=== PATIENT | female | born 1980 | race Caucasian/White ===

== ENCOUNTER → 2017-11-26 13:59 | Outpatient (CLI) | payer OTHER, SELFPAY ==
[2017-11-26 16:19] LABS: Thyroid Stim Hormone (TSH) 1.31 uIU/mL (0.358-3.74)
== END ==
PROVIDERS: Family Provider Family Medicine; PCP Family Medicine; Visit Provider Family Medicine
DX: E03.9 Hypothyroidism, unspecified (principal)
CPT/HCPCS: 36415; 84443

== ENCOUNTER → 2018-07-08 12:15 | Outpatient (CLI) | payer OTHER, SELFPAY ==
--- NOTE | 2018-07-08 12:38 | MRI_ITS ---
STUDY: MRI BRAIN WITH AND WITHOUT CONTRAST REASON FOR EXAM: Female, 38 years old. Dizziness with left ear pain and pressure TECHNIQUE: Standardized multiplanar fat and water weighted pulse sequences were obtained. 4 ml of Gadavist contrast material was administered intravenously for the contrast portion of the examination. COMPARISON: None. FINDINGS: Normal size of the ventricles and extra-axial spaces for the patient's age. There are a couple of tiny punctate white matter lesions without mass effect or restricted diffusion of uncertain etiology or clinical significance. Normal bilateral basal ganglia. Normal thalami. There is no extra-axial fluid accumulation. Normal flow voids within the major intracranial circulation suggesting patency by spin echo criteria. Normal venous enhancement. There is no enhancing intra-axial or extra-axial abnormality. Normal sella turcica, pituitary gland, infundibular stalk, optic chiasm and hypothalamus. Normal tectal plate and pineal gland. Normal midbrain, peri and medulla. Normal cerebellum. Normal basal cisterns. Normal bilateral temporal bones. Normal bilateral internal auditory canals. No demonstrated orbital abnormality, within the constraints of a routine brain study. Mild mucosal thickening of the maxillary ethmoid and right frontal sinuses Normal calvarium and skull base. Normal visualized soft tissue structures. Normal visualized upper cervical spine. MRI/Brain W/WO Contrast IMPRESSION: Minimal periventricular white matter changes of uncertain etiology or clinical significance. No evidence for acute infarct No enhancing lesions. Specifically no evidence for acoustic or vestibular schwannoma. Mild sinusitis Electronically Signed: Tu Thibodeaux MD at 17:40 EST , Service support ,
== END ==
PROVIDERS: Family Provider Family Medicine; PCP Family Medicine; Referring Provider Otolaryngology; Visit Provider Otolaryngology
DX: R42 Dizziness and giddiness (principal)
CPT/HCPCS: 70553; A9585

== ENCOUNTER 2018-07-11 11:11 | Emergency (ER) | payer OTHER, SELFPAY ==
[2018-07-11 11:12] VITALS: BP 139/77; PULSE 103; RESP 18; TEMP 36.8; O2SAT 98; BMI 18.3
--- NOTE | 2018-07-11 11:54 | EKG12_ITS ---
Test Reason : N AND V Blood Pressure : / mmHG Vent. Rate : 082 BPM Atrial Rate : 082 BPM P-R Int : 116 ms QRS Dur : 078 ms QT Int : 378 ms P-R-T Axes : 078 086 081 degrees QTc Int : 441 ms Normal sinus rhythm Normal ECG Confirmed by COURTNEY MARKS, BROCK ([id number]), make up editor EMELY GUEVARA ([id number]) on 07/13/2018 2:17:15 PM Referred By: Elbert Schwartz Confirmed By:BROCK VALDEZ MD
--- NOTE | 2018-07-11 11:59 | NURSING ---
NO OLD EKGS
[2018-07-11 12:09] LABS: Bacteria 0 SEEN /hpf (None Seen); Mucous, Urine 0 SEEN /hpf (<or=2+); Red Blood Cells-Urine 0 SEEN /hpf (0-5); Squamous Epithelial Cells - UA 0 SEEN /hpf (5-10); White Blood Cells 0 SEEN /hpf (0-5)
[2018-07-11] MEDS: 0.9% Normal Saline 1,000 ML 1000 ML IV (12:09)
[2018-07-11] MEDS: Ondansetron 4 MG/2 ML Vial IV (12:09)
[2018-07-11 12:16] LABS: Absolute Lymphocyte Count 1.84 X10^3/ul (0.83-4.51); Absolute Neutrophil Count 5.3 X10^3/uL (2.0-7.7); Basophil# 0.03 X10^3/uL; Basophil% 0.4 % (0-1); Eosinophil# 0.03 X10^3/uL; Eosinophils% 0.4 % (0-5); Hematocrit 40.6 % (37-47); Hemoglobin 13.5 g/dl (12.0-15.0); Lymphocyte # 1.84 X10^3/ul (4.0); Lymphocyte % 23.6 % (19-41); Mean Corp Hgb Conc 33.3 g/gl (32-36); Mean Corpuscular Hgb 30.9 pg (27.0-32.0); Mean Corpuscular Volume 92.9 fL (81-99); Mean Platelet Vol. 10.8 fl (6.2-12.0); Monocyte# 0.59 X10^3/uL; Monocyte% 7.6 % (0-10); Neutrophil # 5.29 X10^3/uL (2.7-7.7); Neutrophil % 67.9 % (47-70); Platelet Count 221 K/mm3 (150-450); RBC Distribution Width CV 13.7 % (11.6-14.6); RBC Distribution Width SD 45.4 fl (35.1-43.9); Red Blood Count 4.37 M/mm3 (4.2-5.4); White Blood Count 7.8 K/mm3 (4.4-11.0)
[2018-07-11 12:19] LABS: POSITIVE COUNT NO; POSITIVE DIFFERENTIAL NO; POSITIVE MORPHOLOGY NO
[2018-07-11 12:19] LABS: Color, Urine Straw (Yellow); Glucose, Dipstick Normal (Normal); Ketone-Dipstick Negative (Negative); Leukocyte Esterase-Dipstick Negative /ul (Negative); Nitrite-Dipstick Negative (Negative); Occult Blood-Urine Negative /ul (Negative); Protein-Dipstick Negative (Negative); Specific Gravity, Urine 1.005 (1.002-1.030); Urine Bilirubin Dipstick Negative (Negative); Urine Clarity Clear (Clear); Urine Urobilinogen Normal (Normal); Urine pH 6.5 (5.0 - 8.0)
[2018-07-11 12:28] VITALS: BP 110/79; BP 118/83; BP 119/83; PULSE 85; PULSE 94; PULSE 95
[2018-07-11 12:29] LABS: ALB/GLOB Ratio 1.1 RATIO (0.9-2.4); AST(SGOT) 18 U/L (15-37); Alanine Aminotransfer ALT/SGPT 33 U/L (13-56); Albumin, Serum 4.1 g/dL (3.2-5.0); Alkaline Phosphatase 43 U/L (45-117); Anion Gap 11 (5-15); BUN 10 mg/dL (7-18); BUN/Creat Ratio 9.9 RATIO (10-20); Calcium,Total 8.7 mg/dL (8.5-10.1); Chloride 108 mmol/L (98-107); Creatinine, Serum 1.01 mg/dL (0.55-1.02); EST Glomerular Filtration Rate 64 mL/min (>60); Est Glom Filt Rate - Afr Amer 78 mL/min (>60); Estimated Creatinine Clearance 53.02 ml/min; Globulin 3.6 g/dL (2.2-4.2); Glucose 95 mg/dL (74-106); Potassium 3.4 mmol/L (3.5-5.1); Protein, Total 7.7 g/dL (6.4-8.2); Sodium Level 143 mmol/L (136-145)
[2018-07-11 12:30] LABS: Pregnancy, Serum, hCG Quali. NEGATIVE Negative (0-9 Nonpreg)
--- NOTE | 2018-07-11 12:49 | ED.DCSUM_ITS ---
- ER Visit Summary Date of Service: 07/11/18 Chief Complaint: Nausea History of Present Illness: The patient is a [address] Medel. She reports that she has had nausea intermittently since June 06. She states that this began while she was doing neck exercises. She reports that she has had intermittent neck soreness since that time. She denies any vertigo. No change in her vision. No slurred speech. She did see Dr. Schwartz for this. She had an MRI that did not show any acute disease. She is also had balance testing. States that she felt improved between June 28 of July 04 while on Medrol Dosepak. She began Omnicef 2 days ago for sinusitis. Patient reports that she has waves of nausea that seem to begin in her head and then spread throughout. She reports that she has palpitations during this. The episodes last hours at a time. She denies any headache, numbness, or weakness. She does report that she is lightheaded. No change with standing. She has not passed out. Review of systems: General: No fever, chills, cold sweats. Cardiovascular: No chest pain, palpitations. Respiratory: No cough, shortness of breath, dyspnea on exertion. Gastrointestinal: No abdominal pain, vomiting, diarrhea, melena, or hematochezia. Genitourinary: No dysuria, frequency, hematuria. Skin: No rash. Neuro: No headache, numbness, weakness. Physical Examination: Vitals: Stable. Afebrile. General: Well-nourished and well-developed. Head: Normocephalic atraumatic. Neck: Supple, no lymphadenopathy. No JVD. No vertebral tenderness palpation. Mild tenderness palpation to the left trapezius muscle and paraspinous musculature. Cardiovascular: Regular rate and rhythm. No murmurs. Respiratory: No respiratory distress. Clear to auscultation bilaterally. Abdominal: Soft, nontender, nondistended, normal bowel sounds. No guarding, rebound, or peritoneal signs. Back: Nontender. Extremities: Nontender, no edema. Skin: Normal color, no rash. Neurologic: Alert and oriented ?3. Cranial nerves II through XII are intact. Normal strength and sensation. Psych: Normal affect. Test Results: EKG is sinus at 82 with no acute changes. CBC is normal. Chem-7 is more for potassium 3.4 chloride 108. LFTs marked for an alk phos of 43. UA is normal. Parents test is negative. Emergency Department Course and Treatment: Patient negative acetic vital signs. She was given a liter normal saline. She was given Zofran IV. She is resting comfortably. Treatment Plan: Discussed with patient at this time I do not have an explanation for her nausea. She will be discharged with Zofran. Instructed to follow-up with Dr. Medel for further evaluation and treatment. Return to the emergency department for any worsening symptoms. Disposition: To home in improved and stable condition. Impression: 1. Nausea, intermittent. This note was generated with [employer] dictation software. It may contain incorrect words, spelling, and punctuation that were not noted in review of the chart prior to signing ED Disposition - Plan for ED Patient: Disposition: Home or Assisted Living Chief Complaint: Nausea/Vomiting Instructions: ED Nausea Vomiting Prescriptions: Ondansetron [Zofran Odt] 4 mg PO Q8H PRN PRN #10 tablet PRN Reason: Nausea Referrals: Enedina Medel MD [Primary Care Provider] - 1-2 Days if not improving
[2018-07-11 13:06] VITALS: BP 109/78; PULSE 68; RESP 18; O2SAT 98
== END 2018-07-11 13:07 | disposition home or self-care (01) ==
LOC: ED 12:21
PROVIDERS: Emergency Provider Emergency Medicine; Family Provider Family Medicine; PCP Family Medicine
DX: R11.0 Nausea (principal); E03.9 Hypothyroidism, unspecified; Z79.899 Other long term (current) drug therapy
CPT/HCPCS: 80053; 81001; 84703; 85025; 93005; 96361; 96374; 99285; J7030; A4216; J2405

== ENCOUNTER → 2018-07-19 15:40 | Outpatient (CLI) | payer OTHER, SELFPAY ==
[2018-07-11 11:12] VITALS: BMI 18.3
--- NOTE | 2018-07-19 15:44 | RAD_ITS ---
STUDY: X-RAY - CERVICAL SPINE REASON FOR EXAM: Female, 38 years old. Migraine headaches TECHNIQUE: 7 view(s) of the cervical spine were obtained. COMPARISON: None FINDINGS: Normal anterior atlantoaxial articulation. Normal odontoid process. There is straightening of the normal cervical lordosis. Normal vertebral bodies and endplates. Normal disc space heights. Normal visualized intervertebral neuroforamina. The soft tissue structures are unremarkable. RAD/Cerv Spine Obl/Flex/Ext Comp IMPRESSION: Normal x-ray examination of the visualized cervical spine. Electronically Signed: Jacques Castillo MD at 11:22 EST , Service support ,
== END ==
PROVIDERS: Family Provider Family Medicine; PCP Family Medicine; Referring Provider Psychiatry & Neurology Neurology; Visit Provider Psychiatry & Neurology Neurology
DX: M54.2 Cervicalgia (principal)
CPT/HCPCS: 72052

== ENCOUNTER 2018-08-22 20:43 | Emergency (ER) | payer OTHER, SELFPAY ==
[2018-08-22 20:44] VITALS: BP 132/98; PULSE 119; RESP 18; TEMP 36.4; O2SAT 100; BMI 19.5
--- NOTE | 2018-08-22 21:05 | ED.DCSUM_ITS ---
- ER Visit Summary Date of Service: 08/22/18 Chief Complaint: neck pressure, afraid to move History of Present Illness: The patient is a 38 F who presents for 1 hour of a pressure sensation in her neck, making her afraid to move. Patient has been having episodes similar to this since May. She states she has episodes every day. She is currently on amitriptyline and thyroid medications for these episodes. Patient states she feels this intense pressure in her neck, and if she moves she feels tingling in her legs. She was feeling well until she had a sharp pain in her right shoulder that radiated to the left shoulder and back and forth. Once it stopped she felt tingly in her face and extremities and thought she was going to pass out. Patient is currently denying any headache, vision changes or dizziness. She has had no loss of bowel or bladder control. No numbness in the groin region. No abdominal pain, vomiting or diarrhea. She denies any history of injury. Physical Examination: Vital signs: afebrile, hemodynamically stable, no hypoxia on room air General: well nourished, well developed, being in bed with the neck slightly hyper extended, very still and sobbing Skin: warm, dry, no rash, no pallor HEENT: normocephalic and atraumatic; PERRL, EOMI, no nystagmus, moist mucous membranes Neck: No midline tenderness, deformities or step-offs. Patient has discomfort but not pain when paraspinal musculature is palpated bilaterally. No masses or lymphadenopathy noted. Patient has passive full range of motion of the neck and complains that her knees tingle when neck is moved. Patient will not actively move her neck. Cardiovascular: Tachycardic rate and rhythm without murmurs, no peripheral edema, 2+ pulses all distal extremities Respiratory: No increased work of breathing, lungs are clear to auscultation bilaterally, no rales, rhonchi or wheezing Abdominal: Abdomen is soft, nontender with normoactive bowel sounds, no guarding or rebound, no masses MSK: Moves all extremities, no deformities, normal strength, hyperreflexive patellar reflexes Neuro: Awake and alert, oriented ?4. No facial droop, sensation and motor function intact and symmetric. Patient feels tingling sensation in all dermatomes when touched on the legs. No sensory deficits on the arms. Tingling sensation of touched on the neck. Test Results: Medications Given Discontinued Medications Lorazepam (Ativan) 1 mg PO X1 ONE Stop: 08/22/18 21:06 Last Admin: 08/22/18 21:08 Dose: 1 mg Emergency Department Course and Treatment: Patient is currently under the care of physicians for this ongoing issue with her neck discomfort and episodes of dizziness. Patient currently has no red flag symptoms that would be concerning for spinal cord compression and requiring an emergent MRI. Patient has to be in physical therapy for 6 weeks before she gets her neck MRI with her primary care doctor. Patient is in physical therapy at this time and states the exercises do help. Because of patient's high level of agitation and holding her neck in a very stiff position, patient was given Ativan for muscle relaxation. Reevaluation, patient states that the Ativan did not help at all. Patient is still complaining of tingling in her legs, and states that when I touched her legs it felt like I was hitting her funny bone. Patient had this sensation in all areas of her legs and it was not specific to one dermatome. Patient was offered a prescription for Ativan and declined saying that it did not help with the tingling. Patient was offered a neck brace to help stabilize her neck and declined. Patient was offered lab work including blood sugar and electrolytes, and she declined saying this it are been done, including a blood sugar check on the way in by ambulance. I discussed with patient that she needs to follow-up with her doctor regarding the outpatient MRI of her neck. Patient had no discomfort while I was bumping the bed while I was reevaluating her and having to discussion about her condition. She did at one time turn her head to the left to answer a question of mine and did it without any obvious discomfort or difficulty. At this time there is no emergent indication for an MRI in the emergency department. Patient's tachycardia would improve while she rested and would increase again when I would speak to her, and see more related to her leve l of anxiousness, she would become tearful as she talked about her condition. Patient was strongly encouraged to follow-up with her doctors and continue the physical therapy. She was discharged home. Treatment Plan: [] Disposition: [] Impression: Paresthesias of the extremities, pressure sensation in the neck This note was generated with Dragon dictation software. It may contain incorrect words, spelling, and punctuation that were not noted in review of the chart prior to signing ED Disposition - Plan for ED Patient: Disposition: Home or Assisted Living Instructions: ED Paraesthesias Referrals: Enedina Medel MD [Primary Care Provider] - As soon as possible Additional Instructions: Continue your medications and your physical therapy as prescribed by your doctor. If you have any worsening of your condition or any new concerning symptoms, please return immediately to the emergency department for another evaluation.
[2018-08-22] MEDS: LORazepam 1 MG Tablet PO (21:08)
[2018-08-22 22:39] VITALS: BP 134/82; PULSE 105; RESP 18; O2SAT 100
== END 2018-08-22 23:03 | disposition home or self-care (01) ==
PROVIDERS: Emergency Provider Emergency Medicine; Family Provider Family Medicine; PCP Family Medicine
DX: R20.2 Paresthesia of skin (principal); M79.89 Other specified soft tissue disorders; E03.9 Hypothyroidism, unspecified; Z79.899 Other long term (current) drug therapy
CPT/HCPCS: 99284

== ENCOUNTER → 2018-11-03 | Outpatient (CLI) | payer OTHER, SELFPAY ==
--- NOTE | 2018-11-03 11:19 | RAD_ITS ---
HISTORY: HEADACHES, NECK PAIN, THORACIC BACK PAIN EXAM/TECHNIQUE: XR Spine Thoracic Min 4 Views: COMPARISON: None. FINDINGS: # of images incl. paperwork: 5 No fracture or dislocation or osseous destruction. Alignment anatomic. No significant degenerative changes. No acute findings in the soft tissues. RAD/Thoracic Spine Min 4 Views IMPRESSION: No acute findings. at [id number] Reported and signed by: Anuj Wooten MD Electronically Signed: Anuj Wooten, at 4:20 EDT Tel , Service support ,
== END | disposition home or self-care (01) ==
LOC: RAD 11:09
PROVIDERS: Family Provider Family Medicine; PCP Family Medicine; Referring Provider Psychiatry & Neurology Neurology; Visit Provider Psychiatry & Neurology Neurology
DX: M54.6 Pain in thoracic spine (principal)
CPT/HCPCS: 72074

== ENCOUNTER → 2019-01-27 | Outpatient (CLI) | payer OTHER, SELFPAY ==
[2019-01-27 12:18] LABS: Thyroid Stim Hormone (TSH) 1.11 uIU/mL (0.358-3.74)
== END | disposition home or self-care (01) ==
LOC: BFHLAB 09:11
PROVIDERS: Family Provider Family Medicine; PCP Family Medicine; Visit Provider Family Medicine
DX: E89.0 Postprocedural hypothyroidism (principal)
CPT/HCPCS: 36415; 84443

== ENCOUNTER → 2019-02-10 | Outpatient (CLI) | payer OTHER, SELFPAY ==
--- NOTE | 2019-02-10 12:33 | MRI_ITS ---
STUDY: MRI CERVICAL SPINE WITHOUT CONTRAST REASON FOR EXAM: Female, 39 years old. Head and neck pain TECHNIQUE: Standardized fat and water weighted pulse sequences were obtained in the sagittal and axial planes. COMPARISON: Cervical spine x-ray 07/19/2018 FINDINGS: Normal foramen magnum and brainstem-cervical cord junction. Normal craniovertebral junction. Normal anterior atlantoaxial articulation. Normal odontoid process. Normal cervical lordosis. Normal vertebral bodies and posterior osseous elements. C2-3: Normal endplates. Normal disc height, signal and morphology. Normal central canal and intervertebral neural foramina. C3-4: Normal endplates. Normal disc height, signal and morphology. Normal central canal and intervertebral neural foramina. C4-5: Normal endplates. Normal disc height, signal and morphology. Normal central canal and intervertebral neural foramina. C5-6: Normal endplates. There is mild posterior disc bulge with minimal ventral thecal sac and narrowing. Normal intervertebral neural foramina. C6-7: Normal endplates. Normal disc height, signal and morphology. Normal central canal and intervertebral neural foramina. C7-T1: Normal endplates. Normal disc height, signal and morphology. Normal central canal and intervertebral neural foramina. Normal cervical cord. Normal visualized soft tissue structures. MRI/Spine Cervical (Routine) IMPRESSION: Mild degenerative change at C5-C6. Electronically Signed: Sumit Sweet, at 16:19 EDT Tel , Service support ,
== END | disposition home or self-care (01) ==
LOC: MRI 12:24
PROVIDERS: Family Provider Family Medicine; PCP Family Medicine; Referring Provider Psychiatry & Neurology Neurology; Visit Provider Psychiatry & Neurology Neurology
DX: M54.2 Cervicalgia (principal)
CPT/HCPCS: 72141

== ENCOUNTER → 2019-04-15 | Outpatient (CLI) | payer OTHER, SELFPAY ==
--- NOTE | 2019-04-15 16:00 | MRI_ITS ---
STUDY: MRI LUMBAR SPINE WITHOUT CONTRAST REASON FOR EXAM: Female, 39 years old. Numbness in legs and back pain TECHNIQUE: Standardized fat and water weighted pulse sequences were obtained in the sagittal and axial planes. COMPARISON: None FINDINGS: T12-L1: Normal endplates. Normal disc height, hydration and morphology. Normal bilateral facet joints. Normal central canal and bilateral lateral recesses. Normal bilateral intervertebral neural foramina. Normal lumbar lordosis. There is no substantial scoliosis. Normal conus medullaris that terminates at T12-L1 L1-2: Normal endplates. Normal disc height, hydration and morphology. Normal bilateral facet joints. Normal central canal and bilateral lateral recesses. Normal bilateral intervertebral neural foramina. L2-3: Normal endplates. Normal disc height, hydration and morphology. Normal bilateral facet joints. Normal central canal and bilateral lateral recesses. Normal bilateral intervertebral neural foramina. L3-4: Normal endplates. Normal disc height, hydration and minimal annular bulge. Normal bilateral facet joints. Normal central canal and bilateral lateral recesses. Normal bilateral intervertebral neural foramina. L4-5: Normal endplates. Normal disc height, hydration and minimal annular bulge.. Normal bilateral facet joints. Normal central canal and bilateral lateral recesses. Normal bilateral intervertebral neural foramina. L5-S1: Normal endplates. Normal disc height, hydration and morphology. Normal bilateral facet joints. Normal central canal and bilateral lateral recesses. Normal bilateral intervertebral neural foramina. Normal visualized sacral ala. Normal visualized paraspinous soft tissue structures. MRI/Spine Lumbar (Routine) IMPRESSION: No evidence for acute fracture or other significant bony pathology. Minimal bulging of the annuli at L3-4 and L4-5. No focal disc protrusion or spinal stenosis Electronically Signed: Tu Thibodeaux MD at 20:01 EDT , Service support ,
--- NOTE | 2019-04-15 16:45 | MRI_ITS ---
STUDY: MRI THORACIC SPINE WITH AND WITHOUT CONTRAST REASON FOR EXAM: Female, 39 years old. Paraplegia with back pain and leg weakness TECHNIQUE: IV Dotarem 9 was administered for the contrast portion of the examination. COMPARISON: None. FINDINGS: Normal kyphosis of the thoracic spine. There is no substantial scoliosis. No evidence for acute fracture or subluxation. Small interosseous hemangioma within the T12 vertebral body. T1-2, T2-3, T3-4, T4-5, T5-6, T6-7, T7-8, T8-9, T9-10, T10-11, T11-12: Normal endplates. Normal disc hydration, heights and morphology of the corresponding intervertebral discs. Normal central canal and intervertebral neural foramina at the corresponding levels. Normal visualized thoracic cord. Normal conus medullaris that terminates at T12-L1 The soft tissue structures are unremarkable. There is no enhancing abnormality. MRI/Spine Thoracic W/WO Contrast IMPRESSION: Small interosseous hemangioma of T12 otherwise normal unenhanced and enhanced MRI examination of the thoracic spine. Electronically Signed: Tu Thibodeaux MD at 16:52 EDT , Service support ,
== END | disposition home or self-care (01) ==
LOC: MRI 15:22
PROVIDERS: Family Provider Family Medicine; PCP Family Medicine; Referring Provider Psychiatry & Neurology Neurology; Visit Provider Psychiatry & Neurology Neurology
DX: G82.22 Paraplegia, incomplete (principal)
CPT/HCPCS: 72148; 72157; A9575

== ENCOUNTER → 2020-01-31 14:02 | Outpatient (CLI) | payer OTHER, SELFPAY ==
[2020-01-31 15:28] LABS: Absolute Lymphocyte Count 1.92 X10^3/uL (0.83-4.51); Absolute Neutrophil Count 4.1 X10^3/uL (2.0-7.7); Basophil# 0.07 X10^3/uL; Eosinophil# 0.19 X10^3/uL; Eosinophils% 2.8 % (0-5); Hematocrit 38.2 % (37-47); Hemoglobin 12.3 g/dL (12.0-15.0); Lymphocyte # 1.92 X10^3/ul (4.0); Lymphocyte % 28.3 % (19-41); Mean Corp Hgb Conc 32.2 g/dL (32-36); Mean Corpuscular Hgb 30.4 pg (27.0-32.0); Mean Corpuscular Volume 94.6 fL (81-99); Mean Platelet Vol. 11.5 fl (6.2-12.0); Monocyte# 0.45 X10^3/uL; Monocyte% 6.6 % (0-10); NRBC Flagged by Analyzer 0 % (0-5); Neutrophil # 4.13 X10^3/uL (2.7-7.7); Neutrophil % 60.9 % (47-70); Platelet Count 257 K/mm3 (150-450); Red Blood Count 4.04 M/mm3 (4.2-5.4); White Blood Count 6.8 K/mm3 (4.4-11.0)
[2020-01-31 16:47] LABS: AST(SGOT) 42 U/L (15-37); Alanine Aminotransfer ALT/SGPT 79 U/L (13-56); Albumin, Serum 3.6 g/dL (3.2-5.0); Alkaline Phosphatase 55 U/L (45-117); Bilirubin, Direct 0.15 mg/dL (0.00-0.30); Globulin 4.1 g/dL (2.2-4.2); Lipase 188 U/L (73-393); Protein, Total 7.7 g/dL (6.4-8.2); Thyroid Stim Hormone (TSH) 0.05 uIU/mL (0.358-3.74)
[2020-02-02 16:08] LABS: Endomysial Antibody IgA Negative (Negative)
[2020-02-02 20:37] LABS: Immunoglobulin A 300 mg/dL (87-352); t-Transglutaminase IgA <2 U/mL (0-3)
== END ==
PROVIDERS: PCP Family Medicine; Visit Provider Family Medicine
DX: R10.13 Epigastric pain (principal); E89.0 Postprocedural hypothyroidism
CPT/HCPCS: 36415; 80076; 82784; 83516; 83690; 84443; 85025; 86255

== ENCOUNTER → 2020-02-22 14:48 | Outpatient (CLI) | payer OTHER, SELFPAY ==
--- NOTE | 2020-02-22 14:54 | CT_ITS ---
STUDY: CT ABDOMEN AND PELVIS WITH CONTRAST REASON FOR EXAM: Female, 40 years old. Umbilical pain. Intermittent diarrhea. RADIATION DOSAGE (If Supplied By Facility): CTDIvol = ( 5.72 ) mGy, DLP = ( 219.78 ) mGycm TECHNIQUE: Transaxial images were obtained from the dome of the diaphragm to the symphysis pubis with oral contrast. 75 ml of ISOVUE-300 contrast was administered. Sagittal and coronal images were reconstructed. Individualized dose optimization techniques were used for this CT. COMPARISON: None. FINDINGS: The visualized lung bases are clear. The visualized portions of the heart and pericardium are within normal limits. There are no calcified gallstones present. The liver is within normal limits. There are no suspicious hepatic lesions. The spleen is normal in size. The pancreas is within normal limits. The adrenal glands are within normal limits. There are no renal or ureteral stones. There is no hydronephrosis. There are no focal renal lesions. Normal visualized stomach. There is no bowel obstruction or inflammation. The appendix is visualized and appears normal. The aorta is normal in caliber. There is no abdominal or pelvic free air, free fluid, fluid collection or lymphadenopathy. There are no destructive osseous lesions. CT/Abdomen/Pelvis WITH Contrast IMPRESSION: No acute abdominal or pelvic pathology. Electronically Signed: Bebo Holley, at 18:22 EDT Tel , Service support ,
== END ==
PROVIDERS: PCP Family Medicine; Referring Provider Family Medicine; Visit Provider Family Medicine
DX: R10.13 Epigastric pain (principal)
CPT/HCPCS: 74177; Q9967

== ENCOUNTER → 2020-04-17 15:48 | Outpatient (CLI) | payer OTHER, SELFPAY ==
[2020-04-17 17:34] LABS: Thyroid Stim Hormone (TSH) 0.15 uIU/mL (0.358-3.74)
== END ==
PROVIDERS: PCP Family Medicine; Visit Provider Family Medicine
DX: E89.0 Postprocedural hypothyroidism (principal)
CPT/HCPCS: 36415; 84443

== ENCOUNTER → 2020-07-28 08:36 | Outpatient (CLI) | payer OTHER, SELFPAY | PROVIDERS: PCP Family Medicine; Referring Provider Family Medicine; Visit Provider Family Medicine | DX: E89.0 Postprocedural hypothyroidism (principal) | CPT/HCPCS: 36415; 84443 ==

== ENCOUNTER → 2020-09-17 15:19 | Outpatient (CLI) | payer BC, SELFPAY ==
[2020-09-17 18:04] LABS: Thyroid Stim Hormone (TSH) 1.17 uIU/mL (0.358-3.74)
== END ==
PROVIDERS: PCP Family Medicine; Visit Provider Family Medicine
DX: E89.0 Postprocedural hypothyroidism (principal)
CPT/HCPCS: 36415; 84443

== ENCOUNTER → 2020-12-03 10:30 | Outpatient (CLI) | payer BC, SELFPAY ==
[2020-12-03 13:08] LABS: T4 Free Direct 1.29 ng/dL (0.76-1.46); Thyroid Stim Hormone (TSH) 9.86 uIU/mL (0.358-3.74)
== END ==
PROVIDERS: PCP Family Medicine; Referring Provider Family Medicine; Visit Provider Family Medicine
DX: E89.0 Postprocedural hypothyroidism (principal)
CPT/HCPCS: 36415; 84439; 84443

== ENCOUNTER → 2021-01-23 09:09 | Outpatient (CLI) | payer BC, SELFPAY ==
[2021-01-23 10:53] LABS: T4 Free Direct 1.34 ng/dL (0.76-1.46); Thyroid Stim Hormone (TSH) 7.82 uIU/mL (0.358-3.74)
== END ==
PROVIDERS: PCP Family Medicine; Referring Provider Family Medicine; Visit Provider Family Medicine
DX: E89.0 Postprocedural hypothyroidism (principal)
CPT/HCPCS: 36415; 84439; 84443

== ENCOUNTER → 2021-04-02 14:45 | Outpatient (CLI) | payer BC, SELFPAY ==
[2021-04-02 18:27] LABS: T4 Free Direct 1.07 ng/dL (0.76-1.46)
== END ==
PROVIDERS: PCP Family Medicine; Referring Provider Family Medicine; Visit Provider Family Medicine
DX: E89.0 Postprocedural hypothyroidism (principal)
CPT/HCPCS: 36415; 84439; 84443

== ENCOUNTER → 2021-05-17 13:53 | Outpatient (CLI) | payer BC, SELFPAY ==
[2021-05-17 15:24] LABS: T4 Free Direct 1.19 ng/dL (0.76-1.46); Thyroid Stim Hormone (TSH) 3.17 uIU/mL (0.358-3.74)
== END ==
PROVIDERS: PCP Family Medicine; Referring Provider Family Medicine; Visit Provider Family Medicine
DX: E89.0 Postprocedural hypothyroidism (principal)
CPT/HCPCS: 36415; 84439; 84443

== ENCOUNTER 2021-07-11 16:32 | Outpatient (CLI) | payer BC, SELFPAY ==
[2021-07-11 18:25] LABS: T4 Free Direct 1.48 ng/dL (0.76-1.46); Thyroid Stim Hormone (TSH) 1.51 uIU/mL (0.358-3.74)
== END 2021-07-11 23:59 | disposition short-term general hospital (02) ==
LOC: MTLAB 16:34
PROVIDERS: PCP Family Medicine; Referring Provider Family Medicine; Visit Provider Family Medicine
DX: E03.9 Hypothyroidism, unspecified (principal)
CPT/HCPCS: 36415; 84439; 84443

== ENCOUNTER → 2021-11-07 | Outpatient (CLI) | payer BC, SELFPAY ==
[2021-11-07 15:32] LABS: T4 Free Direct 1.19 ng/dL (0.76-1.46); Thyroid Stim Hormone (TSH) 7.71 uIU/mL (0.358-3.74)
== END | disposition home or self-care (01) ==
LOC: MTLAB 12:38
PROVIDERS: PCP Family Medicine; Referring Provider Family Medicine; Visit Provider Family Medicine
DX: E03.9 Hypothyroidism, unspecified (principal)
CPT/HCPCS: 36415; 84439; 84443

== ENCOUNTER → 2021-12-19 | Outpatient (CLI) | payer BC, SELFPAY ==
[2021-12-19 18:18] LABS: T4 Free Direct 1.38 ng/dL (0.76-1.46)
== END | disposition home or self-care (01) ==
LOC: MTLAB 16:17
PROVIDERS: PCP Family Medicine; Referring Provider Family Medicine; Visit Provider Family Medicine
DX: E03.9 Hypothyroidism, unspecified (principal)
CPT/HCPCS: 36415; 84439; 84443

== ENCOUNTER → 2022-02-22 | Outpatient (CLI) | payer BC, SELFPAY ==
[2022-02-22 10:06] LABS: T4 Free Direct 1.32 ng/dL (0.76-1.46); Thyroid Stim Hormone (TSH) 3.19 uIU/mL (0.358-3.74)
== END | disposition home or self-care (01) ==
LOC: LAB 08:27
PROVIDERS: PCP Family Medicine; Referring Provider Family Medicine; Visit Provider Family Medicine
DX: E89.0 Postprocedural hypothyroidism (principal)
CPT/HCPCS: 36415; 84439; 84443

== ENCOUNTER 2022-07-31 22:17 | Emergency (ER) | payer BC, SELFPAY ==
[2022-07-31 22:18] VITALS: BP 126/89; PULSE 92; RESP 16; TEMP 36.4; O2SAT 99; BMI 17.9
[2022-07-31 22:21] VITALS: BP 126/89; PULSE 92; RESP 16; TEMP 36.4; O2SAT 99
[2022-07-31 23:31] LABS: Absolute Lymphocyte Count 1.86 X10^3/uL (0.83-4.51); Absolute Neutrophil Count 5.8 X10^3/uL (2.0-7.7); Basophil# 0.05 X10^3/uL; Basophil% 0.6 % (0-1); Eosinophil# 0.03 X10^3/uL; Eosinophils% 0.4 % (0-5); Hematocrit 39.2 % (37-47); Lymphocyte # 1.86 X10^3/ul (0.83-4.51); Mean Corp Hgb Conc 33.2 g/dL (32-36); Mean Corpuscular Volume 93.3 fL (81-99); Mean Platelet Vol. 11.3 fl (6.2-12.0); Monocyte# 0.66 X10^3/uL; Monocyte% 7.8 % (0-10); NRBC Flagged by Analyzer 0 % (0-5); Neutrophil # 5.81 X10^3/uL (2.7-7.7); Neutrophil % 68.8 % (47-70); Platelet Count 197 K/mm3 (150-450); RBC Distribution Width CV 13.6 % (11.6-14.6); RBC Distribution Width SD 46.2 fl (35.1-43.9); White Blood Count 8.4 K/mm3 (4.4-11.0)
[2022-07-31 23:45] LABS: Anion Gap 9 (5-15); BUN 17 mg/dL (7-18); BUN/Creat Ratio 21.1 RATIO (10-20); Calcium,Total 9.2 mg/dL (8.5-10.1); Chloride 109 mmol/L (98-107); Creatinine, Serum 0.81 mg/dL (0.55-1.02); EST Glomerular Filtration Rate 82 mL/min (>60); Est Glom Filt Rate - Afr Amer 99 mL/min (>60); Estimated Creatinine Clearance 62.26 ml/min; Glucose 130 mg/dL (74-106); Potassium 3.3 mmol/L (3.5-5.1); Sodium Level 142 mmol/L (136-145); Thyroid Stim Hormone (TSH) 6.75 uIU/mL (0.358-3.74)
[2022-07-31 23:56] LABS: Alcohol, Blood (Medical)-Serum < 3.0 mg/dL
--- NOTE | 2022-08-01 05:15 | ED.RN ---
Spoke with [facility] about possible acceptance for this pt. [facility] informed this RN about possible acceptance to their facility.
--- NOTE | 2022-08-01 05:47 | EX.ED.DYSGE1 ---
HPI History of Present Illness Chief Complaint: Alt LOC Narrative Narrative: Patient is a 42-year-old female with past medical history of hypothyroidism. She was brought in by EMS today for altered mental status. states he called EMS because the patient was not acting right. The patient denies any fevers or chills chest pain abdominal pain dysuria concern for . She states there is no alcohol or drug abuse going on. She denies any previous admission to a psychiatric hospital. 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 Home Medications levothyroxine 100 mcg tablet 50 mcg PO QMONTH 12/04/14 [History Last Taken 02/14/16] levothyroxine 75 mcg tablet 75 mcg PO DAILY 07/31/22 [History Last Taken Unknown] Allergy/AdvReac Type Severity Reaction Status Date / Time No Known Allergies Allergy Verified 07/31/22 22:24 Surgical History (Updated 07/31/22 @ 22:22 by Mily Jolly) Hx of section Social History Smoking Status: Never smoker ROS ROS ED Constitutional Constitutional ED: Denies chills or fever(s) Eyes Eyes: Denies change in vision ENT ENT ED: Denies sore throat Cardiovascular Cardiovascular: Denies chest pain Respiratory/Chest Respiratory/Chest: Denies cough or dyspnea Gastrointestinal Gastrointestinal: Denies abdominal pain, diarrhea, nausea or vomiting Genitourinary Genitourinary ED: Denies dysuria Musculoskeletal Musculoskeletal: Denies myalgias Integumentary Denies rash Neurologic Neurologic: Denies headache(s) Psychiatric Psychiatric: Denies suicidal ideation or suicidal thoughts Hematologic/Lymphatic Hematologic/Lymphatic: Denies easy bleeding or easy bruising EXAM Physical Exam Const Vital Signs: 07/31/22 22:18 07/31/22 22:21 Temperature 97.6 F L 97.6 F L Temperature Source Temporal Temporal Pulse Rate 92 92 Respiratory Rate 16 16 Blood Pressure 126/89 H 126/89 H Blood Pressure Mean 101 101 Pulse Ox 99 99 Oxygen Delivery Method Room Air Room Air Positive well nourished and well developed General Appearance ED: well developed HEENT Reports moist mucous membranes Eyes PERRL and EOMs intact bilaterally Neck supple Resp normal respiratory effort and clear to auscultation bilaterally Cardio regular rate and regular rhythm GI normal to inspection, nondistended, normoactive bowel sounds, non-tender, non-distended and no masses Auscultation: normoactive bowel sounds Palpation: soft Extremity normal to inspection Neuro oriented x3 and CN's II-XII intact bilaterally Sensorium / Orientation: alert Psych Psych Narrative: Patient has tangential thinking with flight of ideas and pressured speech. Skin no rashes or lesions noted MDM MDM MDM Narrative Medical decision making narrative: Patient presented to the ER with stable vitals. She is awake and alert but with talking with patient she has pressured speech flight of ideas and tangential thinking. There is also occasional hallucinations noted. This is concerning for undiagnosed bipolar disorder. The patient is not homicidal or suicidal but according to has not been taking care of herself. Based on her severe symptoms I do not think outpatient therapy will be appropriate and recommend inpatient treatment. Secondary to this crisis center was contacted and they evaluated the patient. They agree that based on her symptoms she will require aggressive inpatient therapy. The medical work-up reveals no clinically significant findings. The patient is medically cleared for transfer/placement to a psychiatric hospital Lab Data Attestation: I reviewed the patient's lab results. Labs: Laboratory Results - last 24 hr 07/31/22 07/31/22 07/31/22 23:08 23:08 23:08 WBC 8.4 RBC 4.20 Hgb 13.0 Hct 39.2 MCV 93.3 MCH 31.0 MCHC 33.2 RDW Std Deviation 46.2 H RDW Coeff of Marilyn 13.6 Plt Count 197 MPV 11.3 Immature Gran % (Auto) 0.400 Neut % (Auto) 68.8 Lymph % (Auto) 22.0 Labette % (Auto) 7.8 Eos % (Auto) 0.4 Baso % (Auto) 0.6 Absolute Neuts (auto) 5.8 Absolute Lymphs (auto) 1.86 Nucleated RBC % 0 Sodium 142 Potassium 3.3 L Chloride 109 H Carbon Dioxide 24.0 Anion Gap 9 BUN 17 Creatinine 0.81 Estim Creat Clear Calc 62.26 Est GFR (MDRD) Af Amer 99 Est GFR (MDRD) Non-Af 82 BUN/Creatinine Ratio 21.1 H Glucose 130 H Calcium 9.2 TSH 6.75 H Ethyl Alcohol < 3.0 Discharge Plan Triage Chief Complaint: Alt LOC ED Provider: Ran Gilliam Dx/Rx/DC Orders Clinical Impression: Bipolar I disorder with reagan, Hypothyroidism Prescriptions: No Action levothyroxine 100 MCG tablet 50 mcg PO QMONTH levothyroxine 75 mcg tablet 75 mcg PO DAILY Label Comments: TAKE 1 TABLET BY MOUTH EVERY DAY OF THE MONTH EXCEPT 1 DAY Primary Care Provider: Enedina Medel Referrals: Enedina Medel MD [Primary Care Provider] - Disposition Disposition: Psychiatric Hospital or Unit Discharge Location: [facility]
[2022-08-01 05:51] VITALS: BP 123/95; PULSE 101; RESP 16; O2SAT 99
[2022-08-01] MEDS: Levothyroxine 75 MCG Tablet PO (06:08)
[2022-08-01 09:00] VITALS: BP 145/86; PULSE 117; O2SAT 98
== END 2022-08-01 10:03 ==
PROVIDERS: Emergency Provider Emergency Medicine; PCP Family Medicine; Visit Provider Emergency Medicine
DX: F31.9 Bipolar disorder, unspecified (principal); E03.9 Hypothyroidism, unspecified; Z79.899 Other long term (current) drug therapy
CPT/HCPCS: 80048; 82077; 84443; 85025; 87426; 99283

== ENCOUNTER → 2022-12-06 | Outpatient (CLI) | payer BC, SELFPAY ==
[2022-12-06 09:01] LABS: Absolute Lymphocyte Count 0.95 X10^3/uL (0.83-4.51); Absolute Neutrophil Count 5.7 X10^3/uL (2.0-7.7); Basophil# 0.06 X10^3/uL; Basophil% 0.8 % (0-1); Eosinophil# 0.12 X10^3/uL; Eosinophils% 1.6 % (0-5); Hematocrit 39.9 % (37-47); Hemoglobin 13.1 g/dL (12.0-15.0); Lymphocyte # 0.95 X10^3/ul (0.83-4.51); Lymphocyte % 12.8 % (19-41); Mean Corp Hgb Conc 32.8 g/dL (32-36); Mean Corpuscular Hgb 32.5 pg (27.0-32.0); Mean Platelet Vol. 10.5 fl (6.2-12.0); Monocyte# 0.53 X10^3/uL; Monocyte% 7.2 % (0-10); NRBC Flagged by Analyzer 0 % (0-5); Neutrophil # 5.73 X10^3/uL (2.7-7.7); Neutrophil % 77.3 % (47-70); Platelet Count 169 K/mm3 (150-450); RBC Distribution Width CV 12.9 % (11.6-14.6); RBC Distribution Width SD 46.9 fl (35.1-43.9); Red Blood Count 4.03 M/mm3 (4.2-5.4); White Blood Count 7.4 K/mm3 (4.4-11.0)
[2022-12-06 09:28] LABS: ALB/GLOB Ratio 1.1 RATIO (0.9-2.4); AST(SGOT) 19 U/L (15-37); Alanine Aminotransfer ALT/SGPT 33 U/L (13-56); Albumin, Serum 3.9 g/dL (3.2-5.0); Alkaline Phosphatase 51 U/L (45-117); Anion Gap 3 (5-15); BUN 17 mg/dL (7-18); BUN/Creat Ratio 16.5 RATIO (10-20); Calcium,Total 8.9 mg/dL (8.5-10.1); Chloride 108 mmol/L (98-107); Cholesterol 158 mg/dL (200); Creatinine, Serum 1.03 mg/dL (0.55-1.02); EST Glomerular Filtration Rate 62 mL/min (>60); Est Glom Filt Rate - Afr Amer 75 mL/min (>60); Globulin 3.7 g/dL (2.2-4.2); Glucose 101 mg/dL (74-106); High Density Lipoprotein 67 mg/dL; Potassium 4.1 mmol/L (3.5-5.1); Protein, Total 7.6 g/dL (6.4-8.2); Sodium Level 138 mmol/L (136-145); T4 Free Direct 1.29 ng/dL (0.76-1.46); Thyroid Stim Hormone (TSH) 6.69 uIU/mL (0.358-3.74); Triglycerides 40 mg/dL; Very Low Density Lipoprotein 8 mg/dL (5-40)
[2022-12-08 07:42] LABS: Vitamin D,25 Hydroxy 51.5 ng/mL
== END | disposition home or self-care (01) ==
LOC: LAB 08:40
PROVIDERS: PCP Family Medicine; Referring Provider Family Medicine; Visit Provider Family Medicine
DX: Z00.00 Encounter for general adult medical examination without abnormal findings (principal); F31.81 Bipolar II disorder; E03.9 Hypothyroidism, unspecified; E55.9 Vitamin D deficiency, unspecified
CPT/HCPCS: 36415; 80053; 80061; 82306; 84439; 84443; 85025

== ENCOUNTER → 2023-02-03 | Outpatient (CLI) | payer BC, SELFPAY ==
[2023-02-03 15:46] LABS: T4 Free Direct 0.73 ng/dL (0.76-1.46)
== END | disposition home or self-care (01) ==
LOC: BFHLAB 13:54
PROVIDERS: PCP Family Medicine; Referring Provider Family Medicine; Visit Provider Family Medicine
DX: E03.9 Hypothyroidism, unspecified (principal)
CPT/HCPCS: 36415; 84439; 84443

== ENCOUNTER → 2023-04-16 | Outpatient (CLI) | payer BC, SELFPAY ==
[2023-04-16 17:50] LABS: T4 Free Direct 0.78 ng/dL (0.76-1.46)
== END | disposition home or self-care (01) ==
LOC: LAB 16:19
PROVIDERS: PCP Family Medicine; Referring Provider Family Medicine; Visit Provider Family Medicine
DX: E89.0 Postprocedural hypothyroidism (principal)
CPT/HCPCS: 36415; 84439; 84443

== ENCOUNTER → 2023-07-04 | Outpatient (CLI) | payer OTHER, SELFPAY ==
--- OUTSIDE RECORDS SUMMARY | 2023-07-04 10:15 | XMS RPT_ITS | CCD ---
Author Name Unknown Address [address] [place] [address] Organization [facility] Results Test Name Value Interpretation Reference Range Facil ity Summary Purpose Family History No Family History Records Found Advance Directives No Advanced Directives Records Found Additional Source Comments INFORMATION SOURCE (unrecogn ized section and content) FOR RECORDS PERTAINING TO PATIENTS WHO ARE OR HAVE BEEN ENROLLED IN A CHEMICAL DEPENDENCY/SUBSTANCEABUSE PROGRAM, SOME INFORMATION MAY BE OMITTED. This clinical summary was aggregated from multiple sources. Caution should be exercised in using it in the provision of clinical care. This summary normalizes information from multiple sources, and as a consequence, information in this document may materially change the coding, format and clinical context of patient data. In addition, data may be omitted in some cases. CLINICAL DECISIONS SHOULD BE BASED ON THE PRIMARY CLINICAL RECORDS. [employer] provides no warranty or guarantee of the accuracy or completeness of information in this document.
[2023-07-04 11:15] LABS: T4 Free Direct 1.04 ng/dL (0.76-1.46); Thyroid Stim Hormone (TSH) 2.88 uIU/mL (0.358-3.74)
== END | disposition home or self-care (01) ==
LOC: LAB 10:12
PROVIDERS: PCP Family Medicine; Referring Provider Family Medicine; Visit Provider Family Medicine
DX: E89.0 Postprocedural hypothyroidism (principal)
CPT/HCPCS: 36415; 84439; 84443

== ENCOUNTER → 2023-10-10 | Outpatient (CLI) | payer OTHER, SELFPAY ==
[2023-10-10 11:27] LABS: Thyroid Stim Hormone (TSH) 3.77 uIU/mL (0.358-3.74)
== END | disposition home or self-care (01) ==
LOC: LAB 10:15
PROVIDERS: PCP Family Medicine; Referring Provider Family Medicine; Visit Provider Family Medicine
DX: E89.0 Postprocedural hypothyroidism (principal)
CPT/HCPCS: 36415; 84443

== ENCOUNTER → 2024-01-21 | Outpatient (CLI) | payer OTHER, SELFPAY ==
[2024-01-21 18:16] LABS: Thyroid Stim Hormone (TSH) 0.34 uIU/mL (0.358-3.74)
== END | disposition home or self-care (01) ==
LOC: MTLAB 16:29
PROVIDERS: PCP Family Medicine; Referring Provider Family Medicine; Visit Provider Family Medicine
DX: E89.0 Postprocedural hypothyroidism (principal)
CPT/HCPCS: 36415; 84443

== ENCOUNTER → 2024-04-16 | Outpatient (CLI) | payer OTHER, SELFPAY ==
[2024-04-16 09:44] LABS: Absolute Neutrophil Count 2.9 X10^3/uL (2.0-7.7); Basophil# 0.04 X10^3/uL; Basophil% 0.8 % (0-1); Eosinophil# 0.35 X10^3/uL; Eosinophils% 6.6 % (0-5); Hematocrit 39.9 % (37-47); Hemoglobin 12.8 g/dL (12.0-15.0); Lymphocyte % 30.1 % (19-41); Mean Corp Hgb Conc 32.1 g/dL (32-36); Mean Corpuscular Hgb 30.5 pg (27.0-32.0); Mean Corpuscular Volume 95.2 fL (81-99); Monocyte# 0.38 X10^3/uL; Monocyte% 7.1 % (0-10); NRBC Flagged by Analyzer 0 % (0-5); Neutrophil # 2.93 X10^3/uL (2.7-7.7); Platelet Count 195 K/mm3 (150-450); RBC Distribution Width CV 12.8 % (11.6-14.6); RBC Distribution Width SD 44.4 fl (35.1-43.9); Red Blood Count 4.19 M/mm3 (4.2-5.4); White Blood Count 5.3 K/mm3 (4.4-11.0)
[2024-04-16 10:27] LABS: ALB/GLOB Ratio 1.1 RATIO (0.9-2.4); AST(SGOT) 21 U/L (15-37); Alanine Aminotransfer ALT/SGPT 27 U/L (13-56); Albumin, Serum 4.1 g/dL (3.2-5.0); Alkaline Phosphatase 61 U/L (45-117); Anion Gap 7 (5-15); BUN 19 mg/dL (7-18); Calcium,Total 8.9 mg/dL (8.5-10.1); Chloride 109 mmol/L (98-107); Cholesterol 185 mg/dL (200); Creatinine, Serum 1.12 mg/dL (0.55-1.02); EST Glomerular Filtration Rate 56 mL/min (>60); Est Glom Filt Rate - Afr Amer 67 mL/min (>60); Globulin 3.7 g/dL (2.2-4.2); Glucose 95 mg/dL (74-106); High Density Lipoprotein 79 mg/dL; Potassium 3.6 mmol/L (3.5-5.1); Protein, Total 7.8 g/dL (6.4-8.2); Sodium Level 141 mmol/L (136-145); T4 Free Direct 1.17 ng/dL (0.76-1.46); Thyroid Stim Hormone (TSH) 0.737 uIU/mL (0.358-3.740); Triglycerides 62 mg/dL; Very Low Density Lipoprotein 12 mg/dL (5-40)
[2024-04-18 07:58] LABS: Vitamin D,25 Hydroxy 47.9 ng/mL
== END | disposition home or self-care (01) ==
LOC: LAB 08:29
PROVIDERS: PCP Family Medicine; Referring Provider Family Medicine; Visit Provider Family Medicine
DX: Z00.00 Encounter for general adult medical examination without abnormal findings (principal); F31.81 Bipolar II disorder; E03.9 Hypothyroidism, unspecified; E55.9 Vitamin D deficiency, unspecified
CPT/HCPCS: 36415; 80053; 80061; 82306; 84439; 84443; 85025

== ENCOUNTER 2024-09-04 08:38 | Emergency (ER) | payer OTHER, SELFPAY ==
[2024-09-04 08:39] VITALS: BP 127/87; PULSE 114; RESP 20; TEMP 36.6; O2SAT 99; BMI 19.3
--- NOTE | 2024-09-04 09:15 | EKG12_ITS ---
Test Reason : TACHYCARDIA Blood Pressure : */* mmHG Vent. Rate : 106 BPM Atrial Rate : 106 BPM P-R Int : 128 ms QRS Dur : 68 ms QT Int : 332 ms P-R-T Axes : 80 85 77 degrees QTcB Int : 441 ms Sinus tachycardia Otherwise normal ECG Confirmed by COURTNEY MARKS, BROCK ([id number]), acquisition editor JUAN HOWELL ([id number]) on 09/05/2024 8:19:53 AM Referred By: ADRYAN Confirmed By: BROCK VALDEZ MD
[2024-09-04 09:21] LABS: Absolute Lymphocyte Count 0.96 X10^3/uL (0.83-4.51); Absolute Neutrophil Count 2.6 X10^3/uL (2.0-7.7); Basophil# 0.04 X10^3/uL; Eosinophil# 0.09 X10^3/uL; Eosinophils% 2.3 % (0-5); Hematocrit 39.9 % (37-47); Hemoglobin 13.4 g/dL (12.0-15.0); Lymphocyte # 0.96 X10^3/ul (0.83-4.51); Lymphocyte % 24.2 % (19-41); Mean Corp Hgb Conc 33.6 g/dL (32-36); Mean Corpuscular Hgb 31.4 pg (27.0-32.0); Mean Corpuscular Volume 93.4 fL (81-99); Mean Platelet Vol. 10.8 fl (6.2-12.0); Monocyte# 0.29 X10^3/uL; Monocyte% 7.3 % (0-10); NRBC Flagged by Analyzer 0 % (0-5); Neutrophil # 2.58 X10^3/uL (2.7-7.7); Neutrophil % 64.9 % (47-70); Platelet Count 191 K/mm3 (150-450); RBC Distribution Width CV 13.2 % (11.6-14.6); RBC Distribution Width SD 45.6 fl (35.1-43.9); Red Blood Count 4.27 M/mm3 (4.2-5.4)
--- NOTE | 2024-09-04 09:30 | RAD_ITS ---
EXAM: CHEST PA AND LATERAL CLINICAL HISTORY: PALPITAIONS COMPARISON: None. TECHNIQUE: PA and lateral views of the chest obtained. FINDINGS: The cardiac silhouette is not enlarged. No evidence of pulmonary edema. No pulmonary parenchymal consolidative opacities. No pneumothorax or significant pleural effusion. No acute osseous abnormality is identified. RAD/Chest PA and Lateral IMPRESSION: No radiographic evidence of acute cardiopulmonary disease. Reading Location: [id number]
[2024-09-04] MEDS: 0.9% Normal Saline (1000mL) 1,000 ML 999 ML IV (09:49)
[2024-09-04 09:54] LABS: Anion Gap 13 (5-15); BUN 19 mg/dL (4-19); BUN/Creat Ratio 18.6 RATIO (10-20); Calcium,Total 9.4 mg/dL (7.6-11.0); Carbon Dioxide 23.9 mmol/L (21.0-32.0); Chloride 105 mmol/L (98-108); Creatinine, Serum 1.04 mg/dL (0.70-1.20); EST Glomerular Filtration Rate 67 (>60); Estimated Creatinine Clearance 51.11 ml/min (50-250); Glucose 128 mg/dL (70-99); Potassium 3.9 mmol/L (3.3-5.1); Sodium Level 142 mmol/L (133-145); Troponin T High Sensitivity < 6 ng/L (<=14)
--- NOTE | 2024-09-04 10:04 | ED.VIS.CHEST ---
HPI History of Present Illness Chief Complaint: Palpitations Narrative Narrative: Patient is a 44-year-old female with past medical history of hypothyroidism on levothyroxine who presents to the emergency department with a chief complaint of elevated heart rate for the last 2 days. States that yesterday she did notice that while her heart was racing periodically she would feel lightheaded. She states that she had her thyroid checked yesterday as there had been some medication adjustments for her thyroid. Patient denies any recent travel history denies any history of blood clots. Patient denies any recent sick contacts. 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 Home Medications ?Medication ?Instructions ?Recorded ?Last Taken ?Type levothyroxine 100 mcg tablet 50 mcg PO QMONTH 12/04/14 02/14/16 History levothyroxine 75 mcg tablet 75 mcg PO DAILY 07/31/22 Unknown History Allergy/AdvReac Type Severity Reaction Status Date / Time No Known Allergies Allergy Verified 09/04/24 08:42 Surgical History Hx of section Social History Smoking Status: Never smoker ROS ROS ED ROS Narrative Constitutional: Denies fevers, chills, headaches, dizziness Eyes: Denies changes double vision blurry vision Cardiovascular: Denies chest pain or palpitations Respiratory: Complains of mild shortness of breath denies cough Abdomen: Denies abdominal pain nausea vomit diarrhea : Denies any urinary symptoms Neurological: Denies numbness, weakness, tingling Musculoskeletal: Denies back pain Skin: Denies rashes or lesions EXAM Physical Exam Narrative Exam Narrative: General: Patient lying in bed rest comfortably did not appear to be in acute distress Head: Atraumatic, normocephalic Eyes: PERRL bilaterally, EOMI bilateral, no conjunctival injection noted Neck: Soft, supple, trachea midline Cardiovascular: Patient tachycardic with a regular rhythm no murmurs gallops rubs noted respiratory: clear to auscultation bilaterally Abdomen: Soft, nondistended, nontender to palpation Extremities: +5/5 strength noted in the bilateral upper and lower extremity, radial pulse +2/4 in the bilateral extremities, no pedal edema exam Neurological: Patient follow commands knew that she was at [facility] year is 2024 Skin: Warm, dry, intact Const Vital Signs: 09/04/24 08:39 09/04/24 10:39 09/04/24 12:00 Temperature 97.9 F Temperature Source Oral Pulse Rate 114 H 101 H 92 Respiratory Rate 20 H 15 19 H Blood Pressure 127/87 H 107/76 110/75 Blood Pressure Mean 100 86 86 Pulse Ox 99 100 98 Oxygen Delivery Method Room Air Room Air Room Air 09/04/24 12:33 Temperature 98.2 F Temperature Source Pulse Rate 85 Respiratory Rate 18 Blood Pressure 113/96 H Blood Pressure Mean 101 Pulse Ox 98 Oxygen Delivery Method MDM MDM MDM Narrative Medical decision making narrative: Patient is a 44-year-old female who presented to the emergency department with a chief complaint of palpitations. On the differential diagnose includes Melamin to hyperthyroidism, ACS, pneumonia, pneumothorax, PE. Once workup is obtained reviewed she will be reevaluated. Patient CBC reviewed and showed no evidence leukocytosis with blood count normal at 4, he was 13.4, platelet count was noted be 191. Patient sodium normal 142, potassium normal 3.9, creatinine was 1.04. Patient's troponin was less than 6 with a delta troponin of less than 6. Patient's EKG showed sinus tachycardia the rate of 106 bpm with a ME interval 128 QTc of normal at 441. Patient's TSH blood work obtained from the other day was reviewed and was normal at 0.66 with a normal free T4 of 1.40. Patient chest x-ray reviewed by myself by radiology showed no acute cardiopulmonary processes. Given the patient's symptoms and normal workup thus far will add on D-dimer. D-dimer was normal at less than 0.27. Reevaluation patient her heart rate has normalized she is feeling better she would like to go home at this point time. She is advised to stay hydrated follow-up with your doctor in outpatient setting to discuss the potential need for a Holter monitor. We do not have any here in the emergency department today to prescribe her 1. She is vies return with worsening symptoms or concerns she is agreeable this plan all question concerns answered at bedside. Lab Data Labs: Laboratory Results - last 24 hr 09/04/24 09/04/24 09/04/24 09:11 10:01 11:18 WBC 4.0 L RBC 4.27 Hgb 13.4 Hct 39.9 MCV 93.4 MCH 31.4 MCHC 33.6 RDW Std Deviation 45.6 H RDW Coeff of Marilyn 13.2 Plt Count 191 MPV 10.8 Immature Gran % (Auto) 0.300 Neut % (Auto) 64.9 Lymph % (Auto) 24.2 Kings % (Auto) 7.3 Eos % (Auto) 2.3 Baso % (Auto) 1.0 Absolute Neuts (auto) 2.6 Absolute Lymphs (auto) 0.96 Nucleated RBC % 0 D-Dimer Quant (PE/DVT) < 0.27 L Sodium 142 Potassium 3.9 Chloride 105 Carbon Dioxide 23.9 Anion Gap 13 BUN 19 Creatinine 1.04 Estim Creat Clear Calc 51.11 Est GFR (MDRD) Non-Af 67 BUN/Creatinine Ratio 18.6 Glucose 128 H Calcium 9.4 Troponin T High Sens < 6 Troponin T Hi Sens 2 Hr < 6 Radiography Diagnostic Testing: Clinical Impression(s) from Imaging Studies Chest X-Ray 09/04/24 09:30 IMPRESSION: No radiographic evidence of acute cardiopulmonary disease. Reading Location: [address] Discharge Plan Triage Chief Complaint: Palpitations ED Provider: Seb Goodwin Dx/Rx/DC Orders Clinical Impression: Palpitations Prescriptions: No Action levothyroxine 100 MCG tablet 50 mcg PO QMONTH levothyroxine 75 mcg tablet 75 mcg PO DAILY Patient Comments: TAKE 1 TABLET BY MOUTH EVERY DAY OF THE MONTH EXCEPT 1 DAY Primary Care Provider: Enedina Medel Referrals: Enedina Medel MD [Primary Care Provider] - Activity Restrictions/Additional Instructions: Follow-up with your doctor in outpatient setting. Discussed with them about wearing a Holter monitor. Return with worsening symptoms or any concerns. Your thyroid test were normal. Your chest x-ray looked normal and your rest your blood work was normal today. Print Language: Persian Disposition Disposition: Home, Self Care
[2024-09-04 10:39] VITALS: BP 107/76; PULSE 101; RESP 15; O2SAT 100
[2024-09-04 10:41] LABS: D-Dimer Quantitative (DVT/PE) < 0.27 FEU/ug/m (0.27-0.49)
[2024-09-04 11:55] LABS: Troponin T High Sens 2 HR < 6 ng/L (<=14)
[2024-09-04 12:00] VITALS: BP 110/75; PULSE 92; RESP 19; O2SAT 98
[2024-09-04 12:33] VITALS: BP 113/96; PULSE 85; RESP 18; TEMP 36.8; O2SAT 98
== END 2024-09-04 12:52 | disposition home or self-care (01) ==
PROVIDERS: Emergency Provider Emergency Medicine; PCP Family Medicine; Visit Provider Emergency Medicine
DX: R00.2 Palpitations (principal); E03.9 Hypothyroidism, unspecified; Z79.890 Hormone replacement therapy
CPT/HCPCS: 71046; 80048; 84484; 85025; 85379; 93005; 96360; 96361; 99283; A4216

== ENCOUNTER → 2024-12-07 | Outpatient (CLI) | payer OTHER, SELFPAY ==
[2024-12-07 16:48] LABS: Thyroid Stim Hormone (TSH) 0.603 uIU/mL (0.300-4.200)
--- OUTSIDE RECORDS SUMMARY | 2024-12-07 21:52 | XMS RPT_ITS | CCD ---
Author Organization [facility] Care Team Providers Care Ash Conveyor Operator Name Role Phone Enedina Medel MD Primary Care Provider ENEDINA MEDEL Primary Care Unavailable ANA MARÍA GOODE Attending Unavailable ENEDINA MEDEL Primary Care Unavailable ANA MARÍA GOODE Attending Unavailable Dr. Enedina Medel MD Primary Care Provider Dr. Enedina Medel MD Attending Provider [phone] Enedina Medel MD Referring Provider [phone] Seb Goodwin DO Emergency Provider [phone] Dr. Seb Goodwin DO Attending Provider [phone] Enedina Medel Primary Care Unavailable Enedina Medel Attending Unavailable Enedina Medel Referring Unavailable Enedina Medel Primary Care Unavailable Enedina Medel Attending Unavailable Enedina Medel Referring Unavailable Enedina Medel Primary Care Unavailable Enedina Medel Attending Unavailable Enedina Medel Referring Unavailable Lizy, Enedina Primary Care Unavailable Seb Goodwin Attending Unavailable Enedina Medel Attending Unavailable Enedina Medel Referring Unavailable Enedina Medel Primary Care Unavailable Enedina Medel Attending Unavailable Lizy Enedina Referring Unavailable Lizy, Enedina Primary Care Unavailable Medications Current Medications Medication Drug Class(es) Dates Sig (Normalized) Sig (Original) amitriptyline hydrochloride 25 mg oral tablet (3 sources) Tricyclic Antidepressant Start: 08-22-2018 take 50 mg by mouth once daily Amitriptyline Active 50 MG PO DAILY August 22, 2018 1:00am levothyroxine sodium 0.075 mg oral tablet (20 sources) l-Thyroxine Start: 07-31-2022 take 1 tablet by mouth once daily Levothyroxine 75 mcg tablet Active 75 ug PO DAILY July 31, 2022 1:00am Start: 12-04-2014 Levothyroxine 100 MCG tablet Active 50 ug PO EVERY MONTH December 04, 2014 12:00am Start: 12-04-2014 take 50 ug by mouth every month Levothyroxine Active 50 MCG PO EVERY MONTH December 04, 2014 12:00am Start: 12-04-2014 End: 08-18-2023 take 1 tablet by mouth once daily levothyroxine (LEVOXYL) 88 mcg tablet Indications: Hypothyroidism, postsurgical Take 1 tablet by mouth once daily. on Sat and Sun. Take 100 mcg daily Thu-Thu. Take on empty stomach. For Thyroid 24 tablet 0 10/06/2017 08/18/2023 Discontinued Start: 12-04-2014 take 1 tablet by beverly th once daily levothyroxine (LEVOXYL) 100 mcg tablet Indications: Hypothyroidism, postsurgical Take 1 tablet by mouth once daily. Mon- Thu. Take 88 mcg daily on Sat and Sun. Take on empty stomach. For Thyroid. 90 tablet 0 10/06/2017 Active Comment on above: Take 1 tablet by bveerly th once daily. Thu- Thu. Take 88 mcg daily on Sat and Sun. Take on empty stomach. For Thyroid. Take 1 tablet by beverly th once daily. on Sat and Sun. Take 100 mcg daily Thu-Thu. Take on empty stomach. For Thyroid Completed/Discontinued Medications Medication Drug Class(es) Dates Sig (Normalized) Sig (Original) lamoTRIgine 200 mg oral tablet (3 sources) Mood Stabilizer, Anti-epileptic Agent Start: 08-17-2023 lamoTRIgine (LAMICTAL) 200 mg tablet Jnbqikdz-Eb-Hek-Fe -FA ( VITAMIN) ORAL Tab (1 source) Start: 06-10-2010 End: 08-18-2023 take 1 tablet by mouth once daily Qfhvehsf-Bg-Ytt-Fe -FA ( VITAMIN) ORAL Tab Take one(1) tablet daily. 0 06/10/2010 08/18/2023 Discontinued Comment on above: Take one(1) tablet d aily. QUEtiapine 400 mg oral tablet (7 sources) Atypical Antipsychotic Start: 08-18-2023 QUEtiapine (SEROQUEL) 400 mg tablet Start: 08-14-2023 take 1 tablet by beverly th every hour QUEtiapine XR (SEROQUEL XR) 400 mg 24 hr tablet Take 1 tablet by mouth every afternoon. 0 08/14/2023 Active Comment on above: Take 1 tablet by beverly th every afternoon. Take 400 mg by mouth daily at bedtime. Problems Problem Classification Problem Date Documented Date Episodic/Chronic Cardiac dysrhythmias (3 sources) Palpitations; Translations: [Palpitations] Onset: 09-09-2024 09-04-2024 Episodic Complications of surgical procedures or medical care (5 sources) Postoperative hypothyroidism; Translations: [Postprocedural hypothyroidism] Onset: 02-11-2011 06-26-2016 Chronic Immunizations and screening for infectious disease (3 sources) Patient encounter status; Translations: [Encounter for screening for human papillomavirus (HPV)] 08-18-2023 Episodic Menstrual disorders (1 source) Amenorrhea; Translations: [Amenorrhea, unspecified] 08-18-2023 Chronic Mood disorders (6 sources) Manic bipolar I disorder; Translations: [Bipolar disorder, current episode manic without psychotic features, unspecified] 08-09-2022 Chronic Other female genital disorders (4 sources) Polyp of cervix; Translations: [Polyp of cervix uteri] Onset: 08-19-2023 08-18-2023 Episodic Thyroid disorders (6 sources) Hypothyroidism; Translations: [Hypothyroidism, unspecified] 08-09-2022 Chronic Unclassified (3 sources) Uses contraception; Translations: [ control] Onset: 11-07-2015 06-10-2021 Results Test Name Value Interpretation Reference Range Facility 12 Lead EKGon 09-04-2024 12 Lead EKG [facility] Cardiovascular Services [address] [place] [address] 12 Lead EKG 09/04/24 0912 MR#: [id number] Acct: [id number] Name: PERFECTO HOLMAN Rep #: [id number] : 1980 44 From: Jaya Lewis MD Attending Dr: Status: DEP ER Ordering Dr: Seb Goodwin DO Date: 09/04/24 Location: ED Sex: F C Admitted: Test Reason : TACHYCARDIA Blood Pressure : */* mmHG Vent. Rate : 106 BPM Atrial Rate : 106 BPM P-R Int : 128 ms QRS Dur : 68 ms QT Int : 332 ms P-R-T Axes : 80 85 77 degrees QTcB Int : 441 ms Sinus tachycardia Otherwise normal ECG Confirmed by COURTNEY MARKS, JAYA ([id number]), magazine editor JUAN HOWELL ([id number]) on 09/05/2024 8:19:53 AM Referred By: ADRYAN Confirmed By: JAYA LEWIS MD 09/05/24818 Date Jaya Lewis MD CC: Dr. Enedina Medel MD; Dr. Seb Goodwin, DO Signed [facility] Absolute neutrophil countOrd ered By: Seb Goodwin on 09-04-2024 Neutrophils (Bld) [#/Vol] 2.6 10*3/uL 2.0-7.7 [facility] Anion gap in Serum or Plasma Ordered By: Seb Goodwin on 09-04-2024 Anion gap [Moles/Vol] 13 mmol/L 10-27 [facility] BUN/creatinine ratioOrdered By: Seb Goodwin on 09-04-2024 Urea nitrogen/Creatinine [Mass ratio] 18.6 mg/mg 04-03 [facility] Basic Metabolic Profile (BMP )on 09-04-2024 BUN/CRE 18.6 RATIO Normal 04-03 [facility] Comment on above: Performed By: #### L 500.2500, L100.0100, L501.4021 #### [facility] [address] [place], [address] Calcium [Mass/Vol] 9.4 mg/dL Normal 7.6-11.0 [facility] Comment on above: Performed By: #### L 500.2500, L100.0100, L501.4021 #### [facility] [address] [place], [address] Chloride [Moles/Vol] 105 mmol/L Normal 98-108 [facility] Comment on above: Performed By: #### L 500.2500, L100.0100, L501.4021 #### [facility] [address] [place], [address] CO2 [Moles/Vol] 23.9 mmol/L Normal 21.0-32.0 [facility] Comment on above: Performed By: #### L 500.2500, L100.0100, L501.4021 #### [facility] [address] [place], [address] Creatinine [Mass/Vol] 1.04 mg/dL Normal 0.70-1.20 [facility] Comment on above: Performed By: #### L 500.2500, L100.0100, L501.4021 #### [facility] [address] [place], [address] ECRCL 51.11 ml/min Normal 50-250 [facility] Comment on above: Performed By: #### L 500.2500, L100.0100, L501.4021 #### [facility] [address] [place], [address] GAP 13 Normal 5-15 [facility] Comment on above: Performed By: #### L 500.2500, L100.0100, L501.4021 #### [facility] [address] [place], [address] GFR/1.73 sq M.predicted among non-blacks MDRD (S/P/Bld) [Vol rate/Area] 67 mL/min/{1.73_m2} Normal >60 [facility] Comment on above: Result Comment: mL/m in/1.73m2 CKD-EPI Creatinine Equation (2020) Performed By: #### L 500.2500, L100.0100, L501.4021 #### [facility] [address] [place], [address] Glucose [Mass/Vol] 128 mg/dL High 70-99 [facility] Comment on above: Performed By: #### L 500.2500, L100.0100, L501.4021 #### [facility] [address] [place], [address] Potassium [Moles/Vol] 3.9 mmol/L Normal 3.3-5.1 [facility] Comment on above: Performed By: #### L 500.2500, L100.0100, L501.4021 #### [facility] [address] [place], [address] Sodium [Moles/Vol] 142 mmol/L Normal 133-145 [facility] Comment on above: Performed By: #### L 500.2500, L100.0100, L501.4021 #### [facility] [address] [place], [address] Urea nitrogen [Mass/Vol] 19 mg/dL Normal 4-19 [facility] Comment on above: Performed By: #### L 500.2500, L100.0100, L501.4021 #### [facility] [address] [place], [address] Basophil percentageOrdered B y: Seb Goodwin on 09-04-2024 Basophils/100 WBC (Bld) 1.0 % 0-1 [facility] CBC W/Diff, Automatedon 08-14 Absolute Lymph 0.96 X10 3/uL Normal 0.83-4.51 [facility] Comment on above: Performed By: #### L 500.2500, L100.0100, L501.4021 #### [facility] [address] [place], [address] Absolute Neut 2.6 X10 3/uL Normal 2.0-7.7 [facility] Comment on above: Performed By: #### L 500.2500, L100.0100, L501.4021 #### [facility] [address] [place], [address] Basophils/100 WBC (Bld) 1.0 % Normal 0-1 [facility] Comment on above: Performed By: #### L 500.2500, L100.0100, L501.4021 #### [facility] [address] [place], [address] Eosinophils/100 WBC (Bld) 2.3 % Normal 0-5 [facility] Comment on above: Performed By: #### L 500.2500, L100.0100, L501.4021 #### [facility] [address] [place], [address] Erythrocyte distribution width (RBC) [Ratio] 13.2 % Normal 11.6-14.6 [facility] Comment on above: Performed By: #### L 500.2500, L100.0100, L501.4021 #### [facility] [address] [place], [address] Hematocrit (Bld) [Volume fraction] 39.9 % Normal 37-47 [facility] Comment on above: Performed By: #### L 500.2500, L100.0100, L501.4021 #### [facility] [address] [place], [address] Hemoglobin (Bld) [Mass/Vol] 13.4 g/dL Normal 12.0-15.0 [facility] Comment on above: Performed By: #### L 500.2500, L100.0100, L501.4021 #### [facility] [address] [place], [address] IG% 0.300 Normal 0.0-0.9 [facility] Comment on above: Result Comment: IG% - Immature Granulocytes (promyelocytes, myelocytes and metamyelocytes) > 1% indicates that a LEFT SHIFT is Present. Performed By: #### L 500.2500, L100.0100, L501.4021 #### [facility] [address] [place], [address] Lymphocytes/100 WBC (Bld) 24.2 % Normal 19-41 [facility] Comment on above: Performed By: #### L 500.2500, L100.0100, L501.4021 #### [facility] [address] [place], [address] MCH (RBC) [Entitic mass] 31.4 pg Normal 27.0-32.0 [facility] Comment on above: Performed By: #### L 500.2500, L100.0100, L501.4021 #### [facility] [address] [place], [address] MCHC (RBC) [Mass/Vol] 33.6 g/dL Normal 32-36 [facility] Comment on above: Performed By: #### L 500.2500, L100.0100, L501.4021 #### [facility] [address] [place], [address] MCV (RBC) [Entitic vol] 93.4 fL Normal 81-99 [facility] Comment on above: Performed By: #### L 500.2500, L100.0100, L501.4021 #### [facility] [address] [place], [address] Monocytes/100 WBC (Bld) 7.3 % Normal 0-10 [facility] Comment on above: Performed By: #### L 500.2500, L100.0100, L501.4021 #### [facility] [address] [place], [address] Neutrophils/100 WBC (Bld) 64.9 % Normal 47-70 [facility] Comment on above: Performed By: #### L 500.2500, L100.0100, L501.4021 #### [facility] [address] [place], [address] Nucleated RBC (Bld) [#/Vol] 0 10*3/uL Normal 0-5 [facility] Comment on above: Performed By: #### L 500.2500, L100.0100, L501.4021 #### [facility] [address] [place], [address] Platelet mean volume (Bld) [Entitic vol] 10.8 fL Normal 6.2-12.0 [facility] Comment on above: Performed By: #### L 500.2500, L100.0100, L501.4021 #### [facility] [address] [place], [address] Platelets (Bld) [#/Vol] 191 10*3/uL Normal 150-450 [facility] Comment on above: Performed By: #### L 500.2500, L100.0100, L501.4021 #### [facility] [address] [place], [address] RBC (Bld) [#/Vol] 4.27 10*6/uL Normal 4.2-5.4 [facility] Comment on above: Performed By: #### L 500.2500, L100.0100, L501.4021 #### [facility] [address] [place], [address] RDW SD 45.6 fl High 35.1-43.9 [facility] Comment on above: Performed By: #### L 500.2500, L100.0100, L501.4021 #### [facility] [address] [place], [address] WBC (Bld) [#/Vol] 4.0 10*3/uL Low 4.4-11.0 [facility] Comment on above: Performed By: #### L 500.2500, L100.0100, L501.4021 #### [facility] [address] [place], [address] Carbon dioxide, total [Moles /volume] in Central venous bloodOrdered By: Seb Goodwin on 09-04-2024 CO2 [Moles/Vol] 23.9 mmol/L 21.0-32.0 [facility] Chest PA and Lateralon 09-04 Chest PA and Lateral [facility] Imaging Services [address] [place] [address] Chest PA and Lateral MR#: [id number] Acct: [id number] Name: PERFECTO HOLMAN Rep #: [id number] : 1980 F 44 From: Travis Bustillos PCP: Dr. Enedina Medel MD Status: [facility] ER Study: Chest PA and Lateral Date of Exam: 09/04/24 Exam# [id number] Ordering Dr: Seb Goodwin DO EXAM: CHEST PA AND LATERAL CLINICAL HISTORY: PALPITAIONS COMPARISON: None. TECHNIQUE: PA and lateral views of the chest obtained. FINDINGS: The cardiac silhouette is not enlarged. No evidence of pulmonary edema. No pulmonary parenchymal consolidative opacities. No pneumothorax or significant pleural effusion. No acute osseous abnormality is identified. RAD/Chest PA and Lateral IMPRESSION: No radiographic evidence of acute cardiopulmonary disease. Reading Location: [id number] CC: Dr. Enedina Medel MD; Dr. Seb Goodwin DO Airframe Technical Officer: Signed [facility] Chloride assayOrdered By: Josr Goodwin on 09-04-2024 Chloride [Moles/Vol] 105 mmol/L 98-108 [facility] D-Dimer Quantitative (DVT/PE )on 09-04-2024 D-DIMER QUANT < 0.27 Low 0.27-0.49 [facility] Comment on above: Result Comment: NORM AL D-Dimer level (<0.50) indicates no DVT or PE. Performed By: #### L 300.8000 ####[facility] [place] [facility] [address] [place], [address] D-dimer measurement for deep venous thrombosisOrdered By: Seb Goodwin on 09-04-2024 D-Dimer Quantitative (PE/DVT) < 0.27 FEU/ug/m Low 0.27-0.49 [facility] Comment on above: NORMAL D-Dimer level (<0.50) indicates no DVT or PE. Emergency Department Summary on 09-04-2024 Emergency Department Summary [facility] Medical Records Department [address] [place] [address] Emergency Department Summary 09/04/24 MR#: [id number] Acct: [id number] Name: PERFECTO HOLMAN Rep #: [id number] : 1980 44 From: Seb Goodwin DO PCP: Dr. Enedina Medel MD Status:REG ER Location: ED HPI History of Present Illness Chief Complaint: Palpitations Narrative Narrative: Patient is a 44-year-old female with past medical history of hypothyroidism on levothyroxine who presents to the emergency department with a chief complaint of elevated heart rate for the last 2 days. States that yesterday she did notice that while her heart was racing periodically she would feel lightheaded. She states that she had her thyroid checked yesterday as there had been some medication adjustments for her thyroid. Patient denies any recent travel history denies any history of blood clots. Patient denies any recent sick contacts. 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 Home Medications ???Medication ???Instructions ???Recorded ???Last Taken ???Type levothyroxine 100 mcg tablet 50 mcg PO QMONTH 12/04/14 02/14/16 History levothyroxine 75 mcg tablet 75 mcg PO DAILY 07/31/22 Unknown H istory Allergy/AdvReac Type Severity Reaction Status Date / Time No Known Allergies Allergy Verified 09/04/24 08:42 Surgical History Hx of section Social History Smoking Status: Never smoker ROS ROS ED ROS Narrative Constitutional: Denies fevers, chills, headaches, dizziness Eyes: Denies changes double vision blurry vision Cardiovascular: Denies chest pain or palpitations Respiratory: Complains of mild shortness of breath denies cough Abdomen: Denies abdominal pain nausea vomit diarrhea : Denies any urinary symptoms Neurological: Denies numbness, weakness, tingling Musculoskeletal: Denies back pain Skin: Denies rashes or lesions EXAM Physical Exam Narrative Exam Narrative: General: Patient lying in bed rest comfortably did not appear to be in acute distress Head: Atraumatic, normocephalic Eyes: PERRL bilaterally, EOMI bilateral, no conjunctival injection noted Neck: Soft, supple, trachea midline Cardiovascular: Patient tachycardic with a regular rhythm no murmurs gallops rubs noted respiratory: clear to auscultation bilaterally Abdomen: Soft, nondistended, nontender to palpation Extremities: +5/5 strength noted in the bilateral upper and lower extremity, radial pulse +2/4 in the bilateral extremities, no pedal edema exam Neurological: Patient follow commands knew that she was at [facility] year is 2024 Skin: Warm, dry, intact Const Vital Signs: 09/04/24 08:39 09/04/24 10:39 09/04/24 12:00 Temperature 97.9 F Temperature Source Oral Pulse Rate 114 H 101 H 92 Respiratory Rate 20 H 15 19 H Blood Pressure 127/87 H 107/76 110/75 Blood Pressure Mean 100 86 86 Pulse Ox 99 100 98 Oxygen Delivery Method Room Air Room Air Room Air 09/04/24 12:33 Temperature 98.2 F Temperature Source Pulse Rate 85 Respiratory Rate 18 Blood Pressure 113/96 H Blood Pressure Mean 101 Pulse Ox 98 Oxygen Delivery Method MDM MDM MDM Narrative Medical decision making narrative: Patient is a 44-year-old female who presented to the emergency department with a chief complaint of palpitations. On the differential diagnose includes Melamin to hyperthyroidism, ACS, pneumonia, pneumothorax, PE. Once workup is obtained reviewed she will be reevaluated. Patient CBC reviewed and showed no evidence leukocytosis with blood count normal at 4, he was 13.4, platelet count was noted be 191. Patient sodium normal 142, potassium normal 3.9, creatinine was 1.04. Patient's troponin was less than 6 with a delta troponin of less than 6. Patient's EKG showed sinus tachycardia the rate of 106 bpm with a HI interval 128 QTc of normal at 441. Patient's TSH blood work obtained from the other day was reviewed and was normal at 0.66 with a normal free T4 of 1.40. Patient chest x-ray reviewed by myself by radiology showed no acute cardiopulmonary processes. Given the patient's symptoms and normal workup thus far will add on D-dimer. D-dimer was normal at less than 0.27. Reevaluation patient her heart rate has normalized she is feeling better she would like to go home at this point time. She is advised to stay hydrated follow-up with your doctor in outpatient setting to discuss the potential need for a Holter monitor. We do not have any here in the emergency department today to prescribe her 1. She is vies return with worsening symptoms or conc (more content not included)... [facility] Eosinophil percentageOrdered By: Seb Goodwin on 09-04-2024 Eosinophils/100 WBC (Bld) 2.3 % 0-5 [facility] Erythrocyte distribution wid th ratioOrdered By: Seb Goodwin on 09-04-2024 Erythrocyte distribution width (RBC) [Ratio] 13.2 % 11.6-14.6 [facility] Erythrocyte distribution wid th standard deviationOrdered By: Seb Goodwin on 09-04-2024 Erythrocyte distribution width (RBC) [Entitic vol] 45.6 fL High 35.1-43.9 [facility] Estimation of creatinine janet aranceOrdered By: Seb Goodwin on 09-04-2024 Estimated Creatinine Clearance Calc 51.11 ml/min 50-250 [facility] GFR/1.73 sq M.predicted mamie g non-blacks MDRD (S/P/Bld) [Vol rate/Area]Ordered By: Seb Goodwin on 09-04-2024 Estimated GFR (MDRD) Non-Af Amer 67 >60 [facility] Comment on above: mL/min/1.73m2 CKD-EP I Creatinine Equation (2020) Hematocrit Auto (Bld) [Volum e fraction]Ordered By: Seb Goodwin on 09-04-2024 Hematocrit (Bld) [Volume fraction] 39.9 % 37-47 [facility] Hemoglobin measurementOrdere d By: Seb Goodwin on 09-04-2024 Hemoglobin (Bld) [Mass/Vol] 13.4 g/dL 12.0-15.0 [facility] Immature granulocytes/100 WB C Auto (Bld)Ordered By: Seb Goodwin on 09-04-2024 Immature granulocytes/100 WBC (Bld) 0.300 % 0.0-0.9 [facility] Comment on above: IG% - Immature Granu locytes (promyelocytes, myelocytes and metamyelocytes) > 1% indicates that a LEFT SHIFT is Present. L499.0042on 09-04-2024 Trop T High Sen < 6 Normal <=14 [facility] Comment on above: Performed By: #### L 499.0042 ####[facility] [address] [place], [address] L499.0043on 09-04-2024 Trop T High Sen Normal <=14 [facility] Comment on above: Result Comment: Canc elled via OM: Order cancelled - Patient discharged Performed By: #### L 499.0043 #### [facility] [address] [place], [address] L501.4021on 09-04-2024 Trop T High Sen < 6 Normal <=14 [facility] Comment on above: Performed By: #### L 500.2500, L100.0100, L501.4021 #### [facility] [address] [place], [address] Lymphocytes Auto (Unsp spec) [#/Vol]Ordered By: Seb Goodwin on 09-04-2024 Lymphocytes (Bld) [#/Vol] 0.96 10*3/uL 0.83-4.51 [facility] Lymphocytes/100 WBC Auto (Un sp spec)Ordered By: Seb Goodwin on 09-04-2024 Lymphocytes/100 WBC (Bld) 24.2 % 19-41 [facility] MCV (mean corpuscular volume ) determinationOrdered By: Seb Goodwin on 09-04-2024 MCV (RBC) [Entitic vol] 93.4 fL 81-99 [facility] Mean corpuscular hemoglobin (MCH) determinationOrdered By: Seb Goodwin on 09-04-2024 MCH (RBC) [Entitic mass] 31.4 pg 27.0-32.0 [facility] Mean corpuscular hemoglobin concentration (MCHC) determinationOrdered By: Seb Goodwin on 09-04-2024 MCHC (RBC) [Mass/Vol] 33.6 g/dL 32-36 [facility] Mean platelet volume determi nationOrdered By: Seb Goodwin on 09-04-2024 Platelet mean volume (Bld) [Entitic vol] 10.8 fL 6.2-12.0 [facility] Monocyte percentageOrdered B y: Seb Goodwin on 09-04-2024 Monocytes/100 WBC (Bld) 7.3 % 0-10 [facility] Neutrophil percentageOrdered By: Seb Goodwin on 09-04-2024 Neutrophils/100 WBC (Bld) 64.9 % 47-70 [facility] No Panel InformationOrdered By: Seb Goodwin on 09-04-2024 Troponin T High Sensitivity < 6 ng/L <14 [facility] Nucleated red blood cell per centageOrdered By: Seb Goodwin on 09-04-2024 Nucleated RBC/100 WBC (Bld) [Ratio] 0 % 0-5 [facility] Platelet countOrdered By: Josr Goodwin on 09-04-2024 Platelets (Bld) [#/Vol] 191 10*3/uL 150-450 [facility] Potassium (Unsp spec) [Mass/ Vol]Ordered By: Seb Goodwin on 09-04-2024 Potassium [Moles/Vol] 3.9 mmol/L 3.3-5.1 [facility] RBC Auto (Bld) [#/Vol]Ordere d By: Seb Goodwin on 09-04-2024 RBC (Bld) [#/Vol] 4.27 10*6/uL 4.2-5.4 [facility] Serum creatinine measurement (mass/volume)Ordered By: Seb Goodwin on 09-04-2024 Creatinine [Mass/Vol] 1.04 mg/dL 0.70-1.20 [facility] Serum glucose measurement (m ass/volume)Ordered By: Seb Goodwin on 09-04-2024 Glucose [Mass/Vol] 128 mg/dL High 70-99 [facility] Serum or plasma calcium cat urement (mass/volume)Ordered By: Seb Goodwin on 09-04-2024 Calcium [Mass/Vol] 9.4 mg/dL 7.6-11.0 [facility] Serum or plasma urea nitroge n measurement (mass/volume)Ordered By: Seb Goodwin on 09-04-2024 Urea nitrogen [Mass/Vol] 19 mg/dL 4-19 [facility] Sodium levelOrdered By: Bernardo Goodwin on 09-04-2024 Sodium [Moles/Vol] 142 mmol/L 133-145 [facility] Troponin T.cardiac High sens itivity method [Mass/Vol]Ordered By: Seb Goodwin on 09-04-2024 Troponin T High Sensitivity 2 Hour < 6 ng/L <14 [facility] White blood cell (WBC) count Ordered By: Seb Goodwin on 09-04-2024 WBC (Bld) [#/Vol] 4.0 10*3/uL Low 4.4-11.0 [facility] T4 Free Directon 09-03-2024 T4 FREE DIRECT 1.40 ng/dL Normal 0.76-1.46 [facility] Comment on above: Performed By: #### L 506.0400, L501.9520 #### [facility] [address] [place], [place] [address]froilan. [place], [place], [id number] T4 freeOrdered By: Enedina rolle on 09-03-2024 Free T4 [Mass/Vol] 1.40 ng/dL 0.76-1.46 [facility] TSH DL <= 0.005 mIU/L QnOrde red By: Enedina Medel on 09-03-2024 Thyroid Stimulating Hormone (TSH) 0.661 uIU/mL 0.300-4.200 [facility] Thyroid Stim Hormone (TSH)on 09-03-2024 TSH 0.661 uIU/mL Normal 0.300-4.200 [facility] Comment on above: Performed By: #### L 506.0400, L501.9520 #### [facility] [address] [place], [address] Vitamin D,25 Hydroxyon 04-18 Vitamin D 25-OH 47.9 ng/mL Normal [facility] Comment on above: Result Comment: Melba min D 25(OH) Status Range Deficiency <20 ng/mL (50nmol/L) Insufficiency 20 - 30 ng/mL (50 - 75 nmol/L) Sufficiency 30 - 100 ng/mL (75 - 250 nmol/L) Toxicity >100 ng/mL (>250 nmol/L) Performed By: #### L 500.4050, L506.1000, L506.0400, L100.0100, L500.4100, L501.9520 ####[facility] [address] [place], [address] CBC W/Diff, Automatedon 11 Absolute Lymph 1.60 X10 3/uL Normal 0.83-4.51 [facility] Comment on above: Performed By: #### L 500.4050, L506.1000, L506.0400, L100.0100, L500.4100, L501.9520 ####[facility] [address] [place], [address] Absolute Neut 2.9 X10 3/uL Normal 2.0-7.7 [facility] Comment on above: Performed By: #### L 500.4050, L506.1000, L506.0400, L100.0100, L500.4100, L501.9520 ####[facility] [address] [place], [address] Basophils/100 WBC (Bld) 0.8 % Normal 0-1 [facility] Comment on above: Performed By: #### L 500.4050, L506.1000, L506.0400, L100.0100, L500.4100, L501.9520 ####[facility] [address] [place], [address] Eosinophils/100 WBC (Bld) 6.6 % High 0-5 [facility] Comment on above: Performed By: #### L 500.4050, L506.1000, L506.0400, L100.0100, L500.4100, L501.9520 ####[facility] [address] [place], [address] Erythrocyte distribution width (RBC) [Ratio] 12.8 % Normal 11.6-14.6 [facility] Comment on above: Performed By: #### L 500.4050, L506.1000, L506.0400, L100.0100, L500.4100, L501.9520 ####[facility] [address] [place], [address] Hematocrit (Bld) [Volume fraction] 39.9 % Normal 37-47 [facility] Comment on above: Performed By: #### L 500.4050, L506.1000, L506.0400, L100.0100, L500.4100, L501.9520 ####[facility] [address] [place], [address] Hemoglobin (Bld) [Mass/Vol] 12.8 g/dL Normal 12.0-15.0 [facility] Comment on above: Performed By: #### L 500.4050, L506.1000, L506.0400, L100.0100, L500.4100, L501.9520 ####[facility] [address] [place], [address] IG% 0.400 Normal 0.0-0.9 [facility] Comment on above: Result Comment: IG% - Immature Granulocytes (promyelocytes, myelocytes and metamyelocytes) > 1% indicates that a LEFT SHIFT is Present. Performed By: #### L 500.4050, L506.1000, L506.0400, L100.0100, L500.4100, L501.9520 ####[facility] [address] [place], [address] Lymphocytes/100 WBC (Bld) 30.1 % Normal 19-41 [facility] Comment on above: Performed By: #### L 500.4050, L506.1000, L506.0400, L100.0100, L500.4100, L501.9520 ####[facility] [address] [place], [address] MCH (RBC) [Entitic mass] 30.5 pg Normal 27.0-32.0 [facility] Comment on above: Performed By: #### L 500.4050, L506.1000, L506.0400, L100.0100, L500.4100, L501.9520 ####[facility] [address] [place], [address] MCHC (RBC) [Mass/Vol] 32.1 g/dL Normal 32-36 [facility] Comment on above: Performed By: #### L 500.4050, L506.1000, L506.0400, L100.0100, L500.4100, L501.9520 ####[facility] [address] [place], [address] MCV (RBC) [Entitic vol] 95.2 fL Normal 81-99 [facility] Comment on above: Performed By: #### L 500.4050, L506.1000, L506.0400, L100.0100, L500.4100, L501.9520 ####[facility] [address] [place], [address] Monocytes/100 WBC (Bld) 7.1 % Normal 0-10 [facility] Comment on above: Performed By: #### L 500.4050, L506.1000, L506.0400, L100.0100, L500.4100, L501.9520 ####[facility] [address] [place], [address] Neutrophils/100 WBC (Bld) 55.0 % Normal 47-70 [facility] Comment on above: Performed By: #### L 500.4050, L506.1000, L506.0400, L100.0100, L500.4100, L501.9520 ####[facility] [address] [place], [address] Nucleated RBC (Bld) [#/Vol] 0 10*3/uL Normal 0-5 [facility] Comment on above: Performed By: #### L 500.4050, L506.1000, L506.0400, L100.0100, L500.4100, L501.9520 ####[facility] [address] [place], [address] Platelet mean volume (Bld) [Entitic vol] 11.0 fL Normal 6.2-12.0 [facility] Comment on above: Performed By: #### L 500.4050, L506.1000, L506.0400, L100.0100, L500.4100, L501.9520 ####[facility] [address] [place], [address] Platelets (Bld) [#/Vol] 195 10*3/uL Normal 150-450 [facility] Comment on above: Performed By: #### L 500.4050, L506.1000, L506.0400, L100.0100, L500.4100, L501.9520 ####[facility] [address] [place], [address] RBC (Bld) [#/Vol] 4.19 10*6/uL Low 4.2-5.4 [facility] Comment on above: Performed By: #### L 500.4050, L506.1000, L506.0400, L100.0100, L500.4100, L501.9520 ####[facility] [address] [place], [address] RDW SD 44.4 fl High 35.1-43.9 [facility] Comment on above: Performed By: #### L 500.4050, L506.1000, L506.0400, L100.0100, L500.4100, L501.9520 ####[facility] [address] [place], [address] WBC (Bld) [#/Vol] 5.3 10*3/uL Normal 4.4-11.0 [facility] Comment on above: Performed By: #### L 500.4050, L506.1000, L506.0400, L100.0100, L500.4100, L501.9520 ####[facility] [address] [place], [address] Comprehensive Metabolic Prof ilon 04-16-2024 Albumin [Mass/Vol] 4.1 g/dL Normal 3.2-5.0 [facility] Comment on above: Performed By: #### L 500.4050, L506.1000, L506.0400, L100.0100, L500.4100, L501.9520 ####[facility] [address] [place], [address] Albumin/Globulin [Mass ratio] 1.1 {ratio} Normal 0.9-2.4 [facility] Comment on above: Performed By: #### L 500.4050, L506.1000, L506.0400, L100.0100, L500.4100, L501.9520 ####[facility] [address] [place], [address] ALK P 61 U/L Normal 45-117 [facility] Comment on above: Performed By: #### L 500.4050, L506.1000, L506.0400, L100.0100, L500.4100, L501.9520 ####[facility] [address] [place], [address] ALT [Catalytic activity/Vol] 27 U/L Normal 13-56 [facility] Comment on above: Performed By: #### L 500.4050, L506.1000, L506.0400, L100.0100, L500.4100, L501.9520 ####[facility] [address] [place], [address] AST [Catalytic activity/Vol] 21 U/L Normal 15-37 [facility] Comment on above: Performed By: #### L 500.4050, L506.1000, L506.0400, L100.0100, L500.4100, L501.9520 ####[facility] [address] [place], [address] Bilirubin [Mass/Vol] 0.40 mg/dL Normal 0.20-1.00 [facility] Comment on above: Result Comment: For patients on eltrombopag therapy, use of Dimension [place] TBIL is not recommended. Performed By: #### L 500.4050, L506.1000, L506.0400, L100.0100, L500.4100, L501.9520 ####[facility] [address] [place], [address] BUN/CRE 17.0 RATIO Normal 10-20 [facility] Comment on above: Performed By: #### L 500.4050, L506.1000, L506.0400, L100.0100, L500.4100, L501.9520 ####[facility] [address] [place], [address] CA,Total 8.9 mg/dL Normal 8.5-10.1 [facility] Comment on above: Performed By: #### L 500.4050, L506.1000, L506.0400, L100.0100, L500.4100, L501.9520 ####[facility] [address] [place], [address] Chloride [Moles/Vol] 109 mmol/L High 98-107 [facility] Comment on above: Performed By: #### L 500.4050, L506.1000, L506.0400, L100.0100, L500.4100, L501.9520 ####[facility] [address] [place], [address] CO2 [Moles/Vol] 25.0 mmol/L Normal 21.0-32.0 [facility] Comment on above: Performed By: #### L 500.4050, L506.1000, L506.0400, L100.0100, L500.4100, L501.9520 ####[facility] [address] [place], [address] Creatinine [Mass/Vol] 1.12 mg/dL High 0.55-1.02 [facility] Comment on above: Result Comment: The validity of the calculated GFR GFRAA in patients over 70 years has not been determined. Clinical correlation is essential. Performed By: #### L 500.4050, L506.1000, L506.0400, L100.0100, L500.4100, L501.9520 ####[facility] [address] [place], [address] EST GFR - AA 67 mL/min Normal >60 [facility] Comment on above: Result Comment: Afri can [place]cu[place] GFR Calc Performed By: #### L 500.4050, L506.1000, L506.0400, L100.0100, L500.4100, L501.9520 ####[facility] [address] [place], [address] GAP 7 Normal 5-15 [facility] Comment on above: Performed By: #### L 500.4050, L506.1000, L506.0400, L100.0100, L500.4100, L501.9520 ####[facility] [address] [place], [address] GFR/1.73 sq M.predicted among non-blacks MDRD (S/P/Bld) [Vol rate/Area] 56 mL/min/{1.73_m2} Low >60 [facility] Comment on above: Result Comment: Non- GFR Calc Performed By: #### L 500.4050, L506.1000, L506.0400, L100.0100, L500.4100, L501.9520 ####[facility] [address] [place], [address] Globulin (S) [Mass/Vol] 3.7 g/dL Normal 2.2-4.2 [facility] Comment on above: Performed By: #### L 500.4050, L506.1000, L506.0400, L100.0100, L500.4100, L501.9520 ####[facility] [address] [place], [address] Glucose [Mass/Vol] 95 mg/dL Normal 74-106 [facility] Comment on above: Performed By: #### L 500.4050, L506.1000, L506.0400, L100.0100, L500.4100, L501.9520 ####[facility] [address] [place], [address] Potassium [Moles/Vol] 3.6 mmol/L Normal 3.5-5.1 [facility] Comment on above: Performed By: #### L 500.4050, L506.1000, L506.0400, L100.0100, L500.4100, L501.9520 ####[facility] [address] [place], [address] Sodium [Moles/Vol] 141 mmol/L Normal 136-145 [facility] Comment on above: Performed By: #### L 500.4050, L506.1000, L506.0400, L100.0100, L500.4100, L501.9520 ####[facility] [address] [place], [address] T PROT 7.8 g/dL Normal 6.4-8.2 [facility] Comment on above: Performed By: #### L 500.4050, L506.1000, L506.0400, L100.0100, L500.4100, L501.9520 ####[facility] [address] [place], [address] Urea nitrogen [Mass/Vol] 19 mg/dL High 7-18 [facility] Comment on above: Performed By: #### L 500.4050, L506.1000, L506.0400, L100.0100, L500.4100, L501.9520 ####[facility] [address] [place], [address] Lipid Profileon 04-16-2024 Cholesterol [Mass/Vol] 185 mg/dL Normal 200 [facility] Comment on above: Result Comment: <200 mg/dL Desirable 200-240 mg/dL Borderline >240 mg/dL High Risk Performed By: #### L 500.4050, L506.1000, L506.0400, L100.0100, L500.4100, L501.9520 ####[facility] [address] [place], [address] Cholesterol in HDL [Mass/Vol] 79 mg/dL Normal [facility] Comment on above: Result Comment: The drugs N-Acetylcysteine and Metamizole may falsely depress this assay. Reference Range HDL <40 mg/dL Low HDL Cholesterol HDL >or= 60 mg/dL High HDL Cholesterol Performed By: #### L 500.4050, L506.1000, L506.0400, L100.0100, L500.4100, L501.9520 ####[facility] [address] [place], [address] Cholesterol in LDL [Mass/Vol] 94 mg/dL Normal 0-130 [facility] Comment on above: Performed By: #### L 500.4050, L506.1000, L506.0400, L100.0100, L500.4100, L501.9520 ####[facility] [address] [place], [address] Cholesterol in VLDL [Mass/Vol] 12 mg/dL Normal 5-40 [facility] Comment on above: Performed By: #### L 500.4050, L506.1000, L506.0400, L100.0100, L500.4100, L501.9520 ####[facility] [address] [place], [address] Triglyceride [Mass/Vol] 62 mg/dL Normal [facility] Comment on above: Result Comment: The drugs N-Acetylcysteine and Metamizole may falsely depress this assay. Serum Triglycerides Reference Interval Normal <150 mg/dL Borderline high 150 - 199 mg/dL High 200 - 499 mg/dL Very High > or = 500 mg/dL Performed By: #### L 500.4050, L506.1000, L506.0400, L100.0100, L500.4100, L501.9520 ####[facility] [address] [place], [address] T4 Free Directon 04-16-2024 T4 FREE DIRECT 1.17 ng/dL Normal 0.76-1.46 [facility] Comment on above: Performed By: #### L 500.4050, L506.1000, L506.0400, L100.0100, L500.4100, L501.9520 ####[facility] [address] [place], [address] Thyroid Stim Hormone (TSH)on 04-16-2024 TSH 0.737 uIU/mL Normal 0.358-3.740 [facility] Comment on above: Performed By: #### L 500.4050, L506.1000, L506.0400, L100.0100, L500.4100, L501.9520 ####[facility] [address] [place], [address] Thyroid Stim Hormone (TSH)on 01-21-2024 TSH 0.34 uIU/mL Low 0.358-3.74 [facility] Comment on above: Performed By: #### L 501.9520 #### [facility] [address] [place], [place], [address] Serum or plasma thyroid stim ulating hormone (TSH) measurement (units/volume)Ordered By: Enedina Medel on 10-10-2023 TSH Qn 3.77 uIU/mL 0.358-3.74 [facility] CNPNon 08-21-2023 CNPN Telephone (OBGYWM) PERFECTO HOLMAN ([id number]) 1980 F Date Time Provider Department 08/21/23 ANA MARÍA GOODE During your visit today, we recorded the following information about you: Ana María Goode APRN.ROSS 08/21/2023 12:59 PM Signed Please notify pt - cervical polyp pathology is benign. Ana María Goode APRN.Kasia Henry, AMISH 08/21/2023 2:09 PM Signed Patient notified. KASIA AARON RN Allergies As of Date: 08/21/2023 Noted Allergy Reaction NO KNOWN DRUG ALLERGIES 08/07/2005 Date Reviewed: 08/19/2023 Reviewed by: Ana María Goode APRN.OPERATIONS INTERN - Fully Assessed Reason for Visit: Results [95] Prescriptions as of 08/21/2023 - QUEtiapine (SEROQUEL) 400 mg tablet - QUEtiapine (SEROQUEL) 400 mg tablet Take 400 mg by mouth daily at bedtime. - QUEtiapine XR (SEROQUEL XR) 400 mg 24 hr tablet Take 1 tablet by mouth every afternoon. - lamoTRIgine (LAMICTAL) 200 mg tablet - levothyroxine (LEVOXYL) 100 mcg tablet Take 1 tablet by mouth once daily. Mon- Fri. Take 88 mcg daily on Sat and Sun. Take on empty stomach. For Thyroid. Problem List As Of Date 08/21/2023 Noted Resolved Thyroid nodule [E04.1] 12/04/2010 06/26/2016 Hypothyroidism, postsurgical [E89.0] 02/11/2011 Advanced maternal age (AMA) in [IMO00*04/14/2013 12/08/2013 Family history of defects [Z82.79] 04/14/2013 12/08/2013 Hypothyroidism complicating [O99.280,*06/10/2013 12/08/2013 H/O section [Z98.891] 07/13/2015 Supervision of high risk in third tri*07/13/2015 06/26/2016 Hypothyroidism affecting [O99.280, E0*07/17/2015 06/26/2016 control [CLH9268] 11/07/2015 Cervical polyp [N84.1] 08/19/2023 Encounter Status:Closed by KASIA AARON on 08/21/23 [facility] CNOVon 08-19-2023 CNOV Office Visit (OBGYWM) PERFECTO HOLMAN ([id number]) 1980 F Date Time Provider Department 08/19/23 10:30 AM ANA MARÍA GOODE During your visit today, we recorded the following information about you: Blood pressure Weight 110/78 48.3 kg Ana María Goode APRN.CNP 08/19/2023 10:52 AM Signed [employer] offered: Patient declines. Perfetco Holman presents for removal of a cervical polyp noted on exam. She reports no symptoms. UNIVERSAL PROTOCOL / SAFETY CHECKLIST Procedure to be Performed: Cervical Polypectomy Sign In: A Moment of CARE was completed. Personnel directly involved with the procedure wore the appropriate PPE (Personal Protective Equipment). Patient/Surrogate Stated/Verified: PATIENT VERIFIED(optional for EMERGENT procedures): Patient name, Date of , Relevant allergies, and The intended procedure Time Out Communication: Intended patient and procedure match the source documents. Consent documented and matches the intended procedure. No medications required for procedure. Sign Out: SIGN OUT (optional for EMERGENT procedures): All specimen containers correctly labeled. All instruments, equipment, possible retained foreign bodies accounted for. Post-procedure follow-up management communicated and Plan of Care Visit completed when applicable. PROCEDURE: EXTERNAL GENITALIA: Normal in appearance without lesions VAGINA: Normal in appearance without lesions cervical polyp was grasped with ring forceps and removed with gentle twisting motion. Hemostasis at the base of the polyp was secured with pressure. Specimen was labeled and sent to pathology. Patient tolerated procedure well. Plan: Specimens labeled and sent to Pathology. Will notify patient of results in 1-2 weeks. Post-procedure instructions reviewed and written material given to the patient. Ana María Goode APRN.Juan Mckeon MA 08/19/2023 10:25 AM Signed YOUR RECOVERY After your polypectomy you may have: Vaginal bleeding Mild cramping Do NOT put anything in the vagina for 1 week This includes: tampons douches and refraining from having sexual intercourse If you have any discomfort, you may take an over the counter pain medication (motrin, advil, ibuprofen, tylenol, etc). If this does not relieve your discomfort, contact the office. It is okay to wear a sanitary pad until the discharge and spotting stops. RISKS Although problems seldom occur with removal of cervical polyps, there can be some complications. You may feel faint during and shortly after the procedure as well as have some bleeding after the procedure. There is also a risk of infection after the procedure. These complications are rare and can be easily treated. You should contact you doctor is you have any of the following: Heavy bleeding (more than your normal period) Bleeding with clots Severe abdominal pain Fever (more than 100.4F) Foul smelling vaginal discharge RESULTS We will have the results of your biopsy in 1-2 weeks. If you do not hear the results of your biopsy after 2 weeks, please contact the office for the results. If you have any additional questions or concerns please do not hesitate to contact the office. Allergies As of Date: 08/19/2023 Noted Allergy Reaction NO KNOWN DRUG ALLERGIES 08/07/2005 Date Reviewed: 08/19/2023 Reviewed by: Ana María Goode APRN.OPERATIONS INTERN - Fully Assessed Reason for Visit: cervical polypectomy [Other] Primary Visit Diagnosis:Cervical polyp [N84.1] Order(s):CERVICAL BIOPSY OR EXCISION [[id number]] Order #: [id number] SURGICAL PATHOLOGY [[id number]] Order #: [id number] Prescriptions as of 08/19/2023 - QUEtiapine (SEROQUEL) 400 mg tablet - QUEtiapine (SEROQUEL) 400 mg tablet Take 400 mg by mouth daily at bedtime. - QUEtiapine XR (SEROQUEL XR) 400 mg 24 hr tablet Take 1 tablet by mouth every afternoon. - lamoTRIgine (LAMICTAL) 200 mg tablet - levothyroxine (LEVOXYL) 100 mcg tablet Take 1 tablet by mouth once daily. Mon- Fri. Take 88 mcg daily on Sat and Sun. Take on empty stomach. For Thyroid. Problem List As Of Date 08/19/2023 Noted Resolved Thyroid nodule [E04.1] 12/04/2010 06/26/2016 Hypothyroidism, postsurgical [E89.0] 02/11/2011 Advanced maternal age (AMA) in [IMO00*04/14/2013 12/08/2013 Family history of defects [Z82.79] 04/14/2013 12/08/2013 Hypothyroidism complicating [O99.280,*06/10/2013 12/08/2013 H/O section [Z98.891] 07/13/2015 Supervision of high risk in third tri*07/13/2015 06/26/2016 Hypothyroidism affecting [O99.280, E0*07/17/2015 06/26/2016 control [[id number]] 11/07/2015 Cervical polyp [N84.1] 08/19/2023 Other instructions from your clinician: YOUR RECOVERY After your polypectomy you may have: Vaginal bleeding Mild cramping Do NOT put anything in the vagina for 1 week This includes: (more content not included)... Normal [facility] SURGICAL PATHOLOGYon 024 CASE REPORT Normal [facility] Comment on above: Order Comment: Speci men Type: TISSUE SPECIMEN Ordering Facility: [facility] Address: [address] [place] [address] Result Comment: Surg ical Pathology Report Case: [id number] Authorizing Provider: Ana María Goode APRN.OPERATIONS INTERN Collected: 08/19/2023 11:00 AM Ordering Location: OB/Gynecology Received: 08/19/2023 12:22 PM Pathologist: Mega Samuels MD Specimen: ENDOCERVIX POLYP Performed By: #### S #### [facility] CLIA [id number] [address] [place] [address] [place] CLINICAL HISTORY polyp Normal [facility] Comment on above: Order Comment: Speci men Type: TISSUE SPECIMEN Ordering Facility: [facility] Address: [address] [place] [address] Performed By: #### S #### [facility] CLIA [id number] [address] [place] [address] [place] FINAL DIAGNOSIS Normal [facility] Comment on above: Order Comment: Speci men Type: TISSUE SPECIMEN Ordering Facility: [facility] Address: [address] [place] [address] Result Comment: A. E ndocervix, polypectomy: - Benign endocervical polyp. ACV/mm/08/21/2023 Performed By: #### S #### [facility] CLIA [id number] [address] [place] [address] [place] FINAL PERFORMING LAB Normal [facility] Comment on above: Order Comment: Speci men Type: TISSUE SPECIMEN Ordering Facility: [facility] Address: [address] [place] [address] Result Comment: Diag nostic interpretation performed at [facility], [address] [place] [address] CLIA# [id number] [employer]: Paco Alvarez M.D. Performed By: #### S #### [facility] CLIA [id number] [address] [place] [address] [place] GROSS DESCRIPTION Normal [facility] Comment on above: Order Comment: Speci men Type: TISSUE SPECIMEN Ordering Facility: [facility] Address: [address] [place] [address] Result Comment: A. E NDOCERVIX POLYP Received in formalin is a segment of brown mucosal covered polypoid tissue measuring 0.7 x 0.5 x 0.2 cm. The specimen is bisected. Totally submitted in formalin in one cassette. SS August 19, 2023 11:48 PM [place] [address] Performed By: #### S #### [facility] CLIA [id number] [address] [place] [address] [place] CNOVon 08-18-2023 CNOV Office Visit (OBGYWM) PERFECTO HOLMAN ([id number]) 1980 F Date Time Provider Department 08/18/23 7:00 AM ANA MARÍA GOODE During your visit today, we recorded the following information about you: Blood pressure Weight Last Period 90/60 48.6 kg 01/15/23 Ana María Goode, RUBBER TUBING SPLICER.OPERATIONS INTERN 08/18/2023 9:34 AM Signed [employer] offered: Patient declines. Perfecto is a 43 year old who presents for an annual gynecologic exam with complaints, no menses x 6 months . She has noticed hot flashes and night sweats starting. Having both about twice a month. History of thyroidectomy - taking levothyroxine and last labs were 2 months ago. Menses: LMP 01/18/2023 Previously menses were regular and monthly. Over last summer, menses were very light. Contraception: tubal sterilization HPV vaccine: No Last Pap: 01/23/2012 normal HPV: 01/23/2012 negative History of abnormal pap: No Last mammogram: never Sexually active: Yes History of STDS: None Patient concerns for STD exposure: No. 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 Hypothyroidism, postsurgical 01/28/2011 Infertility, female TRYING TO CONCEIEV 4 YEARS Thyroid nodule 12/04/2010 PAST SURGICAL HISTORY Procedure Laterality Date DELIVERY ONLY 11/24/13 , low transverse DELIVERY ONLY 02/19/16 , low transverse HSG 2011 PAST SURGICAL HISTORY OF wisdom teeth extraction PAST SURGICAL HISTORY OF 12/19/14 Stapedectomy left ear THYROIDECTOMY TOTAL/COMPLETE 01/28/2011 follicular adenoma TUBAL LIGATION, 02/19/16 FAMILY HISTORY Problem Relation Age of Onset Osteoporosis Mother other (brain tumor benign) Mother Cancer Father thyroid Hypertension Father Heart Maternal Grandfather Heart Paternal Grandmother CHF Developmental problem Paternal Grandfather Heart Paternal Grandfather SOCIAL HISTORY Social History Tobacco Use Smoking status: Never Passive exposure: Never Smokeless tobacco: Never Vaping Use Vaping Use: Never used Substance Use Topics Alcohol use: No Drug use: No REVIEW OF SYSTEMS Abdomen: No abdominal pain, nausea, vomiting, diarrhea, or constipation. No bloating, early satiety, indigestion, or increased flatulence. Bladder: No dysuria, gross hematuria, urinary frequency, urinary urgency, or incontinence. Breast: No breast lumps, nipple d/c, overlying skin changes, redness or skin retraction. Allergies and current medication updated:Yes EXAM: BP 90/60 Wt 107 lb 3.2 oz (48.6kg) LMP 01/15/2023 GENERAL: pleasant, female in no apparent distress HEENT: Normocephalic, atraumatic, mucus membranes moist, and no lesions NECK: Supple, full range of motion, no adenopathy DERMATOLOGY: Normal, without lesions, non-icteric, and non-hirsute BREAST: soft, non-tender, symmetric, no dominant mass, normal nipple-areolar complex, no lymphadenopathy, and no nipple discharge CHEST: Normal inspiratory effort ABDOMEN: soft, non-tender, and no masses PELVIC: external genitalia normal, normal Bartholin's glands, urethra, Pinson's glands, no vulvar lesions, good vaginal support, physiologic discharge present, normal appearing perineal body and perianal region +Cervical polyp BIMANUAL: uterus normal size, shape and consistency, no adnexal masses, and non-tender RECTOVAGINAL: deferred. NEURO: alert and oriented x3,exam grossly non-focal EXTREMITIES: normal ASSESSMENT/PLAN: 1) Health maintenance: Pap done with HPV. Mammogram ordered - has never had one and is unsure if she will schedule Nutrition, exercise and routine health maintenance exams reviewed. Calcium/Vitamin D supplementation information provided. 2. Amenorrhea - ICD9: 626.0, ICD10: N91.2 - LMP 01/15/2023 following a few months with spotting only - beginning vasomotor symptoms - Given written information on menopause 3. Cervical polyp - ICD9: 622.7, ICD10: N84.1 - asymptomatic - assisted in scheduling polypectomy - CERVICAL BIOPSY OR EXCISION 4) Contraception: tubal sterilization. Contraceptive options reviewed and information provided. 5) STD screening: Declined STD check. 6) Follow up one year and at cervical polypectomy Ana María Goode APRN.Ana María Sosa APRN.CNP 08/18/2023 7:33 AM Signed Menopause Symptoms Not all women experiences menopause in the same way. F (more content not included)... Normal [facility] HPV W/GENOTYPE THIN PREPon 0 08-18-2023 HPV 16 Ag Ql (Unsp spec) Negative Normal Neg ative for HPV DNA high risk type 16 by PCR [facility] Comment on above: Order Comment: Speci men Type: FLUID SPECIMEN Ordering Facility: [facility] Address: [address] [place] [address] Performed By: #### L [id number], HPVHRT #### [facility] CLIA [id number] [address] [place] [address] [place] HPV 18 Ag Ql (Unsp spec) Negative Normal Neg ative for HPV DNA high risk type 18 by PCR [facility] Comment on above: Order Comment: Speci men Type: FLUID SPECIMEN Ordering Facility: [facility] Address: [address] [place] [address] Performed By: #### L [id number], HPVHRT #### [facility] CLIA [id number] [address] [place] [address] [place] HPV 31+33+35+39+45+51+52+56+ 58+59+66+68 DNA ANA+probe Ql (Cvx) Negative for HPV DNA high risk types: 31,33,35,39,45,51,52 ,56,58,59,66,68 by PCR. Normal Negative for HPV DNA high risk types: 31,33,35,39,4 5,51,52,56,58 ,59,66,68 by PCR. [facility] Comment on above: Order Comment: Speci men Type: FLUID SPECIMEN Ordering Facility: [facility] Address: [address] [place] [address] Performed By: #### L [id number], HPVHRT #### [facility] CLIA [id number] [address] [place] [address] [place] PAP TESTon 08-18-2023 ADEQUACY Satisfactory for interpretation Normal [facility] Comment on above: Order Comment: Speci men Type: FLUID SPECIMEN Ordering Facility: [facility] Address: [address] [place] [address] Performed By: #### L [id number], HPVHRT #### [facility] CLIA [id number] [address] [place] [address] [place] CASE REPORT Normal [facility] Comment on above: Order Comment: Speci men Type: FLUID SPECIMEN Ordering Facility: [facility] Address: [address] [place] [address] Result Comment: Gyne cologic Cytology Report Case: [id number] Authorizing Provider: Ana María Goode APRN.OPERATIONS INTERN Collected: 08/18/2023 08:07 AM Ordering Location: OB/Gynecology Received: 08/18/2023 11:56 AM First Screen: [place], Kasey, CT, ASCP Specimen: Pap Test, ThinPrep, Cervix Performed By: #### L [id number], HPVHRT #### [facility] CLIA [id number] [address] [place] [address] [place] CLINICAL HISTORY, CYTOLOGY, FOUNTAIN CLERK Routine Exam Normal [facility] Comment on above: Order Comment: Speci men Type: FLUID SPECIMEN Ordering Facility: [facility] Address: [address] [place] [address] Performed By: #### L [id number], HPVHRT #### [facility] CLIA [id number] [address] [place] [address] [place] FINAL PERFORMING LAB Normal [facility] Comment on above: Order Comment: Speci men Type: FLUID SPECIMEN Ordering Facility: [facility] Address: [address] [place] [address] Result Comment: Tech nical component, roll forger screening performed at [facility], [address] [place] [id number] CLIA# [id number] Diagnostic interpretation performed at [facility], [address] [place] [address] CLIA# [id number] [employer]: Paco Alvarez M.D. Performed By: #### L [id number], HPVHRT #### [facility] CLIA [id number] [address] [place] [address] [place] HPV REFLEX Yes HPV Normal [facility] Comment on above: Order Comment: Speci men Type: FLUID SPECIMEN Ordering Facility: [facility] Address: [address] [place] [address] Performed By: #### L [id number], HPVHRT #### [facility] CLIA [id number] [address] [place] [address] [place] INTERPRETATION, CYTOLOGY, FOUNTAIN CLERK Normal [facility] Comment on above: Order Comment: Speci men Type: FLUID SPECIMEN Ordering Facility: [facility] Address: [address] [place] [address] Result Comment: Nega tive for intraepithelial lesion or malignancy. Performed By: #### L [id number], HPVHRT #### [facility] CLIA [id number] [address] [place] [address] [place] LMP 01/15/2023 Normal [facility] Comment on above: Order Comment: Speci men Type: FLUID SPECIMEN Ordering Facility: [facility] Address: [address] [place] [address] Performed By: #### L [id number], HPVHRT #### [facility] CLIA [id number] [address] [place], [place] [id number] [place] PAP DISCLAIMER COMMENT The Pap Smear is a screening test for cervical cancer. False negative results occur with all screening tests, emphasizing the need for rescreening at recommended intervals, and clinical correlation. Normal [facility] Comment on above: Order Comment: Speci men Type: FLUID SPECIMEN Ordering Facility: [facility] Address: [address] [place] [address] Performed By: #### L [id number], HPVHRT #### [facility] CLIA [id number] [address] [place] [address] [place] PAP NURSE CHARGE RN COMMENT This specimen has been analyzed by the ThinPrep Imaging System, an automated imaging and review system, which assists the laboratory in evaluating cells on ThinPrep Pap tests. Following automated imaging, selected morrow from every slide are reviewed by a roll forger. Normal [facility] Comment on above: Order Comment: Speci men Type: FLUID SPECIMEN Ordering Facility: [facility] Address: [address] [place] [address] Performed By: #### L [id number], HPVHRT #### [facility] CLIA [id number] [address] [place] [address] [place] Serum or plasma thyroid stim ulating hormone (TSH) measurement (units/volume)Ordered By: Enedina Medel on 07-04-2023 TSH Qn 2.88 uIU/mL 0.358-3.74 [facility] Thin prep Papanicolaou smear with manual screeningOrdered By: Enedina Medel on 07-04-2023 Thin prep Papanicolaou smear with manual screening 1.04 ng/dL 0.76-1.46 [facility] - Chemistry and C hemistry - challengeOrdered By: Enedina Medel on 04-16-2023 Free T4 [Mass/Vol] 0.78 ng/dL 0.76-1.46 [facility] No Panel InformationOrdered By: Enedina Medel on 04-16-2023 Thyroid Stimulating Hormone (TSH) 13.30 uIU/mL 0.358-3.74 [facility] - Chemistry and C hemistry - challengeOrdered By: Enedina Medel on 02-03-2023 Free T4 [Mass/Vol] 0.73 ng/dL 0.76-1.46 [facility] No Panel InformationOrdered By: Enedina Medel on 02-03-2023 Thyroid Stimulating Hormone (TSH) 19.20 uIU/mL 0.358-3.74 [facility] Absolute lymphocyte countOrd ered By: Enedina Medel on 12-06-2022 Lymphocytes Auto (Unsp spec) [#/Vol] 0.95 10*3/uL 0.83-4.51 [facility] Basophil percentageOrdered B y: Enedina Medel on 12-06-2022 Basophils/100 WBC (Bld) 0.8 % 0-1 [facility] Bilirubin [Mass/Vol] 0.30 mg/dL 0.20-1.00 [facility] Comment on above: For patients on eltr ombopag therapy, use of Dimension [place] TBIL is not recommended. Chloride [Moles/Vol] 108 mmol/L 98-107 [facility] Cholesterol [Mass/Vol] 158 mg/dL <200 [facility] Comment on above: <200 mg/dL Desirable 200-240 mg/dL Borderline >240 mg/dL High Risk Eosinophils/100 WBC (Bld) 1.6 % 0-5 [facility] Glucose [Mass/Vol] 101 mg/dL 74-106 [facility] Comment on above: Fasting Glucose resu lt from 100 to 125 mg/dL suggests IMPAIRED HOMEOSTASIS per A.D.A. criteria. Neutrophils (Bld) [#/Vol] 5.7 10*3/uL 2.0-7.7 [facility] Neutrophils/100 WBC (Bld) 77.3 % 47-70 [facility] Potassium [Moles/Vol] 4.1 mmol/L 3.5-5.1 [facility] Protein [Mass/Vol] 7.6 g/dL 6.4-8.2 [facility] Sodium [Moles/Vol] 138 mmol/L 136-145 [facility] Triglyceride [Mass/Vol] 40 mg/dL <199 [facility] Comment on above: The drugs N-Acetylcy steine and Metamizole may falsely depress this assay.Serum Triglycerides Reference Interval Normal <150 mg/dL Borderline high 150 - 199 mg/dL High 200 - 499 mg/dL Very High > or = 500 mg/dL WBC (Bld) [#/Vol] 7.4 10*3/uL 4.4-11.0 [facility] Blood erythrocytes count (nu mber/volume)Ordered By: Enedina Medel on 12-06-2022 RBC (Bld) [#/Vol] 4.03 10*6/uL 4.2-5.4 [facility] Blood hemoglobin measurement (mass/volume)Ordered By: Enedina Medel on 12-06-2022 Hemoglobin (Bld) [Mass/Vol] 13.1 g/dL 12.0-15.0 [facility] Blood lymphocytes/100 leukoc ytesOrdered By: Enedina Medel on 12-06-2022 Lymphocytes/100 WBC (Bld) 12.8 % 19-41 [facility] Blood monocytes/100 leukocyt esOrdered By: Enedina Medel on 12-06-2022 Monocytes/100 WBC (Bld) 7.2 % 0-10 [facility] Blood platelet mean volumeOr dered By: Enedina Medel on 12-06-2022 Platelet mean volume (Bld) [Entitic vol] 10.5 fL 6.2-12.0 [facility] Determination of erythrocyte mean corpuscular volume (MCV)Ordered By: Enedina Medel on 12-06-2022 MCV (RBC) [Entitic vol] 99.0 fL 81-99 [facility] Hematocrit Auto (Bld) [Volum e fraction]Ordered By: Enedina Medel on 12-06-2022 Hematocrit (Bld) [Volume fraction] 39.9 % 37-47 [facility] - Chemistry and C hemistry - challengeOrdered By: Enedina Medel on 12-06-2022 ALP [Catalytic activity/Vol] 51 U/L 45-117 [facility] ALT [Catalytic activity/Vol] 33 U/L 13-56 [facility] CO2 [Moles/Vol] 27.0 mmol/L 21.0-32.0 [facility] Free T4 [Mass/Vol] 1.29 ng/dL 0.76-1.46 [facility] Globulin (S) [Mass/Vol] 3.7 g/dL 2.2-4.2 [facility] Urea nitrogen/Creatinine [Mass ratio] 16.5 mg/mg 10-20 [facility] - Hematology and Cell countsOrdered By: Enedina Medel on 12-06-2022 Erythrocyte distribution width (RBC) [Entitic vol] 46.9 fL 35.1-43.9 [facility] Erythrocyte distribution width (RBC) [Ratio] 12.9 % 11.6-14.6 [facility] Immature granulocytes/100 WBC (Bld) 0.300 % 0.0-0.9 [facility] Comment on above: IG% - Immature Granu locytes (promyelocytes, myelocytes and metamyelocytes) > 1% indicates that a LEFT SHIFT is Present. MCH (RBC) [Entitic mass] 32.5 pg 27.0-32.0 [facility] Nucleated RBC/100 WBC (Bld) [Ratio] 0 % 0-5 [facility] MCHC Auto (RBC) [Mass/Vol]Or dered By: Enedina Medel on 12-06-2022 MCHC (RBC) [Mass/Vol] 32.8 g/dL 32-36 [facility] No Panel InformationOrdered By: Enedina Medel on 12-06-2022 Estimated GFR (MDRD) Amer 75 mL/min >60 [facility] Comment on above: GFR Calc Estimated GFR (MDRD) Non-Af Amer 62 mL/min >60 [facility] Comment on above: Non- GFR Calc Thyroid Stimulating Hormone (TSH) 6.69 uIU/mL 0.358-3.74 [facility] Vitamin D 25-Hydroxy 51.5 ng/mL [facility] Comment on above: Vitamin D 25(OH) Sta tus Range Deficiency <20 ng/mL (50nmol/L) Insufficiency 20 - 30 ng/mL (50 - 75 nmol/L) Sufficiency 30 - 100 ng/mL (75 - 250 nmol/L) Toxicity >100 ng/mL (>250 nmol/L) Platelets bldOrdered By: Gibson Medel on 12-06-2022 Platelets (Bld) [#/Vol] 169 10*3/uL 150-450 [facility] Serum or plasma albumin cat urement (mass/volume)Ordered By: Enedina Medel on 12-06-2022 Albumin [Mass/Vol] 3.9 g/dL 3.2-5.0 [facility] Serum or plasma albumin/glob ulin mass ratioOrdered By: Enedina Medel on 12-06-2022 Albumin/Globulin [Mass ratio] 1.1 {ratio} 0.9-2.4 [facility] Serum or plasma calcium cat urement (mass/volume)Ordered By: Enedina Medel on 12-06-2022 Calcium [Mass/Vol] 8.9 mg/dL 8.5-10.1 [facility] Serum or plasma cholesterol in HDL measurement (mass/volume)Ordered By: Enedina Medel on 12-06-2022 Cholesterol in HDL [Mass/Vol] 67 mg/dL >40 [facility] Comment on above: The drugs N-Acetylcy steine and Metamizole may falsely depress this assay. Reference Range HDL <40 mg/dL Low HDL Cholesterol HDL >or= 60 mg/dL High HDL Cholesterol Serum or plasma cholesterol in VLDL measurement (mass/volume)Ordered By: Enedina Medel on 12-06-2022 Cholesterol in VLDL [Mass/Vol] 8 mg/dL 5-40 [facility] Serum or plasma creatinine m easurement (mass/volume)Ordered By: Enedina Medel on 12-06-2022 Creatinine [Mass/Vol] 1.03 mg/dL 0.55-1.02 [facility] Comment on above: The validity of the calculated GFR & GFRAA in patients over 70 years has not been determined. Clinical correlation is essential. Serum or plasma low density lipoprotein (LDL) cholesterol measurement (mass/volume)Ordered By: Enedina Medel on 12-06-2022 Cholesterol in LDL [Mass/Vol] 83 mg/dL 0-130 [facility] Serum or plasma urea nitroge n measurement (mass/volume)Ordered By: Enedina Medel on 12-06-2022 Urea nitrogen [Mass/Vol] 17 mg/dL 7-18 [facility] Thin prep Papanicolaou smear with manual screeningOrdered By: Enedina Medel on 12-06-2022 Thin prep Papanicolaou smear with manual screening 19 U/L 15-37 [facility] Thin prep Papanicolaou smear with manual screening 3 5-15 [facility] Laboratory - Chemistry and C hemistry - challengeon 02-22-2022 Free T4 [Mass/Vol] 1.32 ng/dL 0.76-1.46 [facility] Work Phone: No Panel Informationon 02-22 Thyroid Stimulating Hormone (TSH) 3.19 uIU/mL 0.358-3.74 [facility] Work Phone: Laboratory - Chemistry and C hemistry - challengeon 12-19-2021 Free T4 [Mass/Vol] 1.38 ng/dL 0.76-1.46 [facility] Work Phone: No Panel Informationon 12-19 Thyroid Stimulating Hormone (TSH) 4.20 uIU/mL 0.358-3.74 [facility] Work Phone: Laboratory - Chemistry and C hemistry - challengeon 11-07-2021 Free T4 [Mass/Vol] 1.19 ng/dL 0.76-1.46 [facility] Work Phone: No Panel Informationon 11-07 Thyroid Stimulating Hormone (TSH) 7.71 uIU/mL 0.358-3.74 [facility] Work Phone: Vital Signs Date Time Vital Sign Value Performing Clinician Faci lity 09-04-2024 12:33-0400 Body temperature 98.2 [degF] Dr. Enedina Medel MD Work Phone: [facility] 09-04-2024 12:33-0400 Diastolic blood pressure 96 mm[Hg] Dr. Enedina Medel MD Work Phone: [facility] 09-04-2024 12:33-0400 Heart rate 85 /min Dr. Enedina Medel MD Work Phone: [facility] 09-04-2024 12:33-0400 Respiratory rate 18 /min Dr. Enedina Medel MD Work Phone: [facility] 09-04-2024 12:33-0400 SaO2% (BldA) [Mass fraction] 98 % Dr. Enedina Medel MD Work Phone: [facility] 09-04-2024 12:33-0400 Systolic blood pressure 113 mm[Hg] Dr. Enedina Medel MD Work Phone: [facility] 09-04-2024 08:39-0400 Body height 157.[address] Enedina Medel MD Work Phone: [facility] 09-04-2024 08:39-0400 Body mass index (BMI) [Ratio] 19.3 kg/m2 Dr. Enedina Medel MD Work Phone: [facility] 09-04-2024 08:39-0400 Body weight 47.[address] Enedina Medel MD Work Phone: [facility] 08-19-2023 10:28-0500 Body weight 48.26 kg Ana María Goode APRN.OPERATIONS INTERN Work Phone: [facility] 08-19-2023 10:28-0500 Diastolic blood pressure 78 mm[Hg] Ana María Goode APRN.OPERATIONS INTERN Work Phone: [facility] 08-19-2023 10:28-0500 Systolic blood pressure 110 mm[Hg] Ana María Goode APRN.OPERATIONS INTERN Work Phone: [facility] 08-18-2023 07:03-0500 Body weight 48.63 kg Ana María Goode APRN.OPERATIONS INTERN Work Phone: [facility] 08-18-2023 07:03-0500 Diastolic blood pressure 60 mm[Hg] Ana María Goode APRN.OPERATIONS INTERN Work Phone: [facility] 08-18-2023 07:03-0500 Systolic blood pressure 90 mm[Hg] Ana María Goode APRN.OPERATIONS INTERN Work Phone: [facility] Encounters Encounter Date Encounter Type Care Provider Facility Start: 11-30-2024 ambulatory [facility] Facility: [facility] Start: 09-13-2024 ambulatory [facility] Facility: [facility] Start: 09-04-2024 End: 09-04-2024 Emergency department patient visit Dr. Enedina Medel MD Work Phone: -Emergency Department Work Phone: Start: 09-03-2024 End: 09-03-[address] Enedina Medel MD -Laboratory Work Phone: Start: 09-03-[address] Enedina tucker MD -Laboratory Work Phone: Start: 09-03-2024 End: 09-03-[address] Enedina Medel MD Work Phone: [facility] Work Phone: Start: 05-05-2024 Encounter for genera l adult medical examination without abnormal findings Enedina Medel [facility] Start: 04-16-2024 End: 04-16-2024 ambulatory Enedina Medel Facility[facility] Start: 01-21-2024 End: 01-21-2024 ambulatory Enedina Mijennifer Facility:[facility] Start: 10-10-2023 End: 10-10-2023 ambulatory [facility] Work Phone: Start: 10-10-2023 End: 10-10-2023 Patient encounter procedure [facility] Work Phone: Start: 08-21-2023 Telephone encounter Ana María mcgovern APRN.CNP Work Phone: OB/Gynecology Comment on above: Results Start: 08-19-2023 End: 08-19-2023 ambulatory ENEDINA MEDEL Facility:[facility] Start: 08-19-2023 End: 08-19-2023 Patient encounter procedure Ana María Goode APRN.CNP Work Phone: OB/Gynecology Comment on above: Cervical polyp (Prim danilo Dx) Start: 08-18-2023 End: 08-18-2023 ambulatory ENEDINA MEDEL Facility:[facility] Start: 08-18-2023 End: 08-18-2023 Patient encounter procedure Ana María Goode APRN.OPERATIONS INTERN Work Phone: OB/Gynecology Comment on above: Encounter for gyneco logical examination with abnormal finding (Primary Dx); Amenorrhea; Cervical polyp; Encounter for Papanicolaou smear for cervical cancer screening; Special screening examination for human papillomavirus (HPV); Screening mammogram for breast cancer Start: 08-18-2023 End: 08-18-2023 Patient encounter status Ana María Goode APRN.OPERATIONS INTERN Work Phone: [facility] Start: 07-04-2023 End: 07-04-2023 [facility] Start: 04-16-2023 End: 04-16-2023 ambulatory [facility] Work Phone: Start: 04-16-2023 End: 04-16-2023 [facility] Start: 02-03-2023 End: 02-03-2023 ambulatory [facility] Work Phone: Start: 02-03-2023 End: 02-03-2023 Patient encounter procedure [facility] García Shoemaker [facility] Start: 12-06-2022 End: 12-06-2022 ambulatory [facility] Work Phone: Start: 12-06-2022 End: 12-06-2022 [facility] Start: 02-22-2022 End: 02-22-2022 ambulatory [facility] Work Phone: Start: 02-22-2022 End: 02-22-2022 Patient encounter procedure [facility] Start: 12-19-2021 End: 12-19-2021 Patient encounter procedure [facility] Start: 11-07-2021 End: 11-07-2021 Patient encounter procedure [facility] Procedures Date Procedure Procedure Detail Performing Clinician Start: 09-04-2024 X-ray of chest, PA a nd lateral views Dr. Enedina Medel MD Work Phone: Start: 07-13-2015 H/O: section H/O s ection Ana María Goode APRN.CNP Work Phone: Start: 02-21-2012 Lipid 1996 panel - Serum or Plasma Ana María Goode APRN.CNP Work Phone: Plan of Treatment Date Care Activity Detail Author Start: 11-26-2025 Urine microalbumin profile DTaP,Tdap,Td Vaccine (8 - Td or Tdap) [facility] Start: 09-04-2024 [facility] Start: 09-04-2024 [facility] Start: 06-15-2023 Depression Assessment Depression Ass essment [facility] Start: 02-13-2023 Influenza vaccination Influenza Vacc ine (#1) [facility] Start: 2023 Diabetes Screening Diabetes Screenin g [facility] Start: 2023 Lipid panel Lipid Screening [facility] Start: 2023 Screening for malign ant neoplasm of colon [facility] Start: 2018 Screening for malign ant neoplasm of breast Mammogram Screening [facility] Start: 01-22-2017 Screening for malign ant neoplasm of cervix 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 Start: 01-13-1996 Hepatitis C screening Hepatitis C Sc tomasa [facility] Start: 1980 Covid-19 Vaccine (#1) Covid-19 Vacci ne (#1) [facility] Start: 1980 Hepatitis B Vaccine (1 of 3 - 3-dose series) Hepatitis B Vaccine (1 of 3 - 3-dose series) [facility] Biopsy cervix single/mult/excision of lesion spx CERVICAL BIOPSY OR EXCISION Procedures Routine Cervical polyp Ordered: 08/18/2023 [facility] Work Phone: Comment on above: Ordered: 08/18/2023 Biopsy cervix single/mult/excision of lesion spx CERVICAL BIOPSY OR EXCISION Procedures Routine Cervical polyp Ordered: 08/19/2023 [facility] Work Phone: Comment on above: Ordered: 08/19/2023 HPV W/GENOTYPE THIN PREP HPV W/GENOTYPE THIN PREP Lab Routine Encounter for Papanicolaou smear for cervical cancer screening Special screening examination for human papillomavirus (HPV) Encounter for gynecological examination with abnormal finding 08/18/2023 8:07 AM [facility] Work Phone: End: 09-16-2024 MG Breast Screening NYDIA SCREENING Radiology Routine Screening mammogram for breast cancer Encounter for gynecological examination with abnormal finding 1 Occurrences starting 08/18/2023 until 09/16/2024 [facility] Work Phone: Comment on above: 1 Occurrences starti ng 08/18/2023 until 09/16/2024 PAP TEST PAP TEST Lab Rou ann marie Encounter for Papanicolaou smear for cervical cancer screening Special screening examination for human papillomavirus (HPV) Encounter for gynecological examination with abnormal finding 08/18/2023 8:07 AM [facility] Work Phone: Patient referral [facility] Work Phone: SURGICAL PATHOLOGY SURGICAL PATH OLOGY Lab Routine Cervical polyp 08/19/2023 11:00 AM [facility] Work Phone: [facility] Immunizations Immunization Date Immunization Notes Care Provider Lashanda gama 06-26-2016 influenza virus vacc ine, unspecified formulation Ana María Goode APRN.OPERATIONS INTERN Work Phone: [facility] 11-27-2015 tetanus toxoid, redu ray diphtheria toxoid, and acellular pertussis vaccine, adsorbed Ana María Goode RUBBER TUBING SPLICER.OPERATIONS INTERN Work Phone: [facility] 09-14-2013 tetanus toxoid, redu ray diphtheria toxoid, and acellular pertussis vaccine, adsorbed Ana María Goode RUBBER TUBING SPLICER.OPERATIONS INTERN Work Phone: [facility] 04-14-2013 influenza virus vacc ine, unspecified formulation Ana María Goode RUBBER TUBING SPLICER.OPERATIONS INTERN Work Phone: [facility] 02-08-2013 tetanus toxoid, redu ray diphtheria toxoid, and acellular pertussis vaccine, adsorbed Ana María Goode RUBBER TUBING SPLICER.OPERATIONS INTERN Work Phone: [facility] 11-11-1991 measles, mumps and rubella virus vaccine Ana María Goode RUBBER TUBING SPLICER.OPERATIONS INTERN Work Phone: [facility] 02-25-1980 poliovirus vaccine, inactivated Ana María Goode RUBBER TUBING SPLICER.OPERATIONS INTERN Work Phone: [facility] 02-20-1980 DTP-Haemophilus influenzae type b conjugate vaccine Ana María Goode RUBBER TUBING SPLICER.OPERATIONS INTERN Work Phone: [facility] 05-13-1979 measles, mumps and rubella virus vaccine Ana María Goode RUBBER TUBING SPLICER.OPERATIONS INTERN Work Phone: [facility] 1980 DTP-Haemophilus influenzae type b conjugate vaccine Ana María Goode RUBBER TUBING SPLICER.OPERATIONS INTERN Work Phone: [facility] 1980 DTP-Haemophilus influenzae type b conjugate vaccine Ana María Goode RUBBER TUBING SPLICER.OPERATIONS INTERN Work Phone: [facility] 1980 poliovirus vaccine, inactivated Ana María Goode RUBBER TUBING SPLICER.OPERATIONS INTERN Work Phone: [facility] 1980 DTP-Haemophilus influenzae type b conjugate vaccine Ana María Goode RUBBER TUBING SPLICER.OPERATIONS INTERN Work Phone: [facility] 1980 poliovirus vaccine, inactivated Ana María Goode RUBBER TUBING SPLICER.OPERATIONS INTERN Work Phone: [facility] 1980 DTP-Haemophilus influenzae type b conjugate vaccine Ana María Goode RUBBER TUBING SPLICER.OPERATIONS INTERN Work Phone: [facility] 1980 poliovirus vaccine, inactivated Ana María Goode RUBBER TUBING SPLICER.OPERATIONS INTERN Work Phone: [facility] 1980 DTP-Haemophilus influenzae type b conjugate vaccine Ana María Goode RUBBER TUBING SPLICER.OPERATIONS INTERN Work Phone: [facility] Payers Date Payer Category Payer Self-pay [id number] 2023 Private Health Insurance [facility] CHOICE PLUS [id number] 2023-[facility] [phone] [address] [place] [address] O [id number] 2023 Unknown [id number] 2015 Unknown [id number] Private Health Insurance [id number] Unknown [id number] Unknown [id number] Unknown [id number] Unknown [id number] Unknown [id number] Unknown [id number] Unknown [id number] Unknown [id number] Social History Date Type Detail Facility Start: 08-22-2018 End: 07-31-2022 Tobacco smoking status MEIS Unknown if ever smoked [facility] Start: 1980 Sex Assigned At Female [facility] Start: 08-18-2023 End: 09-04-2024 Tobacco smoking status MEIS Never smoked tobacco [facility] Start: 08-18-2023 Tobacco use and exposure Smokeless tobacco non-user [facility] Start: 08-18-2023 End: 08-19-2023 Alcohol intake Current non-drinker of alcohol (finding) [facility] Start: 08-18-2023 End: 08-19-2023 History of Social function [facility] Start: 08-18-2023 End: 03-06-2024 Tobacco use panel [facility] National Score (1-100), lower number is lower risk 46 [facility] Start: 1980 Sex Assigned At Not on file [facility] Start: 09-04-2024 End: 09-12-2024 Sex Female (finding) [facility] NEGATED: Highlighted rowStart: NINF History of tobacco use Passive smoker [facility] Medical Equipment Procedure Code Equipment Code Equipment Origin al Text Equipment Identifier Dates [employer] [place] FDA Start: 12-19-[address] [employer] [place] FDA Start: 12-19-[address] [employer] [place] FDA Start: 12-19-[address] [employer] [place] FDA Start: 12-19-[address] [employer] [place] FDA Start: 12-19-[address] [employer] [place] FDA Start: 12-19-[address] [employer] [place] FDA Start: 12-19-[address] [employer] [place] FDA Start: 12-19-[address] [employer] [place] FDA Start: 12-19-2014 Mental Status Date Assessment Result Facility 09-04-2024 Cognitive function Level Of Cons ciousness Awake;Alert;Appropriate;Follow s Commands [facility] Work Phone: Clinical Notes 07-17-2015 to 09-04-2024 Telephone Encounter - Kasia Aaron RN - 08/21/2023 2:09 PM ESTTelephone Encounter - Ana María Goode APRN.CNP - 08/21/2023 12:59 PM ESTPatient InstructionsPatient Instructions Note Date & Type Note Facility 09-04-2024 Discharge summary [facility] 09-04-2024 Radiology Diagnostic study note [facility] Imaging Services [address], [place] [address] Chest PA and Lateral MR#: [id number] Acct: [id number] Name: PERFECTO HOLMAN Rep #: [id number] : 1980 F 44 From: Thai Tripp MD PCP: Dr. Enedina Medel MD Status: REG ER Study:Chest PA and Lateral Date of Exam: 09/04/24 Exam# [id number] Ordering Dr: Chanelle Goodwin DO EXAM: CHEST PA AND LATERAL CLINICAL HISTORY: PALPITAIONS COMPARISON: None. TECHNIQUE: PA and lateral views of the chest obtained. FINDINGS: The cardiac silhouette is not enlarged. No evidence of pulmonary edema. No pulmonary parenchymal consolidative opacities. No pneumothorax or significant pleural effusion. No acute osseous abnormality is identified. RAD/Chest PA and Lateral IMPRESSION: No radiographic evidence of acute cardiopulmonary disease. Reading Location: [id number] CC: Dr. Enedina Medel MD; Dr. Seb Goodwin DO ~ Airframe Technical Officer: Signed [facility] 08-21-2023 Miscellaneous Notes Patient notified. KASIA AARON RN Please notify pt - cervical polyp pathology is benign. Ana María Goode APRN.CNP documented in this encounter [facility] 08-19-2023 Note HNO ID: [id number] Author: ANA MARÍA GOODE APRN.ROSS Service: ? Author Type: Nurse Practitioner Type: Progress Notes Filed: 08/19/2023 10:52 Note Text: [employer] offered: Patient declines. Perfecto Holman presents for removal of a cervical polyp noted on exam. She reports no symptoms. UNIVERSAL PROTOCOL / SAFETY CHECKLIST Procedure to be Performed: Cervical Polypectomy Sign In: A Moment of CARE was completed. Personnel directly involved with the procedure wore the appropriate PPE (Personal Protective Equipment). Patient/Surrogate Stated/Verified: PATIENT VERIFIED(optional for EMERGENT procedures): Patient name, Date of , Relevant allergies, and The intended procedure Time Out Communication: Intended patient and procedure match the source documents. Consent documented and matches the intended procedure. No medications required for procedure. Sign Out: SIGN OUT (optional for EMERGENT procedures): All specimen containers correctly labeled. All instruments, equipment, possible retained foreign bodies accounted for. Post-procedure follow-up management communicated and Plan of Care Visit completed when applicable. PROCEDURE: EXTERNAL GENITALIA: Normal in appearance without lesions VAGINA: Normal in appearance without lesions cervical polyp was grasped with ring forceps and removed with gentle twisting motion. Hemostasis at the base of the polyp was secured with pressure. Specimen was labeled and sent to pathology. Patient tolerated procedure well. Plan: Specimens labeled and sent to Pathology. Will notify patient of results in 1-2 weeks. Post-procedure instructions reviewed and written material given to the patient. Ana María Goode APRN.[facility] 08-19-2023 Instructions Juan Victor MA - 08/19/2023 10:25 AM EST YOUR RECOVERY After your polypectomy you may have: Vaginal bleeding Mild cramping Do NOT put anything in the vagina for 1 week This includes: tampons douches and refraining from having sexual intercourse If you have any discomfort, you may take an over the counter pain medication (motrin, advil, ibuprofen, tylenol, etc). If this does not relieve your discomfort, contact the office. It is okay to wear a sanitary pad until the discharge and spotting stops. RISKS Although problems seldom occur with removal of cervical polyps, there can be some complications. You may feel faint during and shortly after the procedure as well as have some bleeding after the procedure. There is also a risk of infection after the procedure. These complications are rare and can be easily treated. You should contact you doctor is you have any of the following: Heavy bleeding (more than your normal period) Bleeding with clots Severe abdominal pain Fever (more than 100.4F) Foul smelling vaginal discharge RESULTS We will have the results of your biopsy in 1-2 weeks. If you do not hear the results of your biopsy after 2 weeks, please contact the office for the results. If you have any additional questions or concerns please do not hesitate to contact the office. documented in this encounter [facility] 08-19-2023 History of Present illness Narrative [employer] offered: Patient declines. Perfecto Holman presents for removal of a cervical polyp noted on exam. She reports no symptoms. UNIVERSAL PROTOCOL / SAFETY CHECKLIST Procedure to be Performed: Cervical Polypectomy Sign In: A Moment of CARE was completed. Personnel directly involved with the procedure wore the appropriate PPE (Personal Protective Equipment). Patient/Surrogate Stated/Verified: PATIENT VERIFIED(optional for EMERGENT procedures): Patient name, Date of , Relevant allergies, and The intended procedure Time Out Communication: Intended patient and procedure match the source documents. Consent documented and matches the intended procedure. No medications required for procedure. Sign Out: SIGN OUT (optional for EMERGENT procedures): All specimen containers correctly labeled. All instruments, equipment, possible retained foreign bodies accounted for. Post-procedure follow-up management communicated and Plan of Care Visit completed when applicable. PROCEDURE: EXTERNAL GENITALIA: Normal in appearance without lesions VAGINA: Normal in appearance without lesions cervical polyp was grasped with ring forceps and removed with gentle twisting motion. Hemostasis at the base of the polyp was secured with pressure. Specimen was labeled and sent to pathology. Patient tolerated procedure well. Plan: Specimens labeled and sent to Pathology. Will notify patient of results in 1-2 weeks. Post-procedure instructions reviewed and written material given to the patient. Ana María Goode APRN.ROSS documented in this encounter [facility] 08-18-2023 Note HNO ID: [id number] Author: ANA MARÍA GOODE APRN.ROSS Service: ? Author Type: Nurse Practitioner Type: Progress Notes Filed: 08/18/2023 09:34 Note Text: [employer] offered: Patient declines. Perfecto is a 43 year old who presents for an annual gynecologic exam with complaints, no menses x 6 months . She has noticed hot flashes and night sweats starting. Having both about twice a month. History of thyroidectomy - taking levothyroxine and last labs were 2 months ago. Menses: LMP 01/18/2023 Previously menses were regular and monthly. Over last summer, menses were very light. Contraception: tubal sterilization HPV vaccine: No Last Pap: 01/23/2012 normal HPV: 01/23/2012 negative History of abnormal pap: No Last mammogram: never Sexually active: Yes History of STDS: None Patient concerns for STD exposure: No. 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 Hypothyroidism, postsurgical 01/28/2011 Infertility, female TRYING TO CONCEIEV 4 YEARS Thyroid nodule 12/04/2010 PAST SURGICAL HISTORY Procedure Laterality Date DELIVERY ONLY 11/24/13 , low transverse DELIVERY ONLY 02/19/16 , low transverse HSG 2011 PAST SURGICAL HISTORY OF wisdom teeth extraction PAST SURGICAL HISTORY OF 12/19/14 Stapedectomy left ear THYROIDECTOMY TOTAL/COMPLETE 01/28/2011 follicular adenoma TUBAL LIGATION, 02/19/16 FAMILY HISTORY Problem Relation Age of Onset Osteoporosis Mother other (brain tumor benign) Mother Cancer Father thyroid Hypertension Father Heart Maternal Grandfather Heart Paternal Grandmother CHF Developmental problem Paternal Grandfather Heart Paternal Grandfather SOCIAL HISTORY Social History Tobacco Use Smoking status: Never Passive exposure: Never Smokeless tobacco: Never Vaping Use Vaping Use: Never used Substance Use Topics Alcohol use: No Drug use: No REVIEW OF SYSTEMS Abdomen: No abdominal pain, nausea, vomiting, diarrhea, or constipation. No bloating, early satiety, indigestion, or increased flatulence. Bladder: No dysuria, gross hematuria, urinary frequency, urinary urgency, or incontinence. Breast: No breast lumps, nipple d/c, overlying skin changes, redness or skin retraction. Allergies and current medication updated:Yes EXAM: BP 90/60 Wt 107 lb 3.2 oz (48.6kg) LMP 01/15/2023 GENERAL: pleasant, female in no apparent distress HEENT: Normocephalic, atraumatic, mucus membranes moist, and no lesions NECK: Supple, full range of motion, no adenopathy DERMATOLOGY: Normal, without lesions, non-icteric, and non-hirsute BREAST: soft, non-tender, symmetric, no dominant mass, normal nipple-areolar complex, no lymphadenopathy, and no nipple discharge CHEST: Normal inspiratory effort ABDOMEN: soft, non-tender, and no masses PELVIC: external genitalia normal, normal Bartholin's glands, urethra, Pinson's glands, no vulvar lesions, good vaginal support, physiologic discharge present, normal appearing perineal body and perianal region +Cervical polyp BIMANUAL: uterus normal size, shape and consistency, no adnexal masses, and non-tender RECTOVAGINAL: deferred. NEURO: alert and oriented x3,exam grossly non-focal EXTREMITIES: normal ASSESSMENT/PLAN: 1) Health maintenance: Pap done with HPV. Mammogram ordered - has never had one and is unsure if she will schedule Nutrition, exercise and routine health maintenance exams reviewed. Calcium/Vitamin D supplementation information provided. 2. Amenorrhea - ICD9: 626.0, ICD10: N91.2 - LMP 01/15/2023 following a few months with spotting only - beginning vasomotor symptoms - Given written information on menopause 3. Cervical polyp - ICD9: 622.7, ICD10: N84.1 - asymptomatic - assisted in scheduling polypectomy - CERVICAL BIOPSY OR EXCISION 4) Contraception: tubal sterilization. Contraceptive options reviewed and information provided. 5) STD screening: Declined STD check. 6) Follow up one year and at cervical polypectomy Ana María Goode APRN.ROSS [facility] 08-18-2023 Instructions Ana María Goode APRN.ROSS - 08/18/2023 7:33 AM EST Menopause Symptoms Not all women experiences menopause in the same way. For some, menopause can bring on an array of uncomfortable symptoms. Others may experience few if any discomforts. This information has been prepared to help you manage the most common changes associated with the midlife transition. RELIEVING HOT FLASHES * Identify and avoid your hot flash triggers. Common triggers may include stress, caffeine, alcohol, spicy foods, tight clothing, heat and cigarette smoke. * Keep the bedroom cool. Use fans during the day. Wear light layers of clothes with natural fibers. * Try deep, slow abdominal paced breathing (6 to 8 breaths per minute). Practice deep breathing for 15 minutes in the morning, 15 minutes in the evening and at the onset of hot flashes. * Exercise daily. Walking, swimming, dancing and bicycling with helmet are good choices along with yoga. * Add soy protein in the form of food (40-60 mg) to your diet daily in place of animal protein. Promensil and isoflavone tablets have NOT been shown to significantly help menopausal symptoms * Black cohosh (in the form of Remifemin) can be used for hot flashes and has been approved by [place] for only 6 months of use, however has NOT been well studied in the [place] for alf effects and THERE HAVE BEEN REPORTS OF LIVER TOXICITY WITH BLACK COHOSH USE. (Avoid kava kava, valerian root and beware that most herbal products are NOT regulated in the [place] and some have been associated with liver toxicity) NOTE: HORMONE THERAPY (HT) is the MOST EFFECTIVE treatment and the only FDA approved treatment for menopausal symptoms. Any form of hormones, including 'bioidentical' hormones have risks as well as benefits. * Antidepressants like Effexor (venlaflaxine) a NSRI or Pristiq (desvenlafaxine) another agent, Neurontin (gabapentin) may help block hot flashes and all have risks and benefits like any prescription or off the shelf medicine. * Use of Bellergal is discouraged as it contains an addictive barbiturate. RELIEVING INSOMNIA * Keep the bedroom cool to prevent night sweats. Special chill pillows that are cool are available. * Avoid using sleeping pills. * Exercise daily but not right before bedtime. * Avoid caffeine and alcohol at night. * Take a warm shower at bedtime. COPING WITH MOOD SWINGS, FEARS AND DEPRESSION * Find a self-calming skill to practice, such as yoga, meditation or slow deep breathing. * Avoid tranquilizers, if possible, however prescription anti-depressants can be very effective. * Engage in a creative outlet that fosters a sense of achievement. * Stay connected with your family and community; nurture your friendships. RELIEVING PAINFUL INTERCOURSE * Try using a vaginal water-based moisturizing lotion 3 times a week (like Replens or SILK-E) or lubricant during intercourse like KY jelly or Astroglide. *Local estrogen treatments for the vagina/bladder are available as a cream, tablet or vaginal ring. HELPFUL WEB SITES www.menopause.org www.[facility].org/womensheal th Calcium and Vitamin D Supplementation (from the National Institutes of Health Office of Dietary Supplements 2011) Calcium 1200 mg daily - 600 mg twice a day if taking supplement and Vit D 800-1000 IU daily Calcium is required by the body for blood vessel, muscle, hormone and nerve functioning. Most of the body's calcium is stored in the bones and teeth where it supports structure and function. Bone is continuously broken down and reformed. When bone breakdown exceeds formation, especially in postmenopausal women, bone loss can increase the risk of osteoporosis and fractures. In addition to low calcium intake, women who smoke, have a family history of osteoporosis, are thin, or , or who take certain medications such as cancer chemotherapy, seizure mediations and steroids are at increased risk of osteoporosis. The calcium requirements in women change with age. The National Institutes of Health (NIH) recommends: 1000mg elemental calcium for premenopausal women age 19-50 1200mg elemental calcium for postmenopausal women and all women over 50 Milk, yogurt, and cheese are rich natural sources of calcium and are the major food contributors in the [place]. For example, 8oz of milk (whole, lowfat or skim) contains about 300mg calcium, 8oz of yogurt contains 415mg. Nondairy sources include salmon and sardines and vegetables, such as Hebrew cabbage, kale, and broccoli. Foods fortified with calcium include many fruit juices, tofu and cereals. For more food calcium content information, visit http://ods.od.nih.gov/factsheets/c alcium. Calcium supplements come in several different forms. Remember that the recommendations are for millgrams (mg) of elemental calcium which may be less than the total weight of the supplement. The amount of elemental calcium is required to be printed on the label. Calcium carbonate is the least expensive form. It must be taken on a full stomach to be properly absorbed. Some patients may experience gas or constipation. Calcium phosphate and calcium citrate may be taken either with or without food and tend to have less side effects but are generally more expensive. Because of its ability to neutralize stomach acid, calcium carbonate is found in some [id number] antacid products, such as Tums and Rolaids . Depending on its strength, each chewable pill or softchew provides 200 to 400 mg of elemental calcium. The percentage of calcium absorbed depends on the total amount of elemental calcium consumed at one time. Absorption is highest in doses <500mg. So a woman who takes 1,000mg/day of calcium from supplements should split the dose and take 500mg at two separate times during the day. Too much calcium can cause kidney stones, constipation, difficulty absorbing other nutrients and calcium buildup in blood vessels. Women under 50 should not exceed 2500mg/day (2000mg/day for women over 50) of calcium from food and supplements. Excessive alcohol and caffeine intake can inhibit absorption of calcium. Calcium can reduce the absorption of some medications if taken at the same time of day (bisphosphonates, thyroid medication, Phenytoin and other seizure medications, some antibiotics and iron supplements). Vitamin D promotes calcium absorption in the gut and maintains adequate blood levels of calcium and phosphate for normal bone growth and bone remodeling. Vitamin D also helps regulate cell growth as well as nerve, muscle and immune system function. Vitamin D is produced in the skin as a result of ultraviolet sunlight rays and must be altered in the liver and kidney to become its active form. Recommended intake according to the National Institutes of Health is 600 International Units (IU) for girls and women ages 1-70 and 800 IU for women over 70. Very few foods in nature contain vitamin D. The flesh of fatty fish (such as salmon, tuna, and mackerel) and fish liver oils are among the best sources. Small amounts of vitamin D are found in beef liver, cheese, mushrooms and egg yolks. Most people meet at least some of their vitamin D needs through exposure to sunlight. Season, time of day, length of day, cloud cover, smog, skin melanin content, and sunscreen are among the factors that affect UV radiation exposure and vitamin D synthesis. Despite the importance of the sun for vitamin D synthesis, it is prudent to limit exposure of skin to sunlight and avoid tanning beds. UV radiation is a carcinogen responsible for most of the estimated 1.5 million skin cancers that occur annually in the [place]. Lifetime cumulative UV damage to skin is also responsible for some age-associated dryness and other cosmetic changes. In supplements and fortified foods, vitamin D is available in two forms, D2 (ergocalciferol) and D3 (cholecalciferol). The two are equivalent at normal supplement doses. For women who require high supplement doses because of vitamin D deficiency, D3 may work better to raise blood levels. Some medications can prevent proper absorption of Vitamin D. These include laxatives, corticosteroids like prednisone, the seizure drugs phenobarbital and phenytoin, the weight-loss drug orlistat ( Xenical and AlliTM) and the cholesterol-lowering drug cholestyramine (Questran , LoCholest , and Prevalite ). Talk to your doctor about adjusting your recommended daily vitamin D dosage if you take these medications. You should not exceed 4000 mg of vitamin D supplementation daily unless specifically prescribed by your doctor. documented in this encounter [facility] 08-18-2023 History of Present illness Narrative [employer] offered: Patient declines. Perfecto is a 43 year old who presents for an annual gynecologic exam with complaints, no menses x 6 months . She has noticed hot flashes and night sweats starting. Having both about twice a month. History of thyroidectomy - taking levothyroxine and last labs were 2 months ago. Menses: LMP 01/18/2023 Previously menses were regular and monthly. Over last summer, menses were very light. Contraception: tubal sterilization HPV vaccine: No Last Pap: 01/23/2012 normal HPV: 01/23/2012 negative History of abnormal pap: No Last mammogram: never Sexually active: Yes History of STDS: None Patient concerns for STD exposure: No. 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 Hypothyroidism, postsurgical 01/28/2011 Infertility, female TRYING TO CONCEIEV 4 YEARS Thyroid nodule 12/04/2010 PAST SURGICAL HISTORY Procedure Laterality Date DELIVERY ONLY 11/24/13 , low transverse DELIVERY ONLY 02/19/16 , low transverse HSG 2011 PAST SURGICAL HISTORY OF wisdom teeth extraction PAST SURGICAL HISTORY OF 12/19/14 Stapedectomy left ear THYROIDECTOMY TOTAL/COMPLETE 01/28/2011 follicular adenoma TUBAL LIGATION, 02/19/16 FAMILY HISTORY Problem Relation Age of Onset Osteoporosis Mother other (brain tumor benign) Mother Cancer Father thyroid Hypertension Father Heart Maternal Grandfather Heart Paternal Grandmother CHF Developmental problem Paternal Grandfather Heart Paternal Grandfather SOCIAL HISTORY Social History Tobacco Use Smoking status: Never Passive exposure: Never Smokeless tobacco: Never Vaping Use Vaping Use: Never used Substance Use Topics Alcohol use: No Drug use: No REVIEW OF SYSTEMS Abdomen: No abdominal pain, nausea, vomiting, diarrhea, or constipation. No bloating, early satiety, indigestion, or increased flatulence. Bladder: No dysuria, gross hematuria, urinary frequency, urinary urgency, or incontinence. Breast: No breast lumps, nipple d/c, overlying skin changes, redness or skin retraction. Allergies and current medication updated:Yes EXAM: BP 90/60 Wt 107 lb 3.2 oz (48.6kg) LMP 01/15/2023 GENERAL: pleasant, female in no apparent distress HEENT: Normocephalic, atraumatic, mucus membranes moist, and no lesions NECK: Supple, full range of motion, no adenopathy DERMATOLOGY: Normal, without lesions, non-icteric, and non-hirsute BREAST: soft, non-tender, symmetric, no dominant mass, normal nipple-areolar complex, no lymphadenopathy, and no nipple discharge CHEST: Normal inspiratory effort ABDOMEN: soft, non-tender, and no masses PELVIC: external genitalia normal, normal Bartholin's glands, urethra, Pinson's glands, no vulvar lesions, good vaginal support, physiologic discharge present, normal appearing perineal body and perianal region +Cervical polyp BIMANUAL: uterus normal size, shape and consistency, no adnexal masses, and non-tender RECTOVAGINAL: deferred. NEURO: alert and oriented x3,exam grossly non-focal EXTREMITIES: normal ASSESSMENT/PLAN: 1) Health maintenance: Pap done with HPV. Mammogram ordered - has never had one and is unsure if she will schedule Nutrition, exercise and routine health maintenance exams reviewed. Calcium/Vitamin D supplementation information provided. 2. Amenorrhea - ICD9: 626.0, ICD10: N91.2 - LMP 01/15/2023 following a few months with spotting only - beginning vasomotor symptoms - Given written information on menopause 3. Cervical polyp - ICD9: 622.7, ICD10: N84.1 - asymptomatic - assisted in scheduling polypectomy - CERVICAL BIOPSY OR EXCISION 4) Contraception: tubal sterilization. Contraceptive options reviewed and information provided. 5) STD screening: Declined STD check. 6) Follow up one year and at cervical polypectomy Ana María Goode APRN.OPERATIONS INTERN documented in this encounter [facility] 07-17-2015 History of Past i llness Narrative Problem Noted Date Diagnosed Date Resolved Date Hypothyroidism affecting 07/17/2015 06/26/2016 Supervision of high risk pre gnancy in third trimester 07/13/2015 06/26/2016 Overview: AMA Hypothyroidism complicating 06/10/2013 12/08/2013 Advanced maternal age (AMA) in 04/14/2013 12/08/2013 Overview: 04/14/2013 She is 33 years old. Advanced Maternal age discussed. Pt refused handouts on Genetic Amniocentesis and [facility]. [facility] handout on Quad Marker Screen and Early Screening In given and discussed. Level II Ultrasound and Dr. Hassan's services discussed. She and her have been attempting for about 4 years. She has seen Dr. Mcnamara in [place] in the past. Patient conceived on her own without any fertility medication. TKRN Family history of defects 04/14/2013 12/08/2013 Overview: 04/14/2013Patient's niece was born with cleft palate. TKRN Thyroid nodule 12/04/2010 06/26/2016 documented as of this encounter (statuses as of 08/18/2023) [facility] History of Past illness Narrative* Problem Noted Date Diagnosed Date Resolved Date Hypothyroidism affecting 07/17/2015 06/26/2016 Supervision of high risk pre gnancy in third trimester 07/13/2015 06/26/2016 Overview: AMA Hypothyroidism complicating 06/10/2013 12/08/2013 Advanced maternal age (AMA) in 04/14/2013 12/08/2013 Overview: 04/14/2013 She is 33 years old. Advanced Maternal age discussed. Pt refused handouts on Genetic Amniocentesis and [facility]. [facility] handout on Quad Marker Screen and Early Screening In given and discussed. Level II Ultrasound and Dr. Hassan's services discussed. She and her have been attempting for about 4 years. She has seen Dr. Mcnamara in [place] in the past. Patient conceived on her own without any fertility medication. TKRN Family history of defects 04/14/2013 12/08/2013 Overview: 04/14/2013Patient's niece was born with cleft palate. TKRN Thyroid nodule 12/04/2010 06/26/2016 documented as of this encounter (statuses as of 08/19/2023) [facility] History of Past illness Narrative* Problem Noted Date Diagnosed Date Resolved Date Hypothyroidism affecting 07/17/2015 06/26/2016 Supervision of high risk pre gnancy in third trimester 07/13/2015 06/26/2016 Overview: AMA Hypothyroidism complicating 06/10/2013 12/08/2013 Advanced maternal age (AMA) in 04/14/2013 12/08/2013 Overview: 04/14/2013 She is 33 years old. Advanced Maternal age discussed. Pt refused handouts on Genetic Amniocentesis and [facility]. [facility] handout on Quad Marker Screen and Early Screening In given and discussed. Level II Ultrasound and Dr. Hassan's services discussed. She and her have been attempting for about 4 years. She has seen Dr. Mcnamara in [place] in the past. Patient conceived on her own without any fertility medication. TKRN Family history of defects 04/14/2013 12/08/2013 Overview: 04/14/2013Patient's niece was born with cleft palate. TKRN Thyroid nodule 12/04/2010 06/26/2016 documented as of this encounter (statuses as of 08/21/2023) [facility] Note Date/Time September 04, 2024 12: 37pm [facility] Medical Records Department [address] [place] [address] Emergency Department Summary 09/04/24 MR#: [id number] Acct: [id number] Name: PERFECTO HOLMAN Rep #:[id number] : 1980 44 From: Seb Goodwin DO PCP: Dr. Enedina Medel MD Status:REG ER Location: ED HPI History of Present Illness Chief Complaint: Palpitations Narrative Narrative: Patient is a 44-year-old female with past medical history of hypothyroidism on levothyroxine who presents to the emergency department with a chief complaint ofelevated heart rate for the last 2 days. States that yesterday she did notice that while her heart was racing periodically she would feel lightheaded. She states that she had her thyroid checked yesterday as there had been some medication adjustments for her thyroid. Patient denies any recent travel history denies any history of blood clots. Patient denies any recent sick contacts. 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 Home Medications ?Medication ?Instructions ?Recorded ?Last Taken ?Type levothyroxine 100 mcg tablet 50 mcg PO QMONTH 12/04/14 02/14/16 History levothyroxine 75 mcg tablet 75 mcg PO DAILY 07/31/22 U nknown History Allergy/AdvReac Type Severity Reaction Status Date / Time No Known Allergies Allergy Verified 09/04/24 08:42 Surgical History Hx of section Social History Smoking Status: Never smoker ROS ROS ED ROS Narrative Constitutional: Denies fevers, chills, headaches, dizziness Eyes: Denies changes double vision blurry vision Cardiovascular: Denies chest pain or palpitations Respiratory: Complains of mild shortness of breath denies cough Abdomen: Denies abdominal pain nausea vomit diarrhea : Denies any urinary symptoms Neurological: Denies numbness, weakness, tingling Musculoskeletal: Denies back pain Skin: Denies rashes or lesions EXAM Physical Exam Narrative Exam Narrative: General: Patient lying in bed rest comfortably did not appear to be in acute distress Head: Atraumatic, normocephalic Eyes: PERRL bilaterally, EOMI bilateral, no conjunctival injection noted Neck: Soft, supple, trachea midline Cardiovascular: Patient tachycardic with a regular rhythm no murmurs gallops rubs noted respiratory: clear to auscultation bilaterally Abdomen: Soft, nondistended, nontender to palpation Extremities: +5/5 strength noted in the bilateral upper and lower extremity, radial pulse +2/4 in the bilateral extremities, no pedal edema exam Neurological: Patient follow commands knew that she was at [facility] 2024 Skin: Warm, dry, intact Const Vital Signs: 09/04/24 08:39 09/04/24 10:39 09/04/24 12:00 Temperature 97.9 F Temperature Source Oral Pulse Rate 114 H 101 H 92 Respiratory Rate 20 H 15 19 H Blood Pressure 127/87 H 107/76 110/75 Blood Pressure Mean 100 86 86 Pulse Ox 99 100 98 Oxygen Delivery Method Room Air Room Air Room Air 09/04/24 12:33 Temperature 98.2 F Temperature Source Pulse Rate 85 Respiratory Rate 18 Blood Pressure 113/96 H Blood Pressure Mean 101 Pulse Ox 98 Oxygen Delivery Method MDM MDM MDM Narrative Medical decision making narrative: Patient is a 44-year-old female who presented to the emergency department with achief complaint of palpitations. On the differential diagnose includes Melamin to hyperthyroidism, ACS, pneumonia, pneumothorax, PE. Once workup is obtained reviewed she will be reevaluated. Patient CBC reviewed and showed no evidence leukocytosis with blood count normalat 4, he was 13.4, platelet count was noted be 191. Patient sodium normal 142, potassium normal 3.9, creatinine was 1.04. Patient's troponin was less than 6 with a delta troponin of less than 6. Patient's EKG showed sinus tachycardia the rate of 106 bpm with a HI interval 128 QTc of normal at 441. Patient's TSH blood work obtained from the other day was reviewed and was normal at 0.66 with a normal free T4 of 1.40. Patient chest x-ray reviewed by myself by radiology showed no acute cardiopulmonary processes. Given the patient's symptoms and normal workup thus far will add on D-dimer. D- dimer was normal at less than 0.27. Reevaluation patient her heart rate has normalized she is feeling better she would like to go home at this point time. She is advised to stay hydrated follow-up with your doctor in outpatient setting to discuss the potential need for a Holter monitor. We do not have any here in the emergency department todayto prescribe her 1. She is vies return with worsening symptoms or concerns she is agreeable this plan all question concerns answered at bedside. Lab Data Labs: Laboratory Results - last 24 hr 09/04/24 09/04/24 09/04/24 09:11 10:01 11:18 WBC 4.0 L RBC 4.27 Hgb 13.4 Hct 39.9 MCV 93.4 MCH 31.4 MCHC 33.6 RDW Std Deviation 45.6 H RDW Coeff of Marilyn 13.2 Plt Count 191 MPV 10.8 Immature Gran % (Auto) 0.300 Neut % (Auto) 64.9 Lymph % (Auto) 24.2 Vigo % (Auto) 7.3 Eos % (Auto) 2.3 Baso % (Auto) 1.0 Absolute Neuts (auto) 2.6 Absolute Lymphs (auto) 0.96 Nucleated RBC % 0 D-Dimer Quant (PE/DVT) < 0.27 L Sodium 142 Potassium 3.9 Chloride 105 Carbon Dioxide 23.9 Anion Gap 13 BUN 19 Creatinine 1.04 Estim Creat Clear Calc 51.11 Est GFR (MDRD) Non-Af 67 BUN/Creatinine Ratio 18.6 Glucose 128 H Calcium 9.4 Troponin T High Sens < 6 Troponin T Hi Sens 2 Hr < 6 Radiography Diagnostic Testing: Clinical Impression(s) from Imaging Studies Chest X-Ray 09/04/24 09:30 IMPRESSION: No radiographic evidence of acute cardiopulmonary disease. Reading Location: [address] Discharge Plan Triage Chief Complaint: Palpitations ED Provider: Seb Goodwin Dx/Rx/DC Orders Clinical Impression: Palpitations Prescriptions: No Action levothyroxine 100 MCG tablet 50 mcg PO QMONTH levothyroxine 75 mcg tablet 75 mcg PO DAILY Patient Comments: TAKE 1 TABLET BY MOUTH EVERY DAY OF THE MONTH EXCEPT 1 DAY Primary Care Provider: Enedina Medel Referrals: Enedina Medel MD [Primary Care Provider] - Activity Restrictions/Additional Instructions: Follow-up with your doctor in outpatient setting. Discussed with them about wearing a Holter monitor. Return with worsening symptoms or any concerns. Yourthyroid test were normal. Your chest x-ray looked normal and your rest your blood work was normal today. Print Language: Tanzanian Disposition Disposition: Home, Self Care What to do if you have Problems For any increased pain, shortness of breath, bleeding, nausea or vomiting, chestpain, or any unexpected problems, contact your Primary Care Provider. Call [facility] ([phone]) or report to the closest Emergency Room. Call 911 if necessary. 09/04/24 1237 <Electronically signed by Seb Goodwin DO> Cosigner Signature (if applicable): CC: Dr. Enedina Medel MD ~ Signed [facility] Work Phone: Evaluation noteNo assessment information available [facility] Work Phone: Evaluation note* Diagnosis Encounter for gynecological examination with abnormal finding- Primary Routine gynecological examination Amenorrhea Absence of menstruation Cervical polyp Mucous polyp of cervix Encounter for Papanicolaou smear for cervical cancer screening Special screening examination for human papillomavirus (HPV) Screening mammogram for breast cancer documented [facility]* Diagnosis Cervical polyp- Primary Mucous polyp of cervix [facility] Additional Instructions Follow-up with your doctor in outpatient setting. Discussed with them about wearing a Holter monitor. Return with worsening symptoms or any concerns. Your thyroid test were normal. Your chest x-ray looked normal and your rest your blood work was normal today.[facility] Work Phone: Reason for referral (narrative)* Diagnostic Procedure Only (Routine) - Pending Review Specialty Diagnoses / Procedures Referred By Grant t Referred To Contact [facility] Diagnoses Screening mammogram for breast cancer Encounter for gynecological examination with abnormal finding Procedures NYDIA SCREENING SCREENING MAMMOGRAPHY BI 2-VIEW BREAST INC Ana María Eldridge, IBRAHIMA.OPERATIONS INTERN [address] [place] [address] [facility] [address] [address] Referral ID Status Reason Start Date Expiration Date Visits Requested Visits Authorized [id number] Pending Review Auto-Generat ed Referral 08/18/2023 09/16/2024 1 1 [facility] for referral (narrative)No reason for referral information availableWMercy Hospital Work Phone: Advance Directives No Advanced Directives Records Found Advance Directive Response Recorded Date/ Time Advance Directives No July 02, 2018 12:17pm Living Will Yes August 22, 2018 8:52pm Power of Screener Perfumer Yes August 22 8:52pm Advance Directive Response Recorded Date/ Time Advance Directives No July 02, 2018 12:17pm Living Will No July 31, 023 11:24pm Power of Screener Perfumer No July 31, 2022 11:24pm Advance Directive Response Recorded Date/ Time Advance Directives No July 02, 2018 11:17am Living Will No July 31, 2 023 10:24pm Power of Screener Perfumer No July 31, 2022 10:24pm Advance Directive Response Recorded Date/ Time Living Will No September 04, 2024 8:52am Do you have a Healthcare Power of Screener Perfumer? No September 04, 2024 8:52am Advance Directives No July 02, 2018 12:17pm Chief Complaint and Reason for Visit Chief Complaint THYROID Chief Complaint Admit Date S/O EVERY 3 MONTHS September 03, 2024 8:1 7am ELEVATED HEART RATE September 04, 2024 8:3 8am Summary Purpose Family History No Family History Records FoundNo Family History Records Found Additional Source Comments Goals (unrecognized section and content) Goals may be documented in a n alternate sectionGoals may be documented in an alternate sectionGoals may be documented in an alternate sectionGoals may be documented in an alternate sectionGoals may be documented in an alternate sectionGoals may be documented in an alternate sectionGoals may be documented in an alternate sectionGoals may be documented in an alternate sectionGoals may be documented in an alternate section Care Teams (unrecognized sec tion and content) Team Status: Active Member Role Status Dates Dr. Enedina Medel MD Primary Care Provider Active Team Status: Inactive Member Role Status Dates Dr. Enedina Medel MD Primary Care Provider Active Start: September 03, 2024 End: September 03, 2024 Dr. Enedina Medel MD Attending Provider Active Start: September 03, 2024 End: September 03, 2024 Dr. Enedina Medel MD Referring Provider Active Start: September 03, 2024 End: September 03, 2024 Team Status: Inactive Member Role Status Dates Dr. Enedina Medel MD Primary Care Provider Active Start: September 04, 2024 End: September 04, 2024 Dr. Seb Goodwin DO Attending Provider Active Start: September 04, 2024 End: September 04, 2024 Dr. Seb Goodwin DO Emergency Provider Active Start: September 04, 2024 End: September 04, 2024 Team Status: Active Member Role Status Dates Dr. Enedina Medel MD Family Provider Active Dr. Enedina Medel MD Primary Care Provider Active Team Status: Inactive Member Role Status Dates Dr. Enedina Medel MD Primary Care Prov ider, Attending Provider, Referring Provider Active Ash Conveyor Operator Relationship Specialty Start Date End Date Enedina Medel MD [address] [place] [address] PCP - General Family Medicine 10/20/19 Ash Conveyor Operator Relationship Specialty Start Date End Date Enedina Medel MD [address] [place] [address] PCP - General Family Medicine 10/20/19 Ash Conveyor Operator Relationship Specialty Start Date End Date Enedina Medel MD [address] [place], [place] [id number] PCP - General Family Medicine 10/20/19 Team Status: Active Member Role Status Dates Dr. Enedina Medel MD Primary Care Provider Active Start: September 03, 2024 Dr. Enedina Medel MD Attending Provider Active Start: September 03, 2024 Dr. Enedina Medel MD Referring Provider Active Start: September 03, 2024 Team Status: Inactive Member Role Status Dates Dr. Enedina Medel MD Primary Care Provider Active Start: September 04, 2024 End: September 04, 2024 Dr. Seb Goodwin DO Emergency Provider Active Start: September 04, 2024 End: September 04, 2024 Source Comments (unrecognize d section and content) In the event this informatio n is protected by the Federal Confidentiality of Alcohol and Drug Abuse Patient Records regulations: The Federal rules restrict any use of the information to criminally investigate or prosecute any alcohol or drug abuse patient.[facility] the event this information is protected by the Federal Confidentiality of Alcohol and Drug Abuse Patient Records regulations: The Federal rules restrict any use of the information to criminally investigate or prosecute any alcohol or drug abuse patient.[facility] the event this information is protected by the Federal Confidentiality of Alcohol and Drug Abuse Patient Records regulations: The Federal rules restrict any use of the information to criminally investigate or prosecute any alcohol or drug abuse patient.[facility] Reason for Visit (unrecogniz ed section and content) Reason Comments Discussion Reason Comments cervical polypectomy Reason Comments Results INFORMATION SOURCE (unrecogn ized section and content) DATE CREATED AUTHOR 09/02/2023 [facility] DATE CREATED AUTHOR AUTHOR'S HALEIGH THOMAS 11/30/2024 [facility] FOR RECORDS PERTAINING TO PATIENTS WHO ARE [...] BE BASED ON THE PRIMARY CLINICAL RECORDS. [facility] [employer] provides no warranty or guarantee of the accuracy or completeness of information in this document.
== END | disposition home or self-care (01) ==
LOC: BFHLAB 11:55
PROVIDERS: PCP Family Medicine; Referring Provider Family Medicine; Visit Provider Family Medicine
DX: E89.0 Postprocedural hypothyroidism (principal)
CPT/HCPCS: 36415; 84439; 84443

== ENCOUNTER → 2025-03-18 | Outpatient (CLI) | payer OTHER, SELFPAY ==
--- OUTSIDE RECORDS SUMMARY | 2025-03-18 08:22 | XMS RPT_ITS | CCD ---
Author Organization [facility] Care Team Providers Care Derrick Boat Leverman Name Role Phone Enedina Medel MD Primary Care Provider ENEDINA MEDEL Primary Care Unavailable ANA MARÍA GOODE Attending Unavailable ENEDINA MEDEL Primary Care Unavailable ANA MARÍA GOODE Attending Unavailable Dr. Enedina Medel MD Primary Care Provider Dr. Enedina Medel MD Attending Provider [phone] Enedina Medel MD Referring Provider [phone] Seb Goodwin DO Emergency Provider Dr. Seb Goodwin DO Attending Provider Enedina Medel Primary Care Unavailable Enedina Medel [...] Sat and Sun. Take 100 mcg daily Mon-Thu. Take on empty stomach. For Thyroid 24 [...] above: Take 1 tablet by beverly th once daily. Thu- Thu. Take 88 [...] Start: 08-17-2023 lamoTRIgine (LAMICTAL) 200 mg tablet Nhjoamrg-Pe-Kce-Fe -FA ( VITAMIN) ORAL Tab (1 source) Start: 06-10-2010 End: 08-18-2023 take 1 tablet by mouth once daily Bsfyrxjn-Hh-Pyq-Fe -FA ( VITAMIN) ORAL Tab Take one(1) [...] mg by mouth daily at bedtime. Problems Active Problems Problem Classification Problem Date Documented Date Episodic/Chronic Complications of surgical procedures or medical care (4 sources) Postoperative hypothyroidism; Translations: [Postprocedural hypothyroidism] Onset: 02-11-2011 06-26-2016 Chronic Immunizations and screening for infectious disease (3 sources) Patient encounter status; Translations: [Encounter for screening for human papillomavirus (HPV)] 08-18-2023 Episodic Menstrual disorders (1 source) Amenorrhea; Translations: [Amenorrhea, unspecified] 08-18-2023 Chronic Mood disorders (7 sources) Manic bipolar I disorder; Translations: [Bipolar disorder, current episode manic without psychotic features, unspecified] 08-09-2022 Chronic Other female genital disorders (4 sources) Polyp of cervix; Translations: [Polyp of cervix uteri] Onset: 08-19-2023 08-18-2023 Episodic Thyroid disorders (7 sources) Hypothyroidism; Translations: [Hypothyroidism, unspecified] 08-09-2022 Chronic Unclassified (3 sources) Uses contraception; Translations: [ control] Onset: 11-07-2015 06-10-2021 Past or Other Problems Problem Classification Problem Date Documented Da te Episodic/Chronic Cardiac dysrhythmias (4 sources) Palpitations; Translations: [Palpitations] Onset: 09-09-2024 09-04-2024 Episodic Results Test Name Value Interpretation Reference Range Facility T4 Free Directon 12-07-2024 T4 FREE DIRECT 1.40 ng/dL Normal 0.76-1.46 [facility] Comment on above: Performed By: #### L 501.9520, L506.0400 ####[facility] [address] [place], [place], [address] T4 freeOrdered By: Enedina rolle on 12-07-2024 Free T4 [Mass/Vol] 1.40 ng/dL 0.76-1.46 [facility] TSH DL <= 0.005 mIU/L QnOrde red By: Enedina Medel on 12-07-2024 TSH Qn 0.603 uIU/mL 0.300-4.200 [facility] Thyroid Stim Hormone (TSH)on 12-07-2024 TSH 0.603 uIU/mL Normal 0.300-4.200 [facility] Comment on above: Performed By: #### L 501.9520, L506.0400 ####[facility] [address] [place], [address] 12 Lead EKGon 09-04-2024 12 Lead EKG [facility] Cardiovascular Services [address] [place] [address] 12 Lead EKG 09/04/24 0912 MR#: [id number] Acct: [id number] Name: PERFECTO HOLMAN Rep #: [id number] : 1980 44 From: Jaya Lewis MD [...] Sinus tachycardia Otherwise normal ECG Confirmed by JAYA LEWIS MD ([id number]), telegraph editor JUAN HOWELL ([id number]) on 09/05/2024 8:19:53 AM Referred By: ADRYAN Confirmed By: JAYA LEWIS MD 09/05/24 0819 Date Jaya Lewis MD CC: Dr. Enedina Medel MD; Dr. Seb Goodwin DO Signed Normal [facility] Absolute lymphocyte countOrd ered By: Seb Goodwin on 09-04-2024 Lymphocytes Auto (Unsp spec) [#/Vol] 0.96 10*3/uL 0.83-4.51 [facility] Absolute neutrophil countOrd ered By: Seb Goodwin on 09-04-2024 Neutrophils (Bld) [#/Vol] 2.6 10*3/uL 2.0-7.7 [facility] Anion gap in Serum or Plasma Ordered By: Seb Goodwin on 09-04-2024 Anion gap [Moles/Vol] 13 mmol/L 5- [facility] Automated lymphocyte count a s percentage of total leukocytesOrdered By: Seb Goodwin on 09-04-2024 Lymphocytes/100 WBC Auto (Unsp spec) 24.2 % [facility] BUN/creatinine ratioOrdered By: Seb Goodwin on 09-04-2024 Urea nitrogen/Creatinine [Mass ratio] 18.6 mg/mg - [facility] Basic Metabolic Profile (BMP )on 09-04-2024 BUN/CRE 18.6 RATIO Normal - [facility] Comment on above: Performed By: #### L 500.2500, L100.0100, L501.4021 ####[facility] [address] [place], [address] Calcium [Mass/Vol] 9.4 mg/dL Normal 7.6-11.0 [facility] Comment on above: Performed By: #### L 500.2500, L100.0100, L501.4021 ####[facility] [address] [place], [address] Chloride [Moles/Vol] 105 mmol/L Normal 98-108 [facility] Comment on above: Performed By: #### L 500.2500, L100.0100, L501.4021 ####[facility] [address] [place], [address] CO2 [Moles/Vol] 23.9 mmol/L Normal 21.0-32.0 [facility] Comment on above: Performed By: #### L 500.2500, L100.0100, L501.4021 ####[facility] [address] [place], [address] Creatinine [Mass/Vol] 1.04 mg/dL Normal 0.70-1.20 [facility] Comment on above: Performed By: #### L 500.2500, L100.0100, L501.4021 ####[facility] [address] [place], [address] ECRCL 51.11 ml/min Normal 50-250 [facility] Comment on above: Performed By: #### L 500.2500, L100.0100, L501.4021 ####[facility] [address] [place], [address] GAP 13 Normal 5-15 [facility] Comment on above: Performed By: #### L 500.2500, L100.0100, L501.4021 ####[facility] [address] [place], [address] GFR/1.73 sq M.predicted among non-blacks MDRD (S/P/Bld) [Vol rate/Area] 67 mL/min/{1.73_m2} Normal >60 [facility] Comment on above: Result Comment: mL/m in/1.73m2 CKD-EPI Creatinine Equation (2020) Performed By: #### L 500.2500, L100.0100, L501.4021 ####[facility] [address] [place], [address] Glucose [Mass/Vol] 128 mg/dL High 70-99 [facility] Comment on above: Performed By: #### L 500.2500, L100.0100, L501.4021 ####[facility] [address] [place], [address] Potassium [Moles/Vol] 3.9 mmol/L Normal 3.3-5.1 [facility] Comment on above: Performed By: #### L 500.2500, L100.0100, L501.4021 ####[facility] [address] [place], [address] Sodium [Moles/Vol] 142 mmol/L Normal 133-145 [facility] Comment on above: Performed By: #### L 500.2500, L100.0100, L501.4021 ####[facility] [address] [place], [address] Urea nitrogen [Mass/Vol] 19 mg/dL Normal 4-19 [facility] Comment on above: Performed By: #### L 500.2500, L100.0100, L501.4021 ####[facility] [address] [place], [address] Basophil percentageOrdered B y: Seb Goodwin on 09-04-2024 Basophils/100 WBC (Bld) 1.0 % 0-1 [facility] CBC W/Diff, Automatedon 08-14 Absolute Lymph 0.96 X10 3/uL Normal 0.83-4.51 [facility] Comment on above: Performed By: #### L 500.2500, L100.0100, L501.4021 ####[facility] [address] [place], [address] Absolute Neut 2.6 X10 3/uL Normal 2.0-7.7 [facility] Comment on above: Performed By: #### L 500.2500, L100.0100, L501.4021 ####[facility] [address] [place], [address] Basophils/100 WBC (Bld) 1.0 % Normal 0-1 [facility] Comment on above: Performed By: #### L 500.2500, L100.0100, L501.4021 ####[facility] [address] [place], [address] Eosinophils/100 WBC (Bld) 2.3 % Normal 0-5 [facility] Comment on above: Performed By: #### L 500.2500, L100.0100, L501.4021 ####[facility] [address] [place], [address] Erythrocyte distribution width (RBC) [Ratio] 13.2 % Normal 11.6-14.6 [facility] Comment on above: Performed By: #### L 500.2500, L100.0100, L501.4021 ####[facility] [address] [place], [address] Hematocrit (Bld) [Volume fraction] 39.9 % Normal 37-47 [facility] Comment on above: Performed By: #### L 500.2500, L100.0100, L501.4021 ####[facility] [address] [place], [address] Hemoglobin (Bld) [Mass/Vol] 13.4 g/dL Normal 12.0-15.0 [facility] Comment on above: Performed By: #### L 500.2500, L100.0100, L501.4021 ####[facility] [address] [place], [address] IG% 0.300 Normal 0.0-0.9 [facility] Comment on above: Result Comment: IG% - Immature Granulocytes (promyelocytes, myelocytes and metamyelocytes) > 1% indicates that a LEFT SHIFT is Present. Performed By: #### L 500.2500, L100.0100, L501.4021 ####[facility] [address] [place], [address] Lymphocytes/100 WBC (Bld) 24.2 % Normal 19-41 [facility] Comment on above: Performed By: #### L 500.2500, L100.0100, L501.4021 ####[facility] [address] [place], [address] MCH (RBC) [Entitic mass] 31.4 pg Normal 27.0-32.0 [facility] Comment on above: Performed By: #### L 500.2500, L100.0100, L501.4021 ####[facility] [address] [place], [address] MCHC (RBC) [Mass/Vol] 33.6 g/dL Normal 32-36 [facility] Comment on above: Performed By: #### L 500.2500, L100.0100, L501.4021 ####[facility] [address] [place], [address] MCV (RBC) [Entitic vol] 93.4 fL Normal 81-99 [facility] Comment on above: Performed By: #### L 500.2500, L100.0100, L501.4021 ####[facility] [address] [place], [address] Monocytes/100 WBC (Bld) 7.3 % Normal 0-10 [facility] Comment on above: Performed By: #### L 500.2500, L100.0100, L501.4021 ####[facility] [address] [place], [address] Neutrophils/100 WBC (Bld) 64.9 % Normal 47-70 [facility] Comment on above: Performed By: #### L 500.2500, L100.0100, L501.4021 ####[facility] [address] [place], [address] Nucleated RBC (Bld) [#/Vol] 0 10*3/uL Normal 0-5 [facility] Comment on above: Performed By: #### L 500.2500, L100.0100, L501.4021 ####[facility] [address] [place], [address] Platelet mean volume (Bld) [Entitic vol] 10.8 fL Normal 6.2-12.0 [facility] Comment on above: Performed By: #### L 500.2500, L100.0100, L501.4021 ####[facility] [address] [place], [address] Platelets (Bld) [#/Vol] 191 10*3/uL Normal 150-450 [facility] Comment on above: Performed By: #### L 500.2500, L100.0100, L501.4021 ####[facility] [address] [place], [address] RBC (Bld) [#/Vol] 4.27 10*6/uL Normal 4.2-5.4 [facility] Comment on above: Performed By: #### L 500.2500, L100.0100, L501.4021 ####[facility] [address] [place], [address] RDW SD 45.6 fl High 35.1-43.9 [facility] Comment on above: Performed By: #### L 500.2500, L100.0100, L501.4021 ####[facility] [address] [place], [address] WBC (Bld) [#/Vol] 4.0 10*3/uL Low 4.4-11.0 [facility] Comment on above: Performed By: #### L 500.2500, L100.0100, L501.4021 ####[facility] [address] [place], [address] Carbon dioxide, total [Moles /volume] in Central venous bloodOrdered By: Seb Goodwin on 09-04-2024 CO2 [Moles/Vol] 23.9 mmol/L 21.0-32.0 [facility] Chest PA and Lateralon 09-04 Chest PA and Lateral [facility] Imaging Services [address] [place], [place] [address] Chest PA and Lateral MR#: [id number] Acct: [id number] Name: PERFECTO HOLMAN Rep #: [id number] : 1980 F 44 From: Travis Bustillos PCP: Dr. Enedina Medel MD Status: REG ER Study: Chest PA and Lateral Date of Exam: 09/04/24 Exam# [id number] Ordering Dr: Seb Goodwin DO EXAM: CHEST [...] evidence of acute cardiopulmonary disease. Reading Location: [address] CC: Dr. Enedina Medel MD; Dr. Seb Goodwin DO Evp General Counsel: Signed Normal [facility] Chloride assayOrdered By: Josr Goodwin on 09-04-2024 Chloride [Moles/Vol] 105 mmol/L 98-108 [facility] D-Dimer Quantitative (DVT/PE )on 09-04-2024 D-DIMER QUANT < 0.27 Low 0.27-0.49 [facility] Comment on above: Result Comment: NORM AL D-Dimer level (<0.50) indicates no DVT or PE. Performed By: #### L 300.8000 #### [facility] [address] [facility]. [place], [place], [id number] D-dimer measurement for deep venous thrombosisOrdered By: Seb Goodwin on 09-04-2024 D-Dimer Quantitative (PE/DVT) < 0.27 FEU/ug/m Low 0.27-0.49 [facility] Comment on above: NORMAL D-Dimer level (<0.50) indicates no DVT or PE. Emergency Department Summary on 09-04-2024 Emergency Department Summary [facility] Medical Records Department [address] [place] [address] Emergency Department Summary 09/04/24 MR#: [id number] Acct: [id number] Name: PERFECTO HOLMAN Rep #: [id number] : 1980 44 From: Seb Goodwin DO [...] clots. Patient denies any recent sick contacts. [facility] Medical History Hypoparathyroidism after surgical removal of [...] follow commands knew that she was at [facility] year is 2024 Skin: Warm, dry, [...] the rate of 106 bpm with a [place] interval 128 QTc of normal at 441. [...] or conc (more content not included)... Normal [facility] Eosinophil percentageOrdered By: Seb Goodwin on 09-04-2024 Eosinophils/100 WBC (Bld) 2.3 % 0-5 [facility] Erythrocyte distribution wid th ratioOrdered By: Seb Goodwin on 09-04-2024 Erythrocyte distribution width (RBC) [Ratio] 13.2 % 11.6-14.6 [facility] Erythrocyte distribution wid th standard deviationOrdered By: Seb Goodwin on 09-04-2024 Erythrocyte distribution width (RBC) [Entitic vol] 45.6 fL High 35.1-43.9 [facility] Erythrocyte distribution width (RBC) [Ratio] 45.6 fl High 35.1-43.9 [facility] Estimation of creatinine janet aranceOrdered By: Seb Goodwin on 09-04-2024 Estimated Creatinine Clearance Calc 51.11 ml/min 50-250 [facility] GFR/1.73 sq M.predicted mamie g non-blacks MDRD (S/P/Bld) [Vol rate/Area]Ordered By: Seb Goodwin on 09-04-2024 Estimated GFR (MDRD) Non-Af Amer 67 >60 [facility] Comment on above: mL/min/1.73m2 CKD-EP I Creatinine Equation (2020) Glomerular filtration rate ( GFR) estimation/1.73 sq m using serum, plasma, or whole bOrdered By: Seb Goodwin on 09-04-2024 GFR/1.73 sq M.predicted among non-blacks MDRD (S/P/Bld) [Vol rate/Area] 67 mL/min/{1.73_m2} >60 [facility] Comment on above: mL/min/1.73m2 CKD-EP I Creatinine Equation (2020) Hematocrit Auto (Bld) [Volum e fraction]Ordered By: Seb Goodwin on 09-04-2024 Hematocrit (Bld) [Volume fraction] 39.9 % 37-47 [facility] Hemoglobin measurementOrdere d By: Seb Goodwin on 09-04-2024 Hemoglobin (Bld) [Mass/Vol] 13.4 g/dL 12.0-15.0 [facility] Immature granulocytes/100 WB C Auto (Bld)Ordered By: Seb Goodwin on 09-04-2024 Immature granulocytes/100 WBC (Bld) 0.300 % 0.0-0.9 [facility] Comment on above: IG% - Immature Granu locytes (promyelocytes, myelocytes and metamyelocytes) > 1% indicates that a LEFT SHIFT is Present. L499.0042on 09-04-2024 Trop T High Sen < 6 Normal <=14 [facility] Comment on above: Performed By: #### L 499.0042 ####[facility] [address] [place], [address] L499.0043on 09-04-2024 Trop T High Sen Normal <=14 [facility] Comment on above: Result Comment: Canc elled via OM: Order cancelled - Patient discharged Performed By: #### L 499.0043 ####[facility] [address] [place], [address] L501.4021on 09-04-2024 Trop T High Sen < 6 Normal <=14 [facility] Comment on above: Performed By: #### L 500.2500, L100.0100, L501.4021 ####[facility] [address] [place], [address] Lymphocytes Auto (Unsp spec) [#/Vol]Ordered By: Seb Goodwin on 09-04-2024 Lymphocytes (Bld) [#/Vol] 0.96 10*3/uL 0.83-4.51 [facility] Lymphocytes/100 WBC Auto (Un sp spec)Ordered By: Seb Goodwin on 09-04-2024 Lymphocytes/100 WBC (Bld) 24.2 % 19-41 [facility] MCV (mean corpuscular volume ) determinationOrdered By: Seb Goodwin on 09-04-2024 MCV (RBC) [Entitic vol] 93.4 fL 81-99 [facility] Mean corpuscular hemoglobin (MCH) determinationOrdered By: Seb Goodwin on 09-04-2024 MCH (RBC) [Entitic mass] 31.4 pg 27.0-32.0 [facility] Mean corpuscular hemoglobin concentration (MCHC) determinationOrdered By: Seb Goodwin on 09-04-2024 MCHC (RBC) [Mass/Vol] 33.6 g/dL 32-36 [facility] Mean platelet volume determi nationOrdered By: Seb Goodwin on 09-04-2024 Platelet mean volume (Bld) [Entitic vol] 10.8 fL 6.2-12.0 [facility] Monocyte percentageOrdered B y: Seb Goodwin on 09-04-2024 Monocytes/100 WBC (Bld) 7.3 % 0-10 [facility] Neutrophil percentageOrdered By: Seb Goodwin on 09-04-2024 Neutrophils/100 WBC (Bld) 64.9 % 47-70 [facility] No Panel InformationOrdered By: Seb Goodwin on 09-04-2024 Troponin T High Sensitivity < 6 ng/L <14 [facility] Nucleated red blood cell per centageOrdered By: Seb Goodwin on 09-04-2024 Nucleated RBC/100 WBC (Bld) [Ratio] 0 % 0-5 [facility] Platelet countOrdered By: Josr Goodwin on 09-04-2024 Platelets (Bld) [#/Vol] 191 10*3/uL 150-450 [facility] Potassium (Unsp spec) [Mass/ Vol]Ordered By: Seb Goodwin on 09-04-2024 Potassium [Moles/Vol] 3.9 mmol/L 3.3-5.1 [facility] Potassium measurement (mass/ volume)Ordered By: Seb Goodwin on 09-04-2024 Potassium (Unsp spec) [Mass/Vol] 3.9 mmol/L 3.3-5.1 [facility] RBC Auto (Bld) [#/Vol]Ordere d By: Seb Goodwin on 09-04-2024 RBC (Bld) [#/Vol] 4.27 10*6/uL 4.2-5.4 [facility] Serum creatinine measurement (mass/volume)Ordered By: Seb Goodwin on 09-04-2024 Creatinine [Mass/Vol] 1.04 mg/dL 0.70-1.20 [facility] Serum glucose measurement (m ass/volume)Ordered By: Seb Goodwin on 09-04-2024 Glucose [Mass/Vol] 128 mg/dL High 70-99 [facility] Serum or plasma calcium cat urement (mass/volume)Ordered By: Seb Goodwin on 09-04-2024 Calcium [Mass/Vol] 9.4 mg/dL 7.6-11.0 [facility] Serum or plasma urea nitroge n measurement (mass/volume)Ordered By: Seb Goodwin on 09-04-2024 Urea nitrogen [Mass/Vol] 19 mg/dL 4-19 [facility] Sodium levelOrdered By: Bernardo Goodwin on 09-04-2024 Sodium [Moles/Vol] 142 mmol/L 133-145 [facility] Troponin T.cardiac High sens itivity method [Mass/Vol]Ordered By: Seb Goodwin on 09-04-2024 Troponin T High Sensitivity 2 Hour < 6 ng/L <14 [facility] Troponin T.cardiac [Mass/vol ume] in Serum or Plasma by High sensitivity methodOrdered By: Seb Goodwin on 09-04-2024 Troponin T.cardiac High sensitivity method [Mass/Vol] < 6 ng/L <14 [facility] White blood cell (WBC) count Ordered By: Seb Goodwin on 09-04-2024 WBC (Bld) [#/Vol] 4.0 10*3/uL Low 4.4-11.0 [facility] T4 Free Directon 09-03-2024 T4 FREE DIRECT 1.40 ng/dL Normal 0.76-1.46 [facility] Comment on above: Performed By: #### L 506.0400, L501.9520 ####[facility] [address] [place], [place], [address] T4 freeOrdered By: Enedina rolle on 09-03-2024 Free T4 [Mass/Vol] 1.40 ng/dL 0.76-1.46 [facility] TSH DL <= 0.005 mIU/L QnOrde red By: Enedina Medel on 09-03-2024 Thyroid Stimulating Hormone (TSH) 0.661 uIU/mL 0.300-4.200 [facility] TSH Qn 0.661 uIU/mL 0.300-4.200 [facility] Thyroid Stim Hormone (TSH)on 09-03-2024 TSH 0.661 uIU/mL Normal 0.300-4.200 [facility] Comment on above: Performed By: #### L 506.0400, L501.9520 ####[facility] [address] [place], [address] Vitamin D,25 Hydroxyon 04-18 Vitamin D 25-OH 47.9 ng/mL Normal [facility] Comment on above: Result Comment: Melba min D 25(OH) Status Range Deficiency <20 ng/mL (50nmol/L) Insufficiency 20 - 30 ng/mL (50 - 75 nmol/L) Sufficiency 30 - 100 ng/mL (75 - 250 nmol/L) Toxicity >100 ng/mL (>250 nmol/L) Performed By: #### L 500.4050, L506.1000, L506.0400, L100.0100, L500.4100, L501.9520 #### [facility] [address] [place], [address] CBC W/Diff, Automatedon 11- Absolute Lymph 1.60 X10 3/uL Normal 0.83-4.51 [facility] Comment on above: Performed By: #### L 500.4050, L506.1000, L506.0400, L100.0100, L500.4100, L501.9520 #### [facility] [address] [place], [address] Absolute Neut 2.9 X10 3/uL Normal 2.0-7.7 [facility] Comment on above: Performed By: #### L 500.4050, L506.1000, L506.0400, L100.0100, L500.4100, L501.9520 #### [facility] [address] [place], [address] Basophils/100 WBC (Bld) 0.8 % Normal 0-1 [facility] Comment on above: Performed By: #### L 500.4050, L506.1000, L506.0400, L100.0100, L500.4100, L501.9520 #### [facility] [address] [place], [address] Eosinophils/100 WBC (Bld) 6.6 % High 0-5 [facility] Comment on above: Performed By: #### L 500.4050, L506.1000, L506.0400, L100.0100, L500.4100, L501.9520 #### [facility] [address] [place], [address] Erythrocyte distribution width (RBC) [Ratio] 12.8 % Normal 11.6-14.6 [facility] Comment on above: Performed By: #### L 500.4050, L506.1000, L506.0400, L100.0100, L500.4100, L501.9520 #### [facility] [address] [place], [address] Hematocrit (Bld) [Volume fraction] 39.9 % Normal 37-47 [facility] Comment on above: Performed By: #### L 500.4050, L506.1000, L506.0400, L100.0100, L500.4100, L501.9520 #### [facility] [address] [place], [address] Hemoglobin (Bld) [Mass/Vol] 12.8 g/dL Normal 12.0-15.0 [facility] Comment on above: Performed By: #### L 500.4050, L506.1000, L506.0400, L100.0100, L500.4100, L501.9520 #### [facility] [address] [place], [address] IG% 0.400 Normal 0.0-0.9 [facility] Comment on above: Result Comment: IG% - Immature Granulocytes (promyelocytes, myelocytes and metamyelocytes) > 1% indicates that a LEFT SHIFT is Present. Performed By: #### L 500.4050, L506.1000, L506.0400, L100.0100, L500.4100, L501.9520 #### [facility] [address] [place], [address] Lymphocytes/100 WBC (Bld) 30.1 % Normal 19-41 [facility] Comment on above: Performed By: #### L 500.4050, L506.1000, L506.0400, L100.0100, L500.4100, L501.9520 #### [facility] [address] [place], [address] MCH (RBC) [Entitic mass] 30.5 pg Normal 27.0-32.0 [facility] Comment on above: Performed By: #### L 500.4050, L506.1000, L506.0400, L100.0100, L500.4100, L501.9520 #### [facility] [address] [place], [address] MCHC (RBC) [Mass/Vol] 32.1 g/dL Normal 32-36 [facility] Comment on above: Performed By: #### L 500.4050, L506.1000, L506.0400, L100.0100, L500.4100, L501.9520 #### [facility] [address] [place], [address] MCV (RBC) [Entitic vol] 95.2 fL Normal 81-99 [facility] Comment on above: Performed By: #### L 500.4050, L506.1000, L506.0400, L100.0100, L500.4100, L501.9520 #### [facility] [address] [place], [address] Monocytes/100 WBC (Bld) 7.1 % Normal 0-10 [facility] Comment on above: Performed By: #### L 500.4050, L506.1000, L506.0400, L100.0100, L500.4100, L501.9520 #### [facility] [address] [place], [address] Neutrophils/100 WBC (Bld) 55.0 % Normal 47-70 [facility] Comment on above: Performed By: #### L 500.4050, L506.1000, L506.0400, L100.0100, L500.4100, L501.9520 #### [facility] [address] [place], [address] Nucleated RBC (Bld) [#/Vol] 0 10*3/uL Normal 0-5 [facility] Comment on above: Performed By: #### L 500.4050, L506.1000, L506.0400, L100.0100, L500.4100, L501.9520 #### [facility] [address] [place], [address] Platelet mean volume (Bld) [Entitic vol] 11.0 fL Normal 6.2-12.0 [facility] Comment on above: Performed By: #### L 500.4050, L506.1000, L506.0400, L100.0100, L500.4100, L501.9520 #### [facility] [address] [place], [address] Platelets (Bld) [#/Vol] 195 10*3/uL Normal 150-450 [facility] Comment on above: Performed By: #### L 500.4050, L506.1000, L506.0400, L100.0100, L500.4100, L501.9520 #### [facility] [address] [place], [address] RBC (Bld) [#/Vol] 4.19 10*6/uL Low 4.2-5.4 [facility] Comment on above: Performed By: #### L 500.4050, L506.1000, L506.0400, L100.0100, L500.4100, L501.9520 #### [facility] [address] [place], [address] RDW SD 44.4 fl High 35.1-43.9 [facility] Comment on above: Performed By: #### L 500.4050, L506.1000, L506.0400, L100.0100, L500.4100, L501.9520 #### [facility] [address] [place], [address] WBC (Bld) [#/Vol] 5.3 10*3/uL Normal 4.4-11.0 [facility] Comment on above: Performed By: #### L 500.4050, L506.1000, L506.0400, L100.0100, L500.4100, L501.9520 #### [facility] [address] [place], [address] Comprehensive Metabolic Prof tnon 04-16-2024 Albumin [Mass/Vol] 4.1 g/dL Normal 3.2-5.0 [facility] Comment on above: Performed By: #### L 500.4050, L506.1000, L506.0400, L100.0100, L500.4100, L501.9520 #### [facility] [address] [place], [address] Albumin/Globulin [Mass ratio] 1.1 {ratio} Normal 0.9-2.4 [facility] Comment on above: Performed By: #### L 500.4050, L506.1000, L506.0400, L100.0100, L500.4100, L501.9520 #### [facility] [address] [place], [address] ALK P 61 U/L Normal 45-117 [facility] Comment on above: Performed By: #### L 500.4050, L506.1000, L506.0400, L100.0100, L500.4100, L501.9520 #### [facility] [address] [place], [address] ALT [Catalytic activity/Vol] 27 U/L Normal 13-56 [facility] Comment on above: Performed By: #### L 500.4050, L506.1000, L506.0400, L100.0100, L500.4100, L501.9520 #### [facility] [address] [place], [address] AST [Catalytic activity/Vol] 21 U/L Normal 15-37 [facility] Comment on above: Performed By: #### L 500.4050, L506.1000, L506.0400, L100.0100, L500.4100, L501.9520 #### [facility] [address] [place], [address] Bilirubin [Mass/Vol] 0.40 mg/dL Normal 0.20-1.00 [facility] Comment on above: Result Comment: For patients on eltrombopag therapy, use of Dimension [place] TBIL is not recommended. Performed By: #### L 500.4050, L506.1000, L506.0400, L100.0100, L500.4100, L501.9520 #### [facility] [address] [place], [address] BUN/CRE 17.0 RATIO Normal 10-20 [facility] Comment on above: Performed By: #### L 500.4050, L506.1000, L506.0400, L100.0100, L500.4100, L501.9520 #### [facility] [address] [place], [address] CA,Total 8.9 mg/dL Normal 8.5-10.1 [facility] Comment on above: Performed By: #### L 500.4050, L506.1000, L506.0400, L100.0100, L500.4100, L501.9520 #### [facility] [address] [place], [address] Chloride [Moles/Vol] 109 mmol/L High 98-107 [facility] Comment on above: Performed By: #### L 500.4050, L506.1000, L506.0400, L100.0100, L500.4100, L501.9520 #### [facility] [address] [place], [address] CO2 [Moles/Vol] 25.0 mmol/L Normal 21.0-32.0 [facility] Comment on above: Performed By: #### L 500.4050, L506.1000, L506.0400, L100.0100, L500.4100, L501.9520 #### [facility] [address] [place], [address] Creatinine [Mass/Vol] 1.12 mg/dL High 0.55-1.02 [facility] Comment on above: Result Comment: The validity of the calculated GFR GFRAA in patients over 70 years has not been determined. Clinical correlation is essential. Performed By: #### L 500.4050, L506.1000, L506.0400, L100.0100, L500.4100, L501.9520 #### [facility] [address] [place], [address] EST GFR - AA 67 mL/min Normal >60 [facility] Comment on above: Result Comment: Afri can Portuguese GFR Calc Performed By: #### L 500.4050, L506.1000, L506.0400, L100.0100, L500.4100, L501.9520 #### [facility] [address] [place], [address] GAP 7 Normal 5-15 [facility] Comment on above: Performed By: #### L 500.4050, L506.1000, L506.0400, L100.0100, L500.4100, L501.9520 #### [facility] [address] [place], [address] GFR/1.73 sq M.predicted among non-blacks MDRD (S/P/Bld) [Vol rate/Area] 56 mL/min/{1.73_m2} Low >60 [facility] Comment on above: Result Comment: Non- GFR Calc Performed By: #### L 500.4050, L506.1000, L506.0400, L100.0100, L500.4100, L501.9520 #### [facility] [address] [place], [address] Globulin (S) [Mass/Vol] 3.7 g/dL Normal 2.2-4.2 [facility] Comment on above: Performed By: #### L 500.4050, L506.1000, L506.0400, L100.0100, L500.4100, L501.9520 #### [facility] [address] [place], [address] Glucose [Mass/Vol] 95 mg/dL Normal 74-106 [facility] Comment on above: Performed By: #### L 500.4050, L506.1000, L506.0400, L100.0100, L500.4100, L501.9520 #### [facility] [address] [place], [address] Potassium [Moles/Vol] 3.6 mmol/L Normal 3.5-5.1 [facility] Comment on above: Performed By: #### L 500.4050, L506.1000, L506.0400, L100.0100, L500.4100, L501.9520 #### [facility] [address] [place], [address] Sodium [Moles/Vol] 141 mmol/L Normal 136-145 [facility] Comment on above: Performed By: #### L 500.4050, L506.1000, L506.0400, L100.0100, L500.4100, L501.9520 #### [facility] [address] [place], [address] T PROT 7.8 g/dL Normal 6.4-8.2 [facility] Comment on above: Performed By: #### L 500.4050, L506.1000, L506.0400, L100.0100, L500.4100, L501.9520 #### [facility] [address] [place], [address] Urea nitrogen [Mass/Vol] 19 mg/dL High 7-18 [facility] Comment on above: Performed By: #### L 500.4050, L506.1000, L506.0400, L100.0100, L500.4100, L501.9520 #### [facility] [address] [place], [address] Lipid Profileon 04-16-2024 Cholesterol [Mass/Vol] 185 mg/dL Normal 200 [facility] Comment on above: Result Comment: <200 mg/dL Desirable 200-240 mg/dL Borderline >240 mg/dL High Risk Performed By: #### L 500.4050, L506.1000, L506.0400, L100.0100, L500.4100, L501.9520 #### [facility] [address] [place], [address] Cholesterol in HDL [Mass/Vol] 79 mg/dL Normal [facility] Comment on above: Result Comment: The drugs N-Acetylcysteine and Metamizole may falsely depress this assay. Reference Range HDL <40 mg/dL Low HDL Cholesterol HDL >or= 60 mg/dL High HDL Cholesterol Performed By: #### L 500.4050, L506.1000, L506.0400, L100.0100, L500.4100, L501.9520 #### [facility] [address] [place], [address] Cholesterol in LDL [Mass/Vol] 94 mg/dL Normal 0-130 [facility] Comment on above: Performed By: #### L 500.4050, L506.1000, L506.0400, L100.0100, L500.4100, L501.9520 #### [facility] [address] [place], [address] Cholesterol in VLDL [Mass/Vol] 12 mg/dL Normal 5-40 [facility] Comment on above: Performed By: #### L 500.4050, L506.1000, L506.0400, L100.0100, L500.4100, L501.9520 #### [facility] [address] [place], [address] Triglyceride [Mass/Vol] 62 mg/dL Normal [facility] Comment on above: Result Comment: The drugs N-Acetylcysteine and Metamizole may falsely depress this assay. Serum Triglycerides Reference Interval Normal <150 mg/dL Borderline high 150 - 199 mg/dL High 200 - 499 mg/dL Very High > or = 500 mg/dL Performed By: #### L 500.4050, L506.1000, L506.0400, L100.0100, L500.4100, L501.9520 #### [facility] [address] [place], [address] T4 Free Directon 04-16-2024 T4 FREE DIRECT 1.17 ng/dL Normal 0.76-1.46 [facility] Comment on above: Performed By: #### L 500.4050, L506.1000, L506.0400, L100.0100, L500.4100, L501.9520 #### [facility] [address] [place], [address] Thyroid Stim Hormone (TSH)on 04-16-2024 TSH 0.737 uIU/mL Normal 0.358-3.740 [facility] Comment on above: Performed By: #### L 500.4050, L506.1000, L506.0400, L100.0100, L500.4100, L501.9520 #### [facility] [address] [facility] [place], [address] Thyroid Stim Hormone (TSH)on 01-21-2024 TSH 0.34 uIU/mL Low 0.358-3.74 [facility] Comment on above: Performed By: #### L 501.9520 #### [facility] [address] [place], [address] Serum or plasma thyroid stim ulating hormone (TSH) measurement (units/volume)Ordered By: Enedina Medel on 10-10-2023 TSH Qn 3.77 uIU/mL 0.358-3.74 [facility] CNPKimberli 08-21-2023 CNPN Telephone (OBGYWM) PERFECTO HOLMAN ([id number]) 1980 F Date Time Provider Department 08/21/23 ANA MARÍA GOODE During your visit today, we recorded the following information about you: Ana María Goode APRN.ROSS 08/21/2023 12:59 PM Signed Please notify pt - cervical polyp pathology is benign. Ana María Goode APRN.Kasia Henry RN 08/21/2023 2:09 PM Signed Patient notified. KASIA AARON RN Allergies As of Date: 08/21/2023 Noted Allergy Reaction NO KNOWN DRUG ALLERGIES 08/07/2005 Date Reviewed: 08/19/2023 Reviewed by: Ana María Goode APRN.CNP - Fully Assessed Reason for Visit: Results [...] 06/26/2016 Hypothyroidism affecting [O99.280, E0*07/17/2015 06/26/2016 control [[id number]] 11/07/2015 Cervical polyp [N84.1] 08/19/2023 Encounter Status:Closed by KASIA AARON on 08/21/23 Normal [facility] CNOVon 08-19-2023 CNOV Office Visit (OBGYWM) PERFECTO HOLMAN ([id number]) 1980 F Date Time Provider Department 08/19/23 10:30 AM ANA MARÍA GOODE During your visit today, we recorded the following information about you: Blood pressure Weight 110/78 48.3 kg Ana María Goode APRN.CNP 08/19/2023 10:52 AM Signed Installment Dealer offered: Patient declines. Perfecto Valle Soraidamarvel presents for removal of a cervical polyp [...] and written material given to the patient. ERIN Abreu Amanda, [place] 08/19/2023 10:25 AM Signed YOUR RECOVERY [...] Reviewed: 08/19/2023 Reviewed by: Ana María Goode APRN.TURKEY CLEANER - Fully Assessed Reason for Visit: cervical polypectomy [Other] Primary Visit Diagnosis:Cervical polyp [N84.1] Order(s):CERVICAL BIOPSY OR EXCISION [[id number]] Order #: [id number] SURGICAL PATHOLOGY [[id number]] Order #: [id number] Prescriptions as of 08/19/2023 - QUEtiapine (SEROQUEL) [...] 06/26/2016 Hypothyroidism affecting [O99.280, E0*07/17/2015 06/26/2016 control [[id number]] 11/07/2015 Cervical polyp [N84.1] 08/19/2023 Other instructions from your clinician: YOUR RECOVERY After your polypectomy you may have: Vaginal bleeding Mild cramping Do NOT put anything in the vagina for 1 week This includes: (more content not included)... Normal [facility] SURGICAL PATHOLOGYon 024 CASE REPORT Normal [facility] Comment on above: Order Comment: Speci men Type: TISSUE SPECIMEN Ordering Facility: [facility] Address: [address] [place] [address] Result Comment: Surg [facility] Pathology Report Case: [id number] Authorizing Provider: Ana María Goode APRN.TURKEY CLEANER Collected: 08/19/2023 11:00 AM Ordering Location: OB/Gynecology Received: 08/19/2023 12:22 PM Pathologist: Mega Samuels MD Specimen: ENDOCERVIX POLYP Performed By: #### S #### [facility] CLIA [id number] [address] [place] [address] [place] CLINICAL HISTORY polyp Normal [facility] Comment on above: Order Comment: Speci men Type: TISSUE SPECIMEN Ordering Facility: [facility] Address: [address] [place] [address] Performed By: #### S #### [facility] CLIA [id number] [address] [place], [place] [id number] [place] FINAL DIAGNOSIS Normal [facility] Comment on above: Order Comment: Speci men Type: TISSUE SPECIMEN Ordering Facility: [facility] Address: [address] [place] [address] Result Comment: A. E ndocervix, polypectomy: - Benign endocervical polyp. ACV/mm/08/21/2023 Performed By: #### S #### [facility] CLIA [id number] [address] [place] [address] [place] FINAL PERFORMING LAB Normal [facility] Comment on above: Order Comment: Speci men Type: TISSUE SPECIMEN Ordering Facility: [facility] Address: [address] [place] [address] Result Comment: Diag nostic interpretation performed at [facility], [address] [place] [address] CLIA# [id number] President Financial Institution: Paco Alvarez M.D. Performed By: #### S #### [facility] CLIA [id number] [address] [place] [address] [place] GROSS DESCRIPTION Normal [facility] Comment on above: Order Comment: Speci men Type: TISSUE SPECIMEN Ordering Facility: [facility] Address: [address] [place] [address] Result Comment: A. E NDOCERVIX POLYP Received in formalin is a segment of brown mucosal covered polypoid tissue measuring 0.7 x 0.5 x 0.2 cm. The specimen is bisected. Totally submitted in formalin in one cassette. SS August 19, 2023 11:48 PM Gross examination performed at [facility], [address] [place] [address] Performed By: #### S #### [facility] CLIA [id number] [address] [place] [address] [place] CNOVon 08-18-2023 CNOV Office Visit (OBGYWM) PERFECTO HOLMAN ([id number]) 1980 F Date Time Provider Department 08/18/23 7:00 AM ANA MARÍA GOODE During your visit today, we recorded the following information about you: Blood pressure Weight Last Period 48.6 kg 01/15/23 Ana María Goode, IBRAHIMA.TURKEY CLEANER 08/18/2023 9:34 AM Signed Installment Dealer offered: Patient declines. Perfecto is a 43 [...] L2 SAB0 IAB0 Ectopic0 Multiple0 Live Births2 Merchandise Marker History LMP: 01/15/2023, Having periods Age at Menarche: Age at First : Age at Menopause: Merchandise Marker History Comments: Sexual Activity: Yes; Male Contraception: [...] external genitalia normal, normal Bartholin's glands, urethra, [place]'s glands, no vulvar lesions, good vaginal support, [...] way. F (more content not included)... Normal [facility] HPV W/GENOTYPE THIN PREPon 0 08-18-2023 HPV 16 Ag Ql (Unsp spec) Negative Normal Neg ative for HPV DNA high risk type 16 by PCR [facility] Comment on above: Order Comment: Speci men Type: FLUID SPECIMEN Ordering Facility: [facility] Address: [address] [place] [address] Performed By: #### L [id number], HPVHRT #### [facility] CLIA [id number] [address] [place] [address] [place] HPV 18 Ag Ql (Unsp spec) Negative Normal Neg ative for HPV DNA high risk type 18 by PCR [facility] Comment on above: Order Comment: Speci men Type: FLUID SPECIMEN Ordering Facility: [facility] Address: [address] [place] [address] Performed By: #### L [id number], HPVHRT #### [facility] CLIA [id number] [address] [place] [address] [place] HPV 31+33+35+39+45+51+52+56+ 58+59+66+68 DNA ANA+probe Ql (Cvx) Negative for HPV DNA high risk types: 31,33,35,39,45,51,52 ,56,58,59,66,68 by PCR. Normal Negative for HPV DNA high risk types: 31,33,35,39,4 5,51,52,56,58 ,59,66,68 by PCR. [facility] Comment on above: Order Comment: Speci men Type: FLUID SPECIMEN Ordering Facility: [facility] Address: [address] [place] [address] Performed By: #### L [id number], HPVHRT #### [facility] CLIA [id number] [address] [place] [address] [place] PAP TESTon 08-18-2023 ADEQUACY Satisfactory for interpretation Normal [facility] Comment on above: Order Comment: Speci men Type: FLUID SPECIMEN Ordering Facility: [facility] Address: [address] [place] [address] Performed By: #### L [id number], HPVHRT #### [facility] CLIA [id number] [address] [place] [address] [place] CASE REPORT Normal [facility] Comment on above: Order Comment: Speci men Type: FLUID SPECIMEN Ordering Facility: [facility] Address: [address] [place] [address] Result Comment: Gyne cologic Cytology Report Case: [id number] Authorizing Provider: Ana María Goode APRN.TURKEY CLEANER Collected: 08/18/2023 08:07 AM Ordering Location: OB/Gynecology Received: 08/18/2023 11:56 AM First Screen: Gladkaya, Kasey, CT, ASCP Specimen: Pap Test, ThinPrep, Cervix Performed By: #### L [id number], HPVHRT #### [facility] CLIA [id number] [address] [place] [address] [place] CLINICAL HISTORY, CYTOLOGY, RECYCLABLE MATERIALS SORTER Routine Exam Normal [facility] Comment on above: Order Comment: Speci men Type: FLUID SPECIMEN Ordering Facility: [facility] Address: [address] [place] [address] Performed By: #### L [id number], HPVHRT #### [facility] CLIA [id number] [address] [place] [id number] [place] FINAL PERFORMING LAB Normal [facility] Comment on above: Order Comment: Speci men Type: FLUID SPECIMEN Ordering Facility: [facility] Address: [address] [place] [address] Result Comment: Tech nical component, mangle press catcher screening performed at [facility], [address] [place] [address] [place] [address] CLIA# [id number] Diagnostic interpretation performed at [facility], [address] [place], [place] [id number] CLIA# [id number] President Financial Institution: Paco Alvarez M.D. Performed By: #### L [id number], HPVHRT #### [facility] CLIA [id number] [address] [place] [address] [place] HPV REFLEX Yes HPV Normal [facility] Comment on above: Order Comment: Speci men Type: FLUID SPECIMEN Ordering Facility: [facility] Address: [address] [place] [address] Performed By: #### L [id number], HPVHRT #### [facility] CLIA [id number] [address] [place] [address] [place] INTERPRETATION, CYTOLOGY, RECYCLABLE MATERIALS SORTER Normal [facility] Comment on above: Order Comment: Speci men Type: FLUID SPECIMEN Ordering Facility: [facility] Address: [address] [place] [address] Result Comment: Nega tive for intraepithelial lesion or malignancy. Performed By: #### L [id number], HPVHRT #### [facility] CLIA [id number] [address] [place] [address] [place] LMP 01/15/2023 Normal [facility] Comment on above: Order Comment: Speci men Type: FLUID SPECIMEN Ordering Facility: [facility] Address: [address] [place] [address] Performed By: #### L [id number], HPVHRT #### [facility] CLIA [id number] [address] [place] [address] [place] PAP DISCLAIMER COMMENT The Pap Smear is a screening test for cervical cancer. False negative results occur with all screening tests, emphasizing the need for rescreening at recommended intervals, and clinical correlation. Normal [facility] Comment on above: Order Comment: Speci men Type: FLUID SPECIMEN Ordering Facility: [facility] Address: [address] [place] [address] Performed By: #### L [id number], HPVHRT #### [facility] CLIA [id number] [address] [place] [address] [place] PAP LEGAL PROCESS SPECIALIST COMMENT This specimen has been analyzed by the ThinPrep Imaging System, an automated imaging and review system, which assists the laboratory in evaluating cells on ThinPrep Pap tests. Following automated imaging, selected morrow from every slide are reviewed by a mangle press catcher. Normal [facility] Comment on above: Order Comment: Speci men Type: FLUID SPECIMEN Ordering Facility: [facility] Address: [address] [place] [address] Performed By: #### L [id number], HPVHRT #### [facility] CLIA [id number] [address] [place] [address] [place] Serum or plasma thyroid stim ulating hormone (TSH) measurement (units/volume)Ordered By: Enedina Medel on 07-04-2023 TSH Qn 2.88 uIU/mL 0.358-3.74 [facility] Thin prep Papanicolaou smear with manual screeningOrdered By: Enedina Medel on 07-04-2023 Thin prep Papanicolaou smear with manual screening 1.04 ng/dL 0.76-1.46 [facility] - Chemistry and C hemistry - challengeOrdered By: Enedina Medel on 04-16-2023 Free T4 [Mass/Vol] 0.78 ng/dL 0.76-1.46 [facility] No Panel InformationOrdered By: Enedina Medel on 04-16-2023 Thyroid Stimulating Hormone (TSH) 13.30 uIU/mL 0.358-3.74 [facility] - Chemistry and C hemistry - challengeOrdered By: Enedina Meedl on 02-03-2023 Free T4 [Mass/Vol] 0.73 ng/dL 0.76-1.46 [facility] No Panel InformationOrdered By: Enedina Medel on 02-03-2023 Thyroid Stimulating Hormone (TSH) 19.20 uIU/mL 0.358-3.74 [facility] Absolute lymphocyte countOrd ered By: Enedina Medel on 12-06-2022 Lymphocytes Auto (Unsp spec) [#/Vol] 0.95 10*3/uL 0.83-4.51 [facility] Basophil percentageOrdered B y: Enedina Medel on 12-06-2022 Basophils/100 WBC (Bld) 0.8 % 0-1 [facility] Bilirubin [Mass/Vol] 0.30 mg/dL 0.20-1.00 [facility] Comment on above: For patients on eltr ombopag therapy, use of Dimension [place] TBIL is not recommended. Chloride [Moles/Vol] 108 mmol/L 98-107 [facility] Cholesterol [Mass/Vol] 158 mg/dL <200 [facility] Comment on above: <200 mg/dL Desirable 200-240 mg/dL Borderline >240 mg/dL High Risk Eosinophils/100 WBC (Bld) 1.6 % 0-5 [facility] Glucose [Mass/Vol] 101 mg/dL 74-106 [facility] Comment on above: Fasting Glucose resu lt from 100 to 125 mg/dL suggests IMPAIRED HOMEOSTASIS per A.D.A. criteria. Neutrophils (Bld) [#/Vol] 5.7 10*3/uL 2.0-7.7 [facility] Neutrophils/100 WBC (Bld) 77.3 % 47-70 [facility] Potassium [Moles/Vol] 4.1 mmol/L 3.5-5.1 [facility] Protein [Mass/Vol] 7.6 g/dL 6.4-8.2 [facility] Sodium [Moles/Vol] 138 mmol/L 136-145 [facility] Triglyceride [Mass/Vol] 40 mg/dL <199 [facility] [facility] Comment on above: The drugs N-Acetylcy steine and Metamizole may falsely depress this assay.Serum Triglycerides Reference Interval Normal <150 mg/dL Borderline high 150 - 199 mg/dL High 200 - 499 mg/dL Very High > or = 500 mg/dL WBC (Bld) [#/Vol] 7.4 10*3/uL 4.4-11.0 [facility] Blood erythrocytes count (nu mber/volume)Ordered By: Enedina Medel on 12-06-2022 RBC (Bld) [#/Vol] 4.03 10*6/uL 4.2-5.4 [facility] Blood hemoglobin measurement (mass/volume)Ordered By: Enedina Medel on 12-06-2022 Hemoglobin (Bld) [Mass/Vol] 13.1 g/dL 12.0-15.0 [facility] Blood lymphocytes/100 leukoc ytesOrdered By: Enedina Medel on 12-06-2022 Lymphocytes/100 WBC (Bld) 12.8 % 19-41 [facility] Blood monocytes/100 leukocyt esOrdered By: Enedina Medel on 12-06-2022 Monocytes/100 WBC (Bld) 7.2 % 0-10 [facility] Blood platelet mean volumeOr dered By: Enedina Medel on 12-06-2022 Platelet mean volume (Bld) [Entitic vol] 10.5 fL 6.2-12.0 [facility] Determination of erythrocyte mean corpuscular volume (MCV)Ordered By: Enedina Medel on 12-06-2022 MCV (RBC) [Entitic vol] 99.0 fL 81-99 [facility] Hematocrit Auto (Bld) [Volum e fraction]Ordered By: Enedina Medel on 12-06-2022 Hematocrit (Bld) [Volume fraction] 39.9 % 37-47 [facility] Laboratory - Chemistry and C hemistry - challengeOrdered By: Enedina Medel on 12-06-2022 ALP [Catalytic activity/Vol] 51 U/L 45-117 [facility] ALT [Catalytic activity/Vol] 33 U/L 13-56 [facility] CO2 [Moles/Vol] 27.0 mmol/L 21.0-32.0 [facility] Free T4 [Mass/Vol] 1.29 ng/dL 0.76-1.46 [facility] Globulin (S) [Mass/Vol] 3.7 g/dL 2.2-4.2 [facility] Urea nitrogen/Creatinine [Mass ratio] 16.5 mg/mg 10-20 [facility] - Hematology and Cell countsOrdered By: Enedina Medel on 12-06-2022 Erythrocyte distribution width (RBC) [Entitic vol] 46.9 fL 35.1-43.9 [facility] Erythrocyte distribution width (RBC) [Ratio] 12.9 % 11.6-14.6 [facility] Immature granulocytes/100 WBC (Bld) 0.300 % 0.0-0.9 [facility] Comment on above: IG% - Immature Granu locytes (promyelocytes, myelocytes and metamyelocytes) > 1% indicates that a LEFT SHIFT is Present. MCH (RBC) [Entitic mass] 32.5 pg 27.0-32.0 [facility] Nucleated RBC/100 WBC (Bld) [Ratio] 0 % 0-5 [facility] MCHC Auto (RBC) [Mass/Vol]Or dered By: Enedina Medel on 12-06-2022 MCHC (RBC) [Mass/Vol] 32.8 g/dL 32-36 [facility] No Panel InformationOrdered By: Enedina Medel on 12-06-2022 Estimated GFR (MDRD) Amer 75 mL/min >60 [facility] Comment on above: GFR Calc Estimated GFR (MDRD) Non-Af Amer 62 mL/min >60 [facility] Comment on above: Non- GFR Calc Thyroid Stimulating Hormone (TSH) 6.69 uIU/mL 0.358-3.74 [facility] Vitamin D 25-Hydroxy 51.5 ng/mL [facility] Comment on above: Vitamin D 25(OH) Sta tus Range Deficiency <20 ng/mL (50nmol/L) Insufficiency 20 - 30 ng/mL (50 - 75 nmol/L) Sufficiency 30 - 100 ng/mL (75 - 250 nmol/L) Toxicity >100 ng/mL (>250 nmol/L) Platelets bldOrdered By: Gibson Medel on 12-06-2022 Platelets (Bld) [#/Vol] 169 10*3/uL 150-450 [facility] Serum or plasma albumin cat urement (mass/volume)Ordered By: Enedina Medel on 12-06-2022 Albumin [Mass/Vol] 3.9 g/dL 3.2-5.0 [facility] Serum or plasma albumin/glob ulin mass ratioOrdered By: Enedina Medel on 12-06-2022 Albumin/Globulin [Mass ratio] 1.1 {ratio} 0.9-2.4 [facility] Serum or plasma calcium cat urement (mass/volume)Ordered By: Enedina Medel on 12-06-2022 Calcium [Mass/Vol] 8.9 mg/dL 8.5-10.1 [facility] Serum or plasma cholesterol in HDL measurement (mass/volume)Ordered By: Enedina Medel on 12-06-2022 Cholesterol in HDL [Mass/Vol] 67 mg/dL >40 [facility] Comment on above: The drugs N-Acetylcy steine and Metamizole may falsely depress this assay. Reference Range HDL <40 mg/dL Low HDL Cholesterol HDL >or= 60 mg/dL High HDL Cholesterol Serum or plasma cholesterol in VLDL measurement (mass/volume)Ordered By: Enedina Medel on 12-06-2022 Cholesterol in VLDL [Mass/Vol] 8 mg/dL 5-40 [facility] Serum or plasma creatinine m easurement (mass/volume)Ordered By: Enedina Medel on 12-06-2022 Creatinine [Mass/Vol] 1.03 mg/dL 0.55-1.02 [facility] Comment on above: The validity of the calculated GFR & GFRAA in patients over 70 years has not been determined. Clinical correlation is essential. Serum or plasma low density lipoprotein (LDL) cholesterol measurement (mass/volume)Ordered By: Enedina Medel on 12-06-2022 Cholesterol in LDL [Mass/Vol] 83 mg/dL 0-130 [facility] Serum or plasma urea nitroge n measurement (mass/volume)Ordered By: Enedina Medel on 12-06-2022 Urea nitrogen [Mass/Vol] 17 mg/dL 7-18 [facility] Thin prep Papanicolaou smear with manual screeningOrdered By: Endeina Medel on 12-06-2022 Thin prep Papanicolaou smear with manual screening 19 U/L 15-37 [facility] Thin prep Papanicolaou smear with manual screening 3 5-15 [facility] Laboratory - Chemistry and C hemistry - challengeon 02-22-2022 Free T4 [Mass/Vol] 1.32 ng/dL 0.76-1.46 [facility] Work Phone: No Panel Informationon 02-22 Thyroid Stimulating Hormone (TSH) 3.19 uIU/mL 0.358-3.74 [facility] Work Phone: Laboratory - Chemistry and C hemistry - challengeon 12-19-2021 Free T4 [Mass/Vol] 1.38 ng/dL 0.76-1.46 [facility] Work Phone: No Panel Informationon 12-19 Thyroid Stimulating Hormone (TSH) 4.20 uIU/mL 0.358-3.74 [facility] Work Phone: Laboratory - Chemistry and C hemistry - challengeon 11-07-2021 Free T4 [Mass/Vol] 1.19 ng/dL 0.76-1.46 [facility] Work Phone: No Panel Informationon 11-07 Thyroid Stimulating Hormone (TSH) 7.71 uIU/mL 0.358-3.74 [facility] Work Phone: Vital Signs Date Time Vital Sign Value Performing Clinician Faci samy 09-04-2024 12:33-0400 Body temperature 98.2 [degF] Dr. Enedina Medel MD Work Phone: [facility] 09-04-2024 12:33-0400 Diastolic blood pressure 96 mm[Hg] Dr. Enedina Medel MD Work Phone: [facility] 09-04-2024 12:33-0400 Heart rate 85 /min Dr. Enedina Medel MD Work Phone: [facility] 09-04-2024 12:33-0400 Respiratory rate 18 /min Dr. Enedina Medel MD Work Phone: [facility] 09-04-2024 12:33-0400 SaO2% (BldA) [Mass fraction] 98 % Dr. Enedina Medel MD Work Phone: [facility] 09-04-2024 12:33-0400 Systolic blood pressure 113 mm[Hg] Dr. Enedina Medel MD Work Phone: [facility] 09-04-2024 08:39-0400 Body height 157.[address] Enedina Medel MD Work Phone: [facility] 09-04-2024 08:39-0400 Body mass index (BMI) [Ratio] 19.3 kg/m2 Dr. Enedina Medel MD Work Phone: [facility] 09-04-2024 08:39-0400 Body weight 47.[address] Enedina Medel MD Work Phone: [facility] 08-19-2023 10:28-0500 Body weight 48.26 kg Ana María Goode APRN.TURKEY CLEANER Work Phone: [facility] 08-19-2023 10:28-0500 Diastolic blood pressure 78 mm[Hg] Ana María Goode APRN.TURKEY CLEANER Work Phone: [facility] 08-19-2023 10:28-0500 Systolic blood pressure 110 mm[Hg] Aan María Goode APRN.TURKEY CLEANER Work Phone: [facility] 08-18-2023 07:03-0500 Body weight 48.63 kg Ana María Goode APRN.TURKEY CLEANER Work Phone: [facility] 08-18-2023 07:03-0500 Diastolic blood pressure 60 mm[Hg] Ana María Goode ACADEMIC COMPUTING DIRECTOR.TURKEY CLEANER Work Phone: [facility] 08-18-2023 07:03-0500 Systolic blood pressure 90 mm[Hg] Ana María Goode ACADEMIC COMPUTING DIRECTOR.TURKEY CLEANER Work Phone: [facility] Encounters Encounter Date Encounter Type Care Provider Facility Start: 12-07-2024 End: 12-07-[address] Enedina Medel MD Work Phone: -Laboratory García Shoemaker [facility] Start: 12-07-2024 End: 12-07-[address] Enedina Medel MD -Laboratory García Shoemaker [facility] Start: 12-07-2024 End: 12-07-2024 ambulatory Enedina Miaquilino Facility:[facility] Start: 09-13-20[facility] Start: 09-04-2024 End: 09-04-2024 Emergency department patient visit Dr. Enedina Medel MD Work Phone: -Emergency Department Work Phone: Start: 09-03-2024 End: 09-03-[address] Enedina Medel MD -Laboratory Work Phone: Start: 09-03-[address] Enedina tucker MD -Laboratory Work Phone: Start: 09-03-2024 End: 09-03-[address] Enedina Medel MD Work Phone: [facility] Work Phone: Start: 05-05-2024 Encounter for genera l adult medical examination without abnormal findings Enedina Medel [facility] Start: 04-16-2024 End: 04-16-2024 [facility] Start: 01-21-2024 End: 01-21-2024 ambulatory [facility] Facility:[facility] Start: 10-10-2023 End: 10-10-2023 ambulatory [facility] Work Phone: Start: 10-10-2023 End: 10-10-2023 Patient encounter procedure [facility] Work Phone: Start: 08-21-2023 Telephone encounter Ana María mcgovern APRN.TURKEY CLEANER Work Phone: OB/Gynecology Comment on above: Results Start: 08-19-2023 End: 08-19-2023 ambulatory [facility] Facility:[facility] Start: 08-19-2023 End: 08-19-2023 Patient encounter procedure Ana María Goode APRN.TURKEY CLEANER Work Phone: OB/Gynecology Comment on above: Cervical polyp (Prim danilo Dx) Start: 08-18-2023 End: 08-18-2023 [facility] Facility:[facility] Start: 08-18-2023 End: 08-18-2023 Patient encounter procedure Ana María Goode APRN.TURKEY CLEANER Work Phone: OB/Gynecology Comment on above: Encounter for gyneco logical examination with abnormal finding (Primary Dx); Amenorrhea; Cervical polyp; Encounter for Papanicolaou smear for cervical cancer screening; Special screening examination for human papillomavirus (HPV); Screening mammogram for breast cancer Start: 08-18-2023 End: 08-18-2023 Patient encounter status Ana María Goode APRN.TURKEY CLEANER Work Phone: [facility] Start: 07-04-2023 End: 07-04-2023 Patient encounter procedure [facility] Work Phone: Start: 04-16-2023 End: 04-16-2023 ambulatory [facility] Work Phone: Start: 04-16-2023 End: 04-16-2023 Patient encounter procedure [facility] Work Phone: Start: 02-03-2023 End: 02-03-2023 ambulatory [facility] Work Phone: Start: 02-03-2023 End: 02-03-2023 Patient encounter procedure [facility], García Shoemaker [facility] Start: 12-06-2022 End: 12-06-2022 ambulatory [facility] Work Phone: Start: 12-06-2022 End: 12-06-2022 [facility] Start: 02-22-2022 End: 02-22-2022 ambulatory [facility] Work Phone: Start: 02-22-2022 End: 02-22-2022 Patient encounter procedure [facility] Start: 12-19-2021 End: 12-19-2021 [facility] Start: 11-07-2021 End: 11-07-2021 [facility] Procedures Date Procedure Procedure Detail Performing Clinician Start: 09-04-2024 D-dimer assay, quantitative Dr. Enedina Medel MD Work Phone: Comment on above: NORMAL D-Dimer level (<0.50) indicates no DVT or PE. Start: 09-04-2024 X-ray of chest, PA a nd lateral views Dr. Enedina Medel MD Work Phone: Start: 09-04-[address] Enedina Medel MD Work Phone: Start: 07-13-2015 H/O: section H/O s ection Ana María Goode APRN.TURKEY CLEANER Work Phone: Start: 02-21-2012 Lipid 1996 panel - S leopoldo or Plasma Ana María Goode APRN.TURKEY CLEANER Work Phone: Plan of Treatment Date Care Activity Detail Author Start: 11-26-2025 Urine microalbumin profile DTaP,Tdap,Td Vaccine (8 - Td or Tdap) [facility] Start: 09-04-2024 [facility] Start: 09-04-2024 [facility] Start: 06-15-2023 Depression Assessment Depression Ass essment [facility] Start: 02-13-2023 Influenza vaccination Influenza Vacc ine (#1) [facility] Start: 2023 Diabetes Screening Diabetes Screenin g [facility] Start: 2023 Lipid panel [facility] Start: 2023 Screening for malign ant neoplasm of colon [facility] Start: 2018 Screening for malign ant neoplasm of breast Mammogram Screening [facility] Start: 01-22-2017 Screening for malign ant neoplasm of cervix [facility] Start: 01-13-1996 Annual PCP Team Senior Financial Consultant dwain Disease Visit Annual PCP Team Chronic Disease Visit [facility] Start: 01-13-1996 Hepatitis C screening Hepatitis C Sc reening [facility] Start: 1978 Covid-19 Vaccine (#1) Covid-19 Vacci ne (#1) [facility] Start: 1978 Hepatitis B Vaccine (1 of 3 - 3-dose series) Hepatitis B Vaccine (1 of 3 - 3-dose series) [facility] Biopsy cervix single/mult/excision of lesion spx CERVICAL BIOPSY OR EXCISION Procedures Routine Cervical polyp Ordered: 08/18/2023 [facility] Work Phone: Comment on above: Ordered: 08/18/2023 Biopsy cervix single/mult/excision of lesion spx CERVICAL BIOPSY OR EXCISION Procedures Routine Cervical polyp Ordered: 08/19/2023 [facility] Work Phone: Comment on above: Ordered: 08/19/2023 HPV W/GENOTYPE THIN PREP HPV W/GENOTYPE THIN PREP Lab Routine Encounter for Papanicolaou smear for cervical cancer screening Special screening examination for human papillomavirus (HPV) Encounter for gynecological examination with abnormal finding 08/18/2023 8:07 AM EST [facility] Work Phone: End: 09-16-2024 MG Breast Screening NYDIA SCREENING Radiology Routine Screening mammogram for breast cancer Encounter for gynecological examination with abnormal finding 1 Occurrences starting 08/18/2023 until 09/16/2024 [facility] Work Phone: Comment on above: 1 Occurrences starti ng 08/18/2023 until 09/16/2024 PAP TEST PAP TEST Lab Rou ann marie Encounter for Papanicolaou smear for cervical cancer screening Special screening examination for human papillomavirus (HPV) Encounter for gynecological examination with abnormal finding 08/18/2023 8:07 AM [facility] Work Phone: Patient referral [facility] Work Phone: SURGICAL PATHOLOGY SURGICAL PATH OLOGY Lab Routine Cervical polyp 08/19/2023 11:00 AM [facility] Immunization Date Immunization Notes Care Provider Lashanda gama 06-26-2016 influenza virus vacc ine, unspecified formulation Ana María Goode ACADEMIC COMPUTING DIRECTOR.TURKEY CLEANER Work Phone: [facility] 11-27-2015 tetanus toxoid, redu ray diphtheria toxoid, and acellular pertussis vaccine, adsorbed Ana María Goode ACADEMIC COMPUTING DIRECTOR.TURKEY CLEANER Work Phone: [facility] 09-14-2013 tetanus toxoid, redu ray diphtheria toxoid, and acellular pertussis vaccine, adsorbed Ana María Goode ACADEMIC COMPUTING DIRECTOR.TURKEY CLEANER Work Phone: [facility] 04-14-2013 influenza virus vacc ine, unspecified formulation Ana María Goode ACADEMIC COMPUTING DIRECTOR.TURKEY CLEANER Work Phone: [facility] 02-08-2013 tetanus toxoid, redu ray diphtheria toxoid, and acellular pertussis vaccine, adsorbed Ana María Goode ACADEMIC COMPUTING DIRECTOR.TURKEY CLEANER Work Phone: [facility] 11-11-1991 measles, mumps and rubella virus vaccine Ana María Goode ACADEMIC COMPUTING DIRECTOR.TURKEY CLEANER Work Phone: [facility] 02-25-1980 poliovirus vaccine, inactivated Ana María Goode APRN.TURKEY CLEANER Work Phone: [facility] 02-20-1980 DTP-Haemophilus influenzae type b conjugate vaccine Ana María Topetehrie ACADEMIC COMPUTING DIRECTOR.TURKEY CLEANER Work Phone: [facility] 05-13-1979 measles, mumps and rubella virus vaccine Ana María Goode ACADEMIC COMPUTING DIRECTOR.TURKEY CLEANER Work Phone: [facility] 1980 DTP-Haemophilus influenzae type b conjugate vaccine Ana María Goode APRN.TURKEY CLEANER Work Phone: [facility] 1978 DTP-Haemophilus influenzae type b conjugate vaccine Ana María Goode APRN.TURKEY CLEANER Work Phone: [facility] 1978 poliovirus vaccine, inactivated Ana María Goode ACADEMIC COMPUTING DIRECTOR.TURKEY CLEANER Work Phone: [facility] 1978 DTP-Haemophilus influenzae type b conjugate vaccine Ana María Goode ACADEMIC COMPUTING DIRECTOR.TURKEY CLEANER Work Phone: [facility] 1978 poliovirus vaccine, inactivated Ana María Goode ACADEMIC COMPUTING DIRECTOR.TURKEY CLEANER Work Phone: [facility] 1978 DTP-Haemophilus influenzae type b conjugate vaccine Ana María Topetehrie ACADEMIC COMPUTING DIRECTOR.TURKEY CLEANER Work Phone: [facility] 1978 poliovirus vaccine, inactivated Ana María Goode ACADEMIC COMPUTING DIRECTOR.TURKEY CLEANER Work Phone: [facility] 1980 DTP-Haemophilus influenzae type b conjugate vaccine Ana María Goode ACADEMIC COMPUTING DIRECTOR.TURKEY CLEANER Work Phone: [facility] Payers Date Payer Category Payer Self-pay [id number] 2023 Private Health Insurance [facility] CHOICE PLUS [id number] 2023-Present [phone] [address] [place] [address] [id number] 07-21-2023 Unknown [id number] 09-14-2015 Unknown [id number] Private Health Insurance [id number] Unknown [id number] Unknown [id number] Unknown [id number] Unknown [id number] Unknown [id number] Unknown [id number] Unknown [id number] Social History Date Type Detail Facility Start: 08-22-2018 End: 07-31-2022 Tobacco smoking status FLIS Unknown if ever smoked [facility] Start: 1980 Sex Assigned At Female [facility] Start: 08-18-2023 End: 09-04-2024 Tobacco smoking status NHIS Never smoked tobacco [facility] Start: 08-18-2023 Tobacco use and exposure Smokeless tobacco non-user [facility] Start: 08-18-2023 End: 08-19-2023 Alcohol intake Current non-drinker of alcohol (finding) [facility] Start: 08-18-2023 End: 08-19-2023 History of Social function [facility] Start: 08-18-2023 End: 08-19-2023 Tobacco use panel [facility] National Score (1-100), lower number is lower risk 46 [facility] Start: 1980 Sex Assigned At Not on file [facility] Start: 09-04-2024 End: 09-12-2024 Sex Female (finding) [facility] NEGATED: Highlighted rowStart: NINF History of tobacco use Passive smoker [facility] Medical Equipment Procedure Code Equipment Code [...] Level Of Cons ciousness Awake;Alert;Appropriate;Follow s Commands [facility] Work Phone: Clinical Notes 07-17-2015 to 09-04-2024 Telephone Encounter - Kasia Aaron RN - 08/21/2023 2:09 PM ESTTelephone Encounter - Ana María Goode APRN.CNP - 08/21/2023 12:59 PM ESTPatient InstructionsPatient Instructions Note Date & Type Note Facility 09-04-2024 Discharge summary [facility] 09-04-2024 Radiology Diagnostic study note [facility] Imaging Services [address] [place], [place] [address] Chest PA and Lateral MR#: [id number] Acct: [id number] Name: PERFECTO HOLMAN Rep #: [id number] : 1980 F 44 From: Thai Tripp MD PCP: Dr. Enedina Medel MD Status: REG ER Study:Chest PA and Lateral Date of Exam: 09/04/24 Exam# [id number] Ordering Dr: Chanelle Goodwin DO EXAM: CHEST [...] evidence of acute cardiopulmonary disease. Reading Location: [address] CC: Dr. Enedina Medel MD; Dr. Seb Goodwin DO ~ Evp General Counsel: Signed [facility] 08-21-2023 Miscellaneous Notes Patient notified. KASIA AARON RN Please notify pt - cervical polyp pathology is benign. Ana María Goode APRN.CNP documented in this encounter [facility] 08-19-2023 Note HNO ID: [id number] Author: ANA MARÍA GOODE APRN.CNP Service: ? Author Type: Nurse Practitioner Type: Progress Notes Filed: 08/19/2023 10:52 Note Text: Installment Dealer offered: Patient declines. Perfecto Holman presents for [...] given to the patient. Ana María Goode APRN.CNP [facility] 08-19-2023 Instructions Juan Victor MA - 08/19/2023 [...] contact the office. documented in this encounter [facility] 08-19-2023 History of Present illness Narrative Installment Dealer offered: Patient declines. Perfecto Holman presents for [...] given to the patient. Ana María Goode APRN.CNP documented in this encounter [facility] 08-18-2023 Note HNO ID: [id number] Author: ANA MARÍA GOODE APRN.CNP Service: ? Author Type: Nurse Practitioner Type: Progress Notes Filed: 08/18/2023 09:34 Note Text: Installment Dealer offered: Patient declines. Perfecto is a 43 [...] L2 SAB0 IAB0 Ectopic0 Multiple0 Live Births2 Merchandise Marker History LMP: 01/15/2023, Having periods Age at Menarche: Age at First : Age at Menopause: Merchandise Marker History Comments: Sexual Activity: Yes; Male Contraception: [...] external genitalia normal, normal Bartholin's glands, urethra, [place]'s glands, no vulvar lesions, good vaginal support, [...] at cervical polypectomy Ana María Goode APRN.ROSS [facility] 08-18-2023 Instructions Ana María Goode APRN.ROSS [...] hot flashes and has been approved by [place] [employer] [place] for only 6 months of use, however has NOT been well studied in the [place] for intermediate designer effects and THERE HAVE BEEN REPORTS OF [...] salmon and sardines and vegetables, such as Yakut cabbage, kale, and broccoli. Foods fortified with [...] acid, calcium carbonate is found in some nxpi-vyi-bvglxny antacid products, such as Tums and Rolaids [...] by your doctor. documented in this encounter [facility] 08-18-2023 History of Present illness Narrative Installment Dealer offered: Patient declines. Perfecto is a 43 [...] L2 SAB0 IAB0 Ectopic0 Multiple0 Live Births2 Merchandise Marker History LMP: 01/15/2023, Having periods Age at Menarche: Age at First : Age at Menopause: Merchandise Marker History Comments: Sexual Activity: Yes; Male Contraception: [...] external genitalia normal, normal Bartholin's glands, urethra, [place]'s glands, no vulvar lesions, good vaginal support, [...] at cervical polypectomy Ana María Goode APRN.ROSS documented in this encounter [facility] 07-17-2015 History of Past i llness [...] years. She has seen Dr. Mcnamara in [place] in the past. Patient conceived on her own without any fertility medication. TKRN Family history of defects 04/14/2013 12/08/2013 Overview: 04/14/2013Patient's niece was born with cleft palate. TKRN Thyroid nodule 12/04/2010 06/26/2016 documented as of this encounter (statuses as of 08/18/2023) [facility]02-02-2016 History of Past illness Narrative* Problem [...] years. She has seen Dr. Mcnamara in [place] in the past. Patient conceived on her own without any fertility medication. TKRN Family history of defects 04/14/2013 12/08/2013 Overview: 04/14/2013Patient's niece was born with cleft palate. TKRN Thyroid nodule 12/04/2010 06/26/2016 documented as of this encounter (statuses as of 08/19/2023) [facility]02[facility] History of Past illness Narrative* Problem [...] years. She has seen Dr. Mcnamara in [place] in the past. Patient conceived on her own without any fertility medication. TKRN Family history of defects 04/14/2013 12/08/2013 Overview: 04/14/2013Patient's niece was born with cleft palate. TKRN Thyroid nodule 12/04/2010 06/26/2016 documented as of this encounter (statuses as of 08/21/2023) [facility] Seb Goodwin [facility] Note Date/Time September 04, 2024 12: 37pm [facility] Medical Records Department [address] [place] [address] Emergency Department Summary 09/04/24 MR#: [id number] Acct: [id number] Name: PERFECTO HOLMAN Rep #:[id number] : [...] clots. Patient denies any recent sick contacts. 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 [...] % (Auto) 64.9 Lymph % (Auto) 24.2 [place] % (Auto) 7.3 Eos % (Auto) 2.3 [...] evidence of acute cardiopulmonary disease. Reading Location: [address] Discharge Plan Triage Chief Complaint: Palpitations [...] blood work was normal today. Print Language: [place] Disposition Disposition: Home, Self Care What to do if you have Problems For any increased pain, shortness of breath, bleeding, nausea or vomiting, chestpain, or any unexpected problems, contact your Primary Care Provider. Call [facility] ([phone]) or report to the closest Emergency Room. Call 911 if necessary. 09/04/24 [id number] <Electronically signed by Seb Goodwin DO> Suzi Signature (if applicable): CC: Dr. Enedina Medel MD ~ Signed [facility] Work Phone: Evaluation noteNo assessment information available [facility] Work Phone: Evaluation note* Diagnosis Encounter for gynecological examination with abnormal finding- Primary Routine gynecological examination Amenorrhea Absence of menstruation Cervical polyp Mucous polyp of cervix Encounter for Papanicolaou smear for cervical cancer screening Special screening examination for human papillomavirus (HPV) Screening mammogram for breast cancer documented [facility] Diagnosis Cervical polyp- Primary Mucous polyp of cervix documented in this encounter [facility] Discharge instructions Additional Instructions Follow-up with your doctor in outpatient setting. Discussed with them about wearing a Holter monitor. Return with worsening symptoms or any concerns. Your thyroid test were normal. Your chest x-ray looked normal and your rest your blood work was normal today.[facility] Work Phone: Reason for referral (narrative)* Diagnostic Procedure Only (Routine) - Pending Review Specialty Diagnoses / Procedures Referred By Grant t Referred To Contact [facility] Diagnoses Screening mammogram for breast cancer Encounter for gynecological examination with abnormal finding Procedures NYDIA SCREENING SCREENING MAMMOGRAPHY BI 2-VIEW BREAST INC Ana María Eldridge APRN.CNP [address] [place] [address] [facility] [address] [place] [address] Referral ID Status Reason Start Date Expiration Date Visits Requested Visits Authorized [id number] Pending Review Auto-Generat ed Referral 08/18/2023 09/16/2024 1 1 [facility] for referral (narrative)No reason for referral information availableWBrecks[facility] Work Phone: Advance Directives No Advanced Directives Records Found Advance Directive Response Recorded Date/ Time Advance Directives No July 02, 2018 12:17pm Living Will Yes August 22, 2018 8:52pm Power of Bingo Floater Yes August 22 8:52pm Advance Directive Response Recorded Date/ Time Advance Directives No July 02, 2018 12:17pm Living Will No July 31, 2 023 11:24pm Power of Bingo Floater No July 31, 2022 11:24pm Advance Directive Response Recorded Date/ Time Advance Directives No July 02, 2018 11:17am Living Will No July 31, 2 023 10:24pm Power of Bingo Floater No July 31, 2022 10:24pm Advance Directive Response Recorded Date/ Time Living Will No September 04, 2024 8:52am Do you have a Healthcare Power of Bingo Floater? No September 04, 2024 8:52am Advance Directives [...] Prov ider, Attending Provider, Referring Provider Active Derrick Boat Leverman Relationship Specialty Start Date End Date Enedina Medel MD [address] [place] [address] PCP - General Family Medicine 10/20/19 Derrick Boat Leverman Relationship Specialty Start Date End Date Enedina Medel MD [address] [place] [address] PCP - General Family Medicine 10/20/19 Derrick Boat Leverman Relationship Specialty Start Date End Date Enedina Medel MD [address] [place] [address] PCP - General Family Medicine 10/20/19 Team Status: Active Member Role Status Dates Dr. Enedina Medel MD Primary Care Provider Active Start: September 03, 2024 Dr. Enedina Medel MD Attending Provider Active Start: September 03, 2024 Dr. Enedina eMdel MD Referring Provider Active Start: September 03, 2024 Team Status: Inactive Member Role Status Dates Dr. Enedina Medel MD Primary Care Provider Active Start: September 04, 2024 End: September 04, 2024 Dr. Seb Goodwin DO Emergency Provider Active Start: September 04, 2024 End: September 04, 2024 Team Status: Active Member Role/Relationship Status Dates Dr. Enedina Medel MD Primary Care Provider Active Team Status: Inactive Member Role/Relationship Status Dates Dr. Enedina Medel MD Primary Care Provider Active Start: September 03, 2024 End: September 03, 2024 Dr. Enedina Medel MD Attending Provider Active Start: September 03, 2024 End: September 03, 2024 Dr. Enedina Medel MD Referring Provider Active Start: September 03, 2024 End: September 03, 2024 Team Status: Inactive Member Role/Relationship Status Dates Dr. Enedina Medel MD Primary Care Provider Active Start: September 04, 2024 End: September 04, 2024 Dr. Seb Goodwin DO Attending Provider Active Start: September 04, 2024 End: September 04, 2024 Dr. Seb Goodwin DO Emergency Provider Active Start: September 04, 2024 End: September 04, 2024 Team Status: Inactive Member Role/Relationship Status Dates Dr. Enedina Medel MD Primary Care Provider Active Start: December 07, 2024 End: December 07, 2024 Dr. Enedina Medel MD Attending Provider Active Start: December 07, 2024 End: December 07, 2024 Dr. Enedina Medel MD Referring Provider Active Start: December 07, 2024 End: December 07, 2024 Source Comments (unrecognize d section and content) In the event this informatio n is protected by the Federal Confidentiality of Alcohol and Drug Abuse Patient Records regulations: The Federal rules restrict any use of the information to criminally investigate or prosecute any alcohol or drug abuse patient.[facility] the event this information is protected by the Federal Confidentiality of Alcohol and Drug Abuse Patient Records regulations: The Federal rules restrict any use of the information to criminally investigate or prosecute any alcohol or drug abuse patient.[facility] the event this information is protected by the Federal Confidentiality of Alcohol and Drug Abuse Patient Records regulations: The Federal rules restrict any use of the information to criminally investigate or prosecute any alcohol or drug abuse patient.[facility] Reason for Visit (unrecogniz ed section and content) Reason Comments Discussion Reason Comments cervical polypectomy Reason Comments Results INFORMATION SOURCE (unrecogn ized section and content) DATE CREATED AUTHOR 09/02/2023 [facility] DATE CREATED AUTHOR AUTHOR'S ORGANIZ ATION 12/11/2024 [facility] FOR RECORDS PERTAINING TO PATIENTS WHO ARE [...] BE BASED ON THE PRIMARY CLINICAL RECORDS. [facility]. provides no warranty or guarantee of the accuracy or completeness of information in this document.
--- OUTSIDE RECORDS SUMMARY | 2025-03-18 08:22 | XMS RPT_ITS | CCD ---
Author Organization [facility] Care Team Providers Care Church Organist Name Role Phone Enedina Medel MD Primary Care Provider ENEDINA MEDEL Primary Care Unavailable ANA MARÍA GOODE Attending Unavailable ENEDINA MEDEL Primary Care Unavailable ANA MARÍA GOODE Attending Unavailable Dr. Enedina Medel MD Primary Care Provider Dr. Enedina Medel MD Attending Provider [phone] Enedina Medel MD Referring Provider [phone] Seb Goodwin DO Emergency Provider Dr. [...] Start: 08-17-2023 lamoTRIgine (LAMICTAL) 200 mg tablet Iycgtsis-Sw-Juj-Fe -FA ( VITAMIN) ORAL Tab (1 source) Start: 06-10-2010 End: 08-18-2023 take 1 tablet by mouth once daily Lweirpqu-Oo-Bdb-Fe -FA ( VITAMIN) ORAL Tab Take one(1) [...] T4 FREE DIRECT 1.40 ng/dL Normal 0.76-1.46 [facility] Comment on above: Performed By: #### L 501.9520, L506.0400 ####[facility] [address] [place], [place], [address] T4 freeOrdered By: Enedina rolle on 12-07-2024 Free T4 [Mass/Vol] 1.40 ng/dL 0.76-1.46 [facility] TSH DL <= 0.005 mIU/L QnOrde red By: Enedina Medel on 12-07-2024 TSH Qn 0.603 uIU/mL 0.300-4.200 [facility] Thyroid Stim Hormone (TSH)on 12-07-2024 TSH 0.603 uIU/mL Normal 0.300-4.200 [facility] Comment on above: Performed By: #### L 501.9520, L506.0400 ####[facility] [address] [place], [address] 12 Lead EKGon 09-04-2024 12 Lead EKG [facility] Cardi[facility] Services [address] [place] [address] 12 Lead EKG 09/04/24 0912 MR#: [id number] Acct: [id number] Name: PERFECTO HOLMAN Rep #: [id number] : 1980 44 From: Jaya Lewis MD [...] ECG Confirmed by JAYA LEWIS MD ([id number]), editor city JUAN HOWELL ([id number]) on 09/05/2024 8:19:53 AM Referred By: ADRYAN Confirmed By: JAYA LEWIS MD 09/05/24 0819 Date Jaya Lewis MD CC: Dr. Enedina Medel MD; Dr. Seb Goodwin DO Signed Normal [facility] Absolute lymphocyte countOrd ered By: Seb Goodwin on 09-04-2024 Lymphocytes Auto (Unsp spec) [#/Vol] 0.96 10*3/uL 0.83-4.51 [facility] Absolute neutrophil countOrd ered By: Seb Goodwin on 09-04-2024 Neutrophils (Bld) [#/Vol] 2.6 10*3/uL 2.0-7.7 [facility] Anion gap in Serum or Plasma Ordered By: Seb Goodwin on 09-04-2024 Anion gap [Moles/Vol] 13 mmol/L 5- [facility] Automated lymphocyte count a s percentage of total leukocytesOrdered By: Seb Goodwin on 09-04-2024 Lymphocytes/100 WBC Auto (Unsp spec) 24.2 % [facility] BUN/creatinine ratioOrdered By: Sbe Goodwin on 09-04-2024 Urea nitrogen/Creatinine [Mass ratio] 18.6 mg/mg - [facility] Basic Metabolic Profile (BMP )on 09-04-2024 BUN/CRE 18.6 RATIO Normal - [facility] Comment on above: Performed By: #### L 500.2500, L100.0100, L501.4021 ####[facility] [address] [place], [address] Calcium [Mass/Vol] 9.4 mg/dL Normal 7.6-11.0 [facility] Comment on above: Performed By: #### L 500.2500, L100.0100, L501.4021 ####[facility] [address] [place], [address] Chloride [Moles/Vol] 105 mmol/L Normal 98-108 [facility] Comment on above: Performed By: #### L 500.2500, L100.0100, L501.4021 ####[facility] [address] [place], [address] CO2 [Moles/Vol] 23.9 mmol/L Normal 21.0-32.0 [facility] Comment on above: Performed By: #### L 500.2500, L100.0100, L501.4021 ####[facility] [address] [place], [address] Creatinine [Mass/Vol] 1.04 mg/dL Normal 0.70-1.20 [facility] Comment on above: Performed By: #### L 500.2500, L100.0100, L501.4021 ####[facility] [address] [place], [address] ECRCL 51.11 ml/min Normal 50-250 [facility] Comment on above: Performed By: #### L 500.2500, L100.0100, L501.4021 ####[facility] [address] [place], [address] GAP 13 Normal 5-15 [facility] Comment on above: Performed By: #### L 500.2500, L100.0100, L501.4021 ####[facility] [address] [place], [address] GFR/1.73 sq M.predicted among non-blacks MDRD (S/P/Bld) [Vol rate/Area] 67 mL/min/{1.73_m2} Normal >60 [facility] Comment on above: Result Comment: mL/m in/1.73m2 CKD-EPI Creatinine Equation (2020) Performed By: #### L 500.2500, L100.0100, L501.4021 ####[facility] [address] [place], [address] Glucose [Mass/Vol] 128 mg/dL High 70-99 [facility] Comment on above: Performed By: #### L 500.2500, L100.0100, L501.4021 ####[facility] [address] [place], [address] Potassium [Moles/Vol] 3.9 mmol/L Normal 3.3-5.1 [facility] Comment on above: Performed By: #### L 500.2500, L100.0100, L501.4021 ####[facility] [address] [place], [address] Sodium [Moles/Vol] 142 mmol/L Normal 133-145 [facility] Comment on above: Performed By: #### L 500.2500, L100.0100, L501.4021 ####[facility] [address] [place], [address] Urea nitrogen [Mass/Vol] 19 mg/dL Normal 4-19 [facility] Comment on above: Performed By: #### L 500.2500, L100.0100, L501.4021 ####[facility] [address] [place], [address] Basophil percentageOrdered B y: Seb Goodwin on 09-04-2024 Basophils/100 WBC (Bld) 1.0 % 0-1 [facility] CBC W/Diff, Automatedon 08-14 Absolute Lymph 0.96 X10 3/uL Normal 0.83-4.51 [facility] Comment on above: Performed By: #### L 500.2500, L100.0100, L501.4021 ####[facility] [address] [place], [address] Absolute Neut 2.6 X10 3/uL Normal 2.0-7.7 [facility] Comment on above: Performed By: #### L 500.2500, L100.0100, L501.4021 ####[facility] [address] [place], [address] Basophils/100 WBC (Bld) 1.0 % Normal 0-1 [facility] Comment on above: Performed By: #### L 500.2500, L100.0100, L501.4021 ####[facility] [address] [place], [address] Eosinophils/100 WBC (Bld) 2.3 % Normal 0-5 [facility] Comment on above: Performed By: #### L 500.2500, L100.0100, L501.4021 ####[facility] [address] [place], [address] Erythrocyte distribution width (RBC) [Ratio] 13.2 % Normal 11.6-14.6 [facility] Comment on above: Performed By: #### L 500.2500, L100.0100, L501.4021 ####[facility] [address] [place], [address] Hematocrit (Bld) [Volume fraction] 39.9 % Normal 37-47 [facility] Comment on above: Performed By: #### L 500.2500, L100.0100, L501.4021 ####[facility] [address] [place], [address] Hemoglobin (Bld) [Mass/Vol] 13.4 g/dL Normal 12.0-15.0 [facility] Comment on above: Performed By: #### L 500.2500, L100.0100, L501.4021 ####[facility] [address] [place], [address] IG% 0.300 Normal 0.0-0.9 [facility] Comment on above: Result Comment: IG% - Immature Granulocytes (promyelocytes, myelocytes and metamyelocytes) > 1% indicates that a LEFT SHIFT is Present. Performed By: #### L 500.2500, L100.0100, L501.4021 ####[facility] [address] [place], [address] Lymphocytes/100 WBC (Bld) 24.2 % Normal 19-41 [facility] Comment on above: Performed By: #### L 500.2500, L100.0100, L501.4021 ####[facility] [address] [place], [address] MCH (RBC) [Entitic mass] 31.4 pg Normal 27.0-32.0 [facility] Comment on above: Performed By: #### L 500.2500, L100.0100, L501.4021 ####[facility] [address] [place], [address] MCHC (RBC) [Mass/Vol] 33.6 g/dL Normal 32-36 [facility] Comment on above: Performed By: #### L 500.2500, L100.0100, L501.4021 ####[facility] [address] [place], [address] MCV (RBC) [Entitic vol] 93.4 fL Normal 81-99 [facility] Comment on above: Performed By: #### L 500.2500, L100.0100, L501.4021 ####[facility] [address] [place], [address] Monocytes/100 WBC (Bld) 7.3 % Normal 0-10 [facility] Comment on above: Performed By: #### L 500.2500, L100.0100, L501.4021 ####[facility] [address] [place], [address] Neutrophils/100 WBC (Bld) 64.9 % Normal 47-70 [facility] Comment on above: Performed By: #### L 500.2500, L100.0100, L501.4021 ####[facility] [address] [place], [address] Nucleated RBC (Bld) [#/Vol] 0 10*3/uL Normal 0-5 [facility] Comment on above: Performed By: #### L 500.2500, L100.0100, L501.4021 ####[facility] [address] [place], [address] Platelet mean volume (Bld) [Entitic vol] 10.8 fL Normal 6.2-12.0 [facility] Comment on above: Performed By: #### L 500.2500, L100.0100, L501.4021 ####[facility] [address] [place], [address] Platelets (Bld) [#/Vol] 191 10*3/uL Normal 150-450 [facility] Comment on above: Performed By: #### L 500.2500, L100.0100, L501.4021 ####[facility] [address] [place], [address] RBC (Bld) [#/Vol] 4.27 10*6/uL Normal 4.2-5.[address] [facility] Comment on above: Performed By: #### L 500.2500, L100.0100, L501.4021 ####[facility] [address] [place], [address] RDW SD 45.6 fl High 35.1-43.9 [facility] Comment on above: Performed By: #### L 500.2500, L100.0100, L501.4021 ####[facility] [address] [place], [address] WBC (Bld) [#/Vol] 4.0 10*3/uL Low 4.4-11.0 [facility] Comment on above: Performed By: #### L 500.2500, L100.0100, L501.4021 ####[facility] [address] [place], [address] Carbon dioxide, total [Moles /volume] in Central venous bloodOrdered By: Seb Goodwin on 09-04-2024 CO2 [Moles/Vol] 23.9 mmol/L 21.0-32.0 [facility] Chest PA and Lateralon 09-04 Chest PA and Lateral [facility] Imaging Services [address] [place], [place] [address] Chest PA and Lateral MR#: [id number] Acct: [id number] Name: PERFECTO HOLMAN Rep #: [id number] : 1980 F 44 From: Travis Bustillos PCP: Dr. Enedina Medel MD Status: REG ER Study: Chest PA and Lateral Date of Exam: 09/04/24 Exam# [id number] Ordering Dr: Seb Goodwin DO EXAM: CHEST [...] evidence of acute cardiopulmonary disease. Reading Location: [address] CC: Dr. Enedina Medel MD; Dr. Seb Goodwin DO Bookmaker Map: Signed Normal [facility] Chloride assayOrdered By: Josr Goodwin on 09-04-2024 Chloride [Moles/Vol] 105 mmol/L 98-108 [facility] D-Dimer Quantitative (DVT/PE )on 09-04-2024 D-DIMER QUANT < 0.27 Low 0.27-0.49 [facility] Comment on above: Result Comment: NORM AL D-Dimer level (<0.50) indicates no DVT or PE. Performed By: #### L 300.8000 #### [facility] [address] [facility]. [place], [place], [address] D-dimer measurement for deep venous thrombosisOrdered By: Seb Goodwin on 09-04-2024 D-Dimer Quantitative (PE/DVT) < 0.27 FEU/ug/m Low 0.27-0.49 [facility] Comment on above: NORMAL D-Dimer level (<0.50) indicates no DVT or PE. Emergency Department Summary on 09-04-2024 Emergency Department Summary [facility] Medical Records Department [address] [place] [address] Emergency Department Summary 09/04/24 MR#: [id number] Acct: [id number] Name: PERFECTO HOLMAN Rep #: [id number] : 1980 44 From: Seb Goodwin DO [...] clots. Patient denies any recent sick contacts. 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 [...] or conc (more content not included)... Normal [facility] Eosinophil percentageOrdered By: Seb Goodwin on 09-04-2024 Eosinophils/100 WBC (Bld) 2.3 % 0-5 [facility] Erythrocyte distribution wid th ratioOrdered By: Seb Goodwin on 09-04-2024 Erythrocyte distribution width (RBC) [Ratio] 13.2 % 11.6-14.6 [facility] Erythrocyte distribution wid th standard deviationOrdered By: Seb Goodwin on 09-04-2024 Erythrocyte distribution width (RBC) [Entitic vol] 45.6 fL High 35.1-43.9 [facility] Erythrocyte distribution width (RBC) [Ratio] 45.6 fl High 35.1-43.9 [facility] Estimation of creatinine janet aranceOrdered By: Seb Goodwin on 09-04-2024 Estimated Creatinine Clearance Calc 51.11 ml/min 50-250 [facility] GFR/1.73 sq M.predicted mamie g non-blacks MDRD (S/P/Bld) [Vol rate/Area]Ordered By: Seb Goodwin on 09-04-2024 Estimated GFR (MDRD) Non-Af Amer 67 >60 [facility] Comment on above: mL/min/1.73m2 CKD-EP I Creatinine Equation (2020) Glomerular filtration rate ( GFR) estimation/1.73 sq m using serum, plasma, or whole bOrdered By: Seb Goodwin on 09-04-2024 GFR/1.73 sq M.predicted among non-blacks MDRD (S/P/Bld) [Vol rate/Area] 67 mL/min/{1.73_m2} >60 [facility] Comment on above: mL/min/1.73m2 CKD-EP I Creatinine Equation (2020) Hematocrit Auto (Bld) [Volum e fraction]Ordered By: Seb Goodwin on 09-04-2024 Hematocrit (Bld) [Volume fraction] 39.9 % 37-47 [facility] Hemoglobin measurementOrdere d By: Seb Goodwin on 09-04-2024 Hemoglobin (Bld) [Mass/Vol] 13.4 g/dL 12.0-15.0 [facility] Immature granulocytes/100 WB C Auto (Bld)Ordered By: Seb Goodwin on 09-04-2024 Immature granulocytes/100 WBC (Bld) 0.300 % 0.0-0.9 [facility] Comment on above: IG% - Immature Granu locytes (promyelocytes, myelocytes and metamyelocytes) > 1% indicates that a LEFT SHIFT is Present. L499.0042on 09-04-2024 Trop T High Sen < 6 Normal <=14 [facility] Comment on above: Performed By: #### L 499.0042 ####[facility] [address] [place], [address] L499.0043on 09-04-2024 Trop T High Sen Normal <=14 [facility] Comment on above: Result Comment: Canc elled via OM: Order cancelled - Patient discharged Performed By: #### L 499.0043 ####[facility] [address] [place], [address] L501.4021on 09-04-2024 Trop T High Sen < 6 Normal <=14 [facility] Comment on above: Performed By: #### L 500.2500, L100.0100, L501.4021 ####[facility] [address] [place], [address] Lymphocytes Auto (Unsp spec) [#/Vol]Ordered By: Seb Goodwin on 09-04-2024 Lymphocytes (Bld) [#/Vol] 0.96 10*3/uL 0.83-4.51 [facility] Lymphocytes/100 WBC Auto (Un sp spec)Ordered By: Seb Goodwin on 09-04-2024 Lymphocytes/100 WBC (Bld) 24.2 % 19-41 [facility] MCV (mean corpuscular volume ) determinationOrdered By: Seb Goodwin on 09-04-2024 MCV (RBC) [Entitic vol] 93.4 fL 81-99 [facility] Mean corpuscular hemoglobin (MCH) determinationOrdered By: Seb Goodwin on 09-04-2024 MCH (RBC) [Entitic mass] 31.4 pg 27.0-32.0 [facility] Mean corpuscular hemoglobin concentration (MCHC) determinationOrdered By: Seb Goodwin on 09-04-2024 MCHC (RBC) [Mass/Vol] 33.6 g/dL 32-36 [facility] Mean platelet volume determi nationOrdered By: Seb Goodwin on 09-04-2024 Platelet mean volume (Bld) [Entitic vol] 10.8 fL 6.2-12.0 [facility] Monocyte percentageOrdered B y: Seb Goodwin on 09-04-2024 Monocytes/100 WBC (Bld) 7.3 % 0-10 [facility] Neutrophil percentageOrdered By: Seb Goodwin on 09-04-2024 Neutrophils/100 WBC (Bld) 64.9 % 47-70 [facility] No Panel InformationOrdered By: Seb Goodwin on 09-04-2024 Troponin T High Sensitivity < 6 ng/L <14 [facility] Nucleated red blood cell per centageOrdered By: Seb Goodwin on 09-04-2024 Nucleated RBC/100 WBC (Bld) [Ratio] 0 % 0-5 [facility] Platelet countOrdered By: Josr Goodwin on 09-04-2024 Platelets (Bld) [#/Vol] 191 10*3/uL 150-450 [facility] Potassium (Unsp spec) [Mass/ Vol]Ordered By: Seb Goodwin on 09-04-2024 Potassium [Moles/Vol] 3.9 mmol/L 3.3-5.1 [facility] Potassium measurement (mass/ volume)Ordered By: Seb Goodwin on 09-04-2024 Potassium (Unsp spec) [Mass/Vol] 3.9 mmol/L 3.3-5.1 [facility] RBC Auto (Bld) [#/Vol]Ordere d By: Seb Goodwin on 09-04-2024 RBC (Bld) [#/Vol] 4.27 10*6/uL 4.2-5.[address] [facility] Serum creatinine measurement (mass/volume)Ordered By: Seb Goodwin on 09-04-2024 Creatinine [Mass/Vol] 1.04 mg/dL 0.70-1.20 [facility] Serum glucose measurement (m ass/volume)Ordered By: Seb Goodwin on 09-04-2024 Glucose [Mass/Vol] 128 mg/dL High 70-99 [facility] Serum or plasma calcium cat urement (mass/volume)Ordered By: Seb Goodwin on 09-04-2024 Calcium [Mass/Vol] 9.4 mg/dL 7.6-11.0 [facility] Serum or plasma urea nitroge n measurement (mass/volume)Ordered By: Seb Goodwin on 09-04-2024 Urea nitrogen [Mass/Vol] 19 mg/dL 4-19 [facility] Sodium levelOrdered By: Bernardo Goodwin on 09-04-2024 Sodium [Moles/Vol] 142 mmol/L 133-145 [facility] Troponin T.cardiac High sens itivity method [Mass/Vol]Ordered By: Seb Goodwin on 09-04-2024 Troponin T High Sensitivity 2 Hour < 6 ng/L <14 [facility] Troponin T.cardiac [Mass/vol ume] in Serum or Plasma by High sensitivity methodOrdered By: Seb Goodwin on 09-04-2024 Troponin T.cardiac High sensitivity method [Mass/Vol] < 6 ng/L <14 [facility] White blood cell (WBC) count Ordered By: Seb Goodwin on 09-04-2024 WBC (Bld) [#/Vol] 4.0 10*3/uL Low 4.4-11.0 [facility] T4 Free Directon 09-03-2024 T4 FREE DIRECT 1.40 ng/dL Normal 0.76-1.46 [facility] Comment on above: Performed By: #### L 506.0400, L501.9520 ####[facility] [address] [place], [place], [address] T4 freeOrdered By: Enedina rolle on 09-03-2024 Free T4 [Mass/Vol] 1.40 ng/dL 0.76-1.46 [facility] TSH DL <= 0.005 mIU/L QnOrde red By: Enedina Medel on 09-03-2024 Thyroid Stimulating Hormone (TSH) 0.661 uIU/mL 0.300-4.200 [facility] TSH Qn 0.661 uIU/mL 0.300-4.200 [facility] Thyroid Stim Hormone (TSH)on 09-03-2024 TSH 0.661 uIU/mL Normal 0.300-4.200 [facility] Comment on above: Performed By: #### L 506.0400, L501.9520 ####[facility] [address] [place], [address] Vitamin D,25 Hydroxyon 04-18 Vitamin D 25-OH 47.9 ng/mL Normal [facility] Comment on above: Result Comment: Melba min D 25(OH) Status Range Deficiency <20 ng/mL (50nmol/L) Insufficiency 20 - 30 ng/mL (50 - 75 nmol/L) Sufficiency 30 - 100 ng/mL (75 - 250 nmol/L) Toxicity >100 ng/mL (>250 nmol/L) Performed By: #### L 500.4050, L506.1000, L506.0400, L100.0100, L500.4100, L501.9520 #### [facility] [address] [place], [address] CBC W/Diff, Automatedon 11- Absolute Lymph 1.60 X10 3/uL Normal 0.83-4.51 [facility] Comment on above: Performed By: #### L 500.4050, L506.1000, L506.0400, L100.0100, L500.4100, L501.9520 #### [facility] [address] [place], [address] Absolute Neut 2.9 X10 3/uL Normal 2.0-7.7 [facility] Comment on above: Performed By: #### L 500.4050, L506.1000, L506.0400, L100.0100, L500.4100, L501.9520 #### [facility] [address] [place], [address] Basophils/100 WBC (Bld) 0.8 % Normal 0-1 [facility] Comment on above: Performed By: #### L 500.4050, L506.1000, L506.0400, L100.0100, L500.4100, L501.9520 #### [facility] [address] [place], [address] Eosinophils/100 WBC (Bld) 6.6 % High 0-5 [facility] Comment on above: Performed By: #### L 500.4050, L506.1000, L506.0400, L100.0100, L500.4100, L501.9520 #### [facility] [address] [place], [address] Erythrocyte distribution width (RBC) [Ratio] 12.8 % Normal 11.6-14.6 [facility] Comment on above: Performed By: #### L 500.4050, L506.1000, L506.0400, L100.0100, L500.4100, L501.9520 #### [facility] [address] [place], [address] Hematocrit (Bld) [Volume fraction] 39.9 % Normal 37-47 [facility] Comment on above: Performed By: #### L 500.4050, L506.1000, L506.0400, L100.0100, L500.4100, L501.9520 #### [facility] [address] [place], [address] Hemoglobin (Bld) [Mass/Vol] 12.8 g/dL Normal 12.0-15.0 [facility] Comment on above: Performed By: #### L 500.4050, L506.1000, L506.0400, L100.0100, L500.4100, L501.9520 #### [facility] [address] [place], [address] IG% 0.400 Normal 0.0-0.9 [facility] Comment on above: Result Comment: IG% - Immature Granulocytes (promyelocytes, myelocytes and metamyelocytes) > 1% indicates that a LEFT SHIFT is Present. Performed By: #### L 500.4050, L506.1000, L506.0400, L100.0100, L500.4100, L501.9520 #### [facility] [address] [place], [address] Lymphocytes/100 WBC (Bld) 30.1 % Normal 19-41 [facility] Comment on above: Performed By: #### L 500.4050, L506.1000, L506.0400, L100.0100, L500.4100, L501.9520 #### [facility] [address] [place], [address] MCH (RBC) [Entitic mass] 30.5 pg Normal 27.0-32.0 [facility] Comment on above: Performed By: #### L 500.4050, L506.1000, L506.0400, L100.0100, L500.4100, L501.9520 #### [facility] [address] [place], [address] MCHC (RBC) [Mass/Vol] 32.1 g/dL Normal 32-36 [facility] Comment on above: Performed By: #### L 500.4050, L506.1000, L506.0400, L100.0100, L500.4100, L501.9520 #### [facility] [address] [place], [address] MCV (RBC) [Entitic vol] 95.2 fL Normal 81-99 [facility] Comment on above: Performed By: #### L 500.4050, L506.1000, L506.0400, L100.0100, L500.4100, L501.9520 #### [facility] [address] [place], [address] Monocytes/100 WBC (Bld) 7.1 % Normal 0-10 [facility] Comment on above: Performed By: #### L 500.4050, L506.1000, L506.0400, L100.0100, L500.4100, L501.9520 #### [facility] [address] [place], [address] Neutrophils/100 WBC (Bld) 55.0 % Normal 47-70 [facility] Comment on above: Performed By: #### L 500.4050, L506.1000, L506.0400, L100.0100, L500.4100, L501.9520 #### [facility] [address] [place], [address] Nucleated RBC (Bld) [#/Vol] 0 10*3/uL Normal 0-5 [facility] Comment on above: Performed By: #### L 500.4050, L506.1000, L506.0400, L100.0100, L500.4100, L501.9520 #### [facility] [address] [place], [address] Platelet mean volume (Bld) [Entitic vol] 11.0 fL Normal 6.2-12.0 [facility] Comment on above: Performed By: #### L 500.4050, L506.1000, L506.0400, L100.0100, L500.4100, L501.9520 #### [facility] [address] [place], [address] Platelets (Bld) [#/Vol] 195 10*3/uL Normal 150-450 [facility] Comment on above: Performed By: #### L 500.4050, L506.1000, L506.0400, L100.0100, L500.4100, L501.9520 #### [facility] [address] [place], [address] RBC (Bld) [#/Vol] 4.19 10*6/uL Low 4.2-5.[address] [facility] Comment on above: Performed By: #### L 500.4050, L506.1000, L506.0400, L100.0100, L500.4100, L501.9520 #### [facility] [address] [place], [address] RDW SD 44.4 fl High 35.1-43.9 [facility] Comment on above: Performed By: #### L 500.4050, L506.1000, L506.0400, L100.0100, L500.4100, L501.9520 #### [facility] [address] [place], [address] WBC (Bld) [#/Vol] 5.3 10*3/uL Normal 4.4-11.0 [facility] [facility] Comment on above: Performed By: #### L 500.4050, L506.1000, L506.0400, L100.0100, L500.4100, L501.9520 #### [facility] [address] [place], [address] Comprehensive Metabolic Prof caon 04-16-2024 Albumin [Mass/Vol] 4.1 g/dL Normal 3.2-5.0 [facility] Comment on above: Performed By: #### L 500.4050, L506.1000, L506.0400, L100.0100, L500.4100, L501.9520 #### [facility] [address] [place], [address] Albumin/Globulin [Mass ratio] 1.1 {ratio} Normal 0.9-2.4 [facility] Comment on above: Performed By: #### L 500.4050, L506.1000, L506.0400, L100.0100, L500.4100, L501.9520 #### [facility] [address] [place], [address] ALK P 61 U/L Normal 45-117 [facility] Comment on above: Performed By: #### L 500.4050, L506.1000, L506.0400, L100.0100, L500.4100, L501.9520 #### [facility] [address] [place], [address] ALT [Catalytic activity/Vol] 27 U/L Normal 13-56 [facility] Comment on above: Performed By: #### L 500.4050, L506.1000, L506.0400, L100.0100, L500.4100, L501.9520 #### [facility] [address] [place], [address] AST [Catalytic activity/Vol] 21 U/L Normal 15-37 [facility] Comment on above: Performed By: #### L 500.4050, L506.1000, L506.0400, L100.0100, L500.4100, L501.9520 #### [facility] [address] [place], [address] Bilirubin [Mass/Vol] 0.40 mg/dL Normal 0.20-1.00 [facility] Comment on above: Result Comment: For patients on eltrombopag therapy, use of Dimension [place] TBIL is not recommended. Performed By: #### L 500.4050, L506.1000, L506.0400, L100.0100, L500.4100, L501.9520 #### [facility] [address] [place], [address] BUN/CRE 17.0 RATIO Normal 10-20 [facility] Comment on above: Performed By: #### L 500.4050, L506.1000, L506.0400, L100.0100, L500.4100, L501.9520 #### [facility] [address] [place], [address] CA,Total 8.9 mg/dL Normal 8.5-10.1 [facility] Comment on above: Performed By: #### L 500.4050, L506.1000, L506.0400, L100.0100, L500.4100, L501.9520 #### [facility] [address] [place], [address] Chloride [Moles/Vol] 109 mmol/L High 98-107 [facility] Comment on above: Performed By: #### L 500.4050, L506.1000, L506.0400, L100.0100, L500.4100, L501.9520 #### [facility] [address] [place], [address] CO2 [Moles/Vol] 25.0 mmol/L Normal 21.0-32.0 [facility] Comment on above: Performed By: #### L 500.4050, L506.1000, L506.0400, L100.0100, L500.4100, L501.9520 #### [facility] [address] [place], [address] Creatinine [Mass/Vol] 1.12 mg/dL High 0.55-1.02 [facility] Comment on above: Result Comment: The validity of the calculated GFR GFRAA in patients over 70 years has not been determined. Clinical correlation is essential. Performed By: #### L 500.4050, L506.1000, L506.0400, L100.0100, L500.4100, L501.9520 #### [facility] [address] [place], [address] EST GFR - AA 67 mL/min Normal >60 [facility] Comment on above: Result Comment: Afri can Finnish GFR Calc Performed By: #### L 500.4050, L506.1000, L506.0400, L100.0100, L500.4100, L501.9520 #### [facility] [address] [place], [address] GAP 7 Normal 5-15 [facility] Comment on above: Performed By: #### L 500.4050, L506.1000, L506.0400, L100.0100, L500.4100, L501.9520 #### [facility] [address] [place], [address] GFR/1.73 sq M.predicted among non-blacks MDRD (S/P/Bld) [Vol rate/Area] 56 mL/min/{1.73_m2} Low >60 [facility] Comment on above: Result Comment: Non- GFR Calc Performed By: #### L 500.4050, L506.1000, L506.0400, L100.0100, L500.4100, L501.9520 #### [facility] [address] [place], [address] Globulin (S) [Mass/Vol] 3.7 g/dL Normal 2.2-4.2 [facility] Comment on above: Performed By: #### L 500.4050, L506.1000, L506.0400, L100.0100, L500.4100, L501.9520 #### [facility] [address] [place], [address] Glucose [Mass/Vol] 95 mg/dL Normal 74-106 [facility] Comment on above: Performed By: #### L 500.4050, L506.1000, L506.0400, L100.0100, L500.4100, L501.9520 #### [facility] [address] [place], [address] Potassium [Moles/Vol] 3.6 mmol/L Normal 3.5-5.1 [facility] Comment on above: Performed By: #### L 500.4050, L506.1000, L506.0400, L100.0100, L500.4100, L501.9520 #### [facility] [address] [place], [address] Sodium [Moles/Vol] 141 mmol/L Normal 136-145 [facility] Comment on above: Performed By: #### L 500.4050, L506.1000, L506.0400, L100.0100, L500.4100, L501.9520 #### [facility] [address] [place], [address] T PROT 7.8 g/dL Normal 6.4-8.2 [facility] Comment on above: Performed By: #### L 500.4050, L506.1000, L506.0400, L100.0100, L500.4100, L501.9520 #### [facility] [address] [place], [address] Urea nitrogen [Mass/Vol] 19 mg/dL High 7-18 [facility] Comment on above: Performed By: #### L 500.4050, L506.1000, L506.0400, L100.0100, L500.4100, L501.9520 #### [facility] [address] [place], [address] Lipid Profileon 04-16-2024 Cholesterol [Mass/Vol] 185 mg/dL Normal 200 [facility] Comment on above: Result Comment: <200 mg/dL Desirable 200-240 mg/dL Borderline >240 mg/dL High Risk Performed By: #### L 500.4050, L506.1000, L506.0400, L100.0100, L500.4100, L501.9520 #### [facility] [address] [place], [address] Cholesterol in HDL [Mass/Vol] 79 mg/dL Normal [facility] Comment on above: Result Comment: The drugs N-Acetylcysteine and Metamizole may falsely depress this assay. Reference Range HDL <40 mg/dL Low HDL Cholesterol HDL >or= 60 mg/dL High HDL Cholesterol Performed By: #### L 500.4050, L506.1000, L506.0400, L100.0100, L500.4100, L501.9520 #### [facility] [address] [place], [address] Cholesterol in LDL [Mass/Vol] 94 mg/dL Normal 0-130 [facility] Comment on above: Performed By: #### L 500.4050, L506.1000, L506.0400, L100.0100, L500.4100, L501.9520 #### [facility] [address] [place], [address] Cholesterol in VLDL [Mass/Vol] 12 mg/dL Normal 5-40 [facility] Comment on above: Performed By: #### L 500.4050, L506.1000, L506.0400, L100.0100, L500.4100, L501.9520 #### [facility] [address] [place], [address] Triglyceride [Mass/Vol] 62 mg/dL Normal [facility] Comment on above: Result Comment: The drugs N-Acetylcysteine and Metamizole may falsely depress this assay. Serum Triglycerides Reference Interval Normal <150 mg/dL Borderline high 150 - 199 mg/dL High 200 - 499 mg/dL Very High > or = 500 mg/dL Performed By: #### L 500.4050, L506.1000, L506.0400, L100.0100, L500.4100, L501.9520 #### [facility] [address] [facility] [place], [address] T4 Free Directon 04-16-2024 T4 FREE DIRECT 1.17 ng/dL Normal 0.76-1.46 [facility] Comment on above: Performed By: #### L 500.4050, L506.1000, L506.0400, L100.0100, L500.4100, L501.9520 #### [facility] [address] [place], [address] Thyroid Stim Hormone (TSH)on 04-16-2024 TSH 0.737 uIU/mL Normal 0.358-3.740 [facility] Comment on above: Performed By: #### L 500.4050, L506.1000, L506.0400, L100.0100, L500.4100, L501.9520 #### [facility] [address] [facility] [place], [address] Thyroid Stim Hormone (TSH)on 01-21-2024 TSH 0.34 uIU/mL Low 0.358-3.74 [facility] Comment on above: Performed By: #### L 501.9520 #### [facility] [address] [place], [address] Serum or plasma thyroid stim ulating hormone (TSH) measurement (units/volume)Ordered By: Enedina Medel on 10-10-2023 TSH Qn 3.77 uIU/mL 0.358-3.74 [facility] CNPKimberli 08-21-2023 CNPN Telephone (OBGYWM) PERFECTO HOLMAN ([id number]) 1980 F Date Time Provider Department 08/21/23 [...] 06/26/2016 Hypothyroidism affecting [O99.280, E0*07/17/2015 06/26/2016 control [[id number]] 11/07/2015 Cervical polyp [N84.1] 08/19/2023 Encounter Status:Closed by KASIA AARON on 08/21/23 Normal [facility] CNOVon 08-19-2023 CNOV Office Visit (OBGYWM) PERFECTO HOLMNA ([id number]) 1980 F Date Time Provider Department 08/19/23 10:30 AM ANA MARÍA GOODE During your visit today, we recorded the following information about you: Blood pressure Weight 110/78 48.3 kg Ana María Goode APRN.CNP 08/19/2023 10:52 AM Signed Machine Veneer Repairer offered: Patient declines. Perfecto Valle Soraidamarvel presents [...] Reviewed: 08/19/2023 Reviewed by: Ana María Goode APRN.INDUSTRIAL HYGENIST - Fully Assessed Reason for Visit: cervical polypectomy [Other] Primary Visit Diagnosis:Cervical polyp [N84.1] Order(s):CERVICAL BIOPSY OR EXCISION [[id number]] Order #: [id number] SURGICAL PATHOLOGY [[id number]] Order #: [id number] Prescriptions as of 08/19/2023 - QUEtiapine (SEROQUEL) [...] 06/26/2016 Hypothyroidism affecting [O99.280, E0*07/17/2015 06/26/2016 control [[id number]] 11/07/2015 Cervical polyp [N84.1] 08/19/2023 Other instructions from your clinician: YOUR RECOVERY After your polypectomy you may have: Vaginal bleeding Mild cramping Do NOT put anything in the vagina for 1 week This includes: (more content not included)... Normal [facility] SURGICAL PATHOLOGYon 024 CASE REPORT Normal [facility] Comment on above: Order Comment: Speci men Type: TISSUE SPECIMEN Ordering Facility: [facility] Address: [address] [place] [address] Result Comment: Surg [facility] Pathology Report Case: [id number] Authorizing Provider: Ana María Goode APRN.INDUSTRIAL HYGENIST Collected: 08/19/2023 11:00 AM Ordering Location: OB/Gynecology Received: 08/19/2023 12:22 PM Pathologist: Mega Samuels MD Specimen: ENDOCERVIX POLYP Performed By: #### S #### [facility] CLIA [id number] [address] [place] [address] [place] CLINICAL HISTORY polyp Normal [facility] Comment on above: Order Comment: Speci men Type: TISSUE SPECIMEN Ordering Facility: [facility] Address: [address] [place] [address] Performed By: #### S #### [facility] CLIA [id number] [address] [place], [place] [address] [place] FINAL DIAGNOSIS Normal [facility] Comment on above: Order Comment: Speci men Type: TISSUE SPECIMEN Ordering Facility: [facility] Address: [address] [place] [address] Result Comment: A. E ndocervix, polypectomy: - Benign endocervical polyp. ACV/mm/08/21/2023 Performed By: #### S #### [facility] CLIA [id number] [address] [place] [address] [place] FINAL PERFORMING LAB Normal [facility] Comment on above: Order Comment: Speci men Type: TISSUE SPECIMEN Ordering Facility: [facility] Address: [address] [place] [address] Result Comment: Diag nostic interpretation performed at [facility], [address] [place] [address] CLIA# [id number] Trust Vault Clerk: Paco Alvarez M.D. Performed By: #### S #### [facility] CLIA [id number] [address] [place] [address] [place] GROSS DESCRIPTION Normal [facility] Comment on above: Order Comment: Speci men Type: TISSUE SPECIMEN Ordering Facility: [facility] Address: [address] [place] [address] Result Comment: A. E NDOCERVIX POLYP Received in formalin is a segment of brown mucosal covered polypoid tissue measuring 0.7 x 0.5 x 0.2 cm. The specimen is bisected. Totally submitted in formalin in one cassette. SS August 19, 2023 11:48 PM Gross examination performed at [facility], [address] [place] [address] Performed By: #### S #### [facility] CLIA [id number] [address] [place] [address] [place] CNOVon 08-18-2023 CNOV Office Visit (OBGYWM) PERFECTO HOLMAN ([id number]) 1980 F Date Time Provider Department 08/18/23 7:00 AM ANA MARÍA GOODE During your visit today, we recorded the following information about you: Blood pressure Weight Last Period 48.6 kg 01/15/23 Ana María Goode, IBRAHIMA.INDUSTRIAL HYGENIST 08/18/2023 9:34 AM Signed Machine Veneer Repairer offered: Patient declines. Perfecto is a 43 [...] L2 SAB0 IAB0 Ectopic0 Multiple0 Live Births2 Clinical Studies Specialist History LMP: 01/15/2023, Having periods Age at Menarche: Age at First : Age at Menopause: Clinical Studies Specialist History Comments: Sexual Activity: Yes; Male Contraception: [...] external genitalia normal, normal Barth[place]'s glands, urethra, [place]'s glands, no vulvar lesions, good vaginal support, [...] way. F (more content not included)... Normal [facility] HPV W/GENOTYPE THIN PREPon 0 08-18-2023 HPV 16 Ag Ql (Unsp spec) Negative Normal Neg ative for HPV DNA high risk type 16 by PCR [facility] Comment on above: Order Comment: Speci men Type: FLUID SPECIMEN Ordering Facility: [facility] Address: [address] [place] [address] Performed By: #### L [id number], HPVHRT #### [facility] CLIA [id number] [address] [place] [address] [place] HPV 18 Ag Ql (Unsp spec) Negative Normal Neg ative for HPV DNA high risk type 18 by PCR [facility] Comment on above: Order Comment: Speci men Type: FLUID SPECIMEN Ordering Facility: [facility] Address: [address] [place] [address] Performed By: #### L [id number], HPVHRT #### [facility] CLIA [id number] [address] [place] [address] [place] HPV 31+33+35+39+45+51+52+56+ 58+59+66+68 DNA ANA+probe Ql (Cvx) Negative for HPV DNA high risk types: 31,33,35,39,45,51,52 ,56,58,59,66,68 by PCR. Normal Negative for HPV DNA high risk types: 31,33,35,39,4 5,51,52,56,58 ,59,66,68 by PCR. [facility] Comment on above: Order Comment: Speci men Type: FLUID SPECIMEN Ordering Facility: [facility] Address: [address] [place] [address] Performed By: #### L [id number], HPVHRT #### [facility] CLIA [id number] [address] [place] [address] [place] PAP TESTon 08-18-2023 ADEQUACY Satisfactory for interpretation Normal [facility] Comment on above: Order Comment: Speci men Type: FLUID SPECIMEN Ordering Facility: [facility] Address: [address] [place] [address] Performed By: #### L [id number], HPVHRT #### [facility] CLIA [id number] [address] [place] [address] [place] CASE REPORT Normal [facility] Comment on above: Order Comment: Speci men Type: FLUID SPECIMEN Ordering Facility: [facility] Address: [address] [place] [address] Result Comment: Gyne cologic Cytology Report Case: [id number] Authorizing Provider: Ana María Goode APRN.INDUSTRIAL HYGENIST Collected: 08/18/2023 08:07 AM Ordering Location: OB/Gynecology Received: 08/18/2023 11:56 AM First Screen: [place], [place], [place], ASCP Specimen: Pap Test, ThinPrep, Cervix Performed By: #### L [id number], HPVHRT #### [facility] CLIA [id number] [address] [place] [address] [place] CLINICAL HISTORY, CYTOLOGY, TAR WORKER Routine Exam Normal [facility] Comment on above: Order Comment: Speci men Type: FLUID SPECIMEN Ordering Facility: [facility] Address: [address] [place] [address] Performed By: #### L [id number], HPVHRT #### [facility] CLIA [id number] [address] [place] [id number] [place] FINAL PERFORMING LAB Normal [facility] Comment on above: Order Comment: Speci men Type: FLUID SPECIMEN Ordering Facility: [facility] Address: [address] [place] [address] Result Comment: Tech nical component, steel erector apprentice screening performed at [facility], [address] [place] [address] [place] [address] CLIA# [id number] Diagnostic interpretation performed at [facility], [address] [place], [place] [address] CLIA# [id number] Trust Vault Clerk: Paco Alvarez M.D. Performed By: #### L [id number], HPVHRT #### [facility] CLIA [id number] [address] [place] [address] [place] HPV REFLEX Yes HPV Normal [facility] Comment on above: Order Comment: Speci men Type: FLUID SPECIMEN Ordering Facility: [facility] Address: [address] [place] [address] Performed By: #### L [id number], HPVHRT #### [facility] CLIA [id number] [address] [place] [address] [place] INTERPRETATION, CYTOLOGY, TAR WORKER Normal [facility] Comment on above: Order Comment: Speci men Type: FLUID SPECIMEN Ordering Facility: [facility] Address: [address] [place] [address] Result Comment: Nega tive for intraepithelial lesion or malignancy. Performed By: #### L [id number], HPVHRT #### [facility] CLIA [id number] [address] [place] [address] [place] LMP 01/15/2023 Normal [facility] Comment on above: Order Comment: Speci men Type: FLUID SPECIMEN Ordering Facility: [facility] Address: [address] [place] [address] Performed By: #### L [id number], HPVHRT #### [facility] CLIA [id number] [address] [place] [address] [place] PAP DISCLAIMER COMMENT The Pap Smear is a screening test for cervical cancer. False negative results occur with all screening tests, emphasizing the need for rescreening at recommended intervals, and clinical correlation. Normal [facility] Comment on above: Order Comment: Speci men Type: FLUID SPECIMEN Ordering Facility: [facility] Address: [address] [place] [address] Performed By: #### L [id number], HPVHRT #### [facility] CLIA [id number] [address] [place] [address] [place] PAP CADD MANAGER COMMENT This specimen has been analyzed by the ThinPrep Imaging System, an automated imaging and review system, which assists the laboratory in evaluating cells on ThinPrep Pap tests. Following automated imaging, selected morrow from every slide are reviewed by a steel erector apprentice. Normal [facility] Comment on above: Order Comment: Speci men Type: FLUID SPECIMEN Ordering Facility: [facility] Address: [address] [place] [address] Performed By: #### L [id number], HPVHRT #### [facility] CLIA [id number] [address] [place] [address] [place] Serum or plasma thyroid stim ulating hormone (TSH) measurement (units/volume)Ordered By: Enedina Medel on 07-04-2023 TSH Qn 2.88 uIU/mL 0.358-3.74 [facility] Thin prep Papanicolaou smear with manual screeningOrdered By: Enedina Medel on 07-04-2023 Thin prep Papanicolaou smear with manual screening 1.04 ng/dL 0.76-1.46 [facility] - Chemistry and C hemistry - challengeOrdered By: Enedina Medel on 04-16-2023 Free T4 [Mass/Vol] 0.78 ng/dL 0.76-1.46 [facility] No Panel InformationOrdered By: Enedina Medel on 04-16-2023 Thyroid Stimulating Hormone (TSH) 13.30 uIU/mL 0.358-3.74 [facility] - Chemistry and C hemistry - challengeOrdered By: Enedina Medel on 02-03-2023 Free T4 [Mass/Vol] 0.73 ng/dL 0.76-1.46 [facility] No Panel InformationOrdered By: Enedina Medel on 02-03-2023 Thyroid Stimulating Hormone (TSH) 19.20 uIU/mL 0.358-3.74 [facility] Absolute lymphocyte countOrd ered By: Enedina Medel on 12-06-2022 Lymphocytes Auto (Unsp spec) [#/Vol] 0.95 10*3/uL 0.83-4.51 [facility] Basophil percentageOrdered B y: Enedina Medel on 12-06-2022 Basophils/100 WBC (Bld) 0.8 % 0-1 [facility] Bilirubin [Mass/Vol] 0.30 mg/dL 0.20-1.00 [facility] Comment on above: For patients on eltr ombopag therapy, use of Dimension [place] TBIL is not recommended. Chloride [Moles/Vol] 108 mmol/L 98-107 [facility] Cholesterol [Mass/Vol] 158 mg/dL <200 [facility] Comment on above: <200 mg/dL Desirable 200-240 mg/dL Borderline >240 mg/dL High Risk Eosinophils/100 WBC (Bld) 1.6 % 0-5 [facility] Glucose [Mass/Vol] 101 mg/dL 74-106 [facility] Comment on above: Fasting Glucose resu lt from 100 to 125 mg/dL suggests IMPAIRED HOMEOSTASIS per A.D.A. criteria. Neutrophils (Bld) [#/Vol] 5.7 10*3/uL 2.0-7.7 [facility] Neutrophils/100 WBC (Bld) 77.3 % 47-70 [facility] Potassium [Moles/Vol] 4.1 mmol/L 3.5-5.1 [facility] Protein [Mass/Vol] 7.6 g/dL 6.4-8.2 [facility] Sodium [Moles/Vol] 138 mmol/L 136-145 [facility] Triglyceride [Mass/Vol] 40 mg/dL <199 [facility] Comment on above: The drugs N-Acetylcy steine and Metamizole may falsely depress this assay.Serum Triglycerides Reference Interval Normal <150 mg/dL Borderline high 150 - 199 mg/dL High 200 - 499 mg/dL Very High > or = 500 mg/dL WBC (Bld) [#/Vol] 7.4 10*3/uL 4.4-11.0 [facility] Blood erythrocytes count (nu mber/volume)Ordered By: Enedina Medel on 12-06-2022 RBC (Bld) [#/Vol] 4.03 10*6/uL 4.2-5.[address] [facility] Blood hemoglobin measurement (mass/volume)Ordered By: Enedina Medel on 12-06-2022 Hemoglobin (Bld) [Mass/Vol] 13.1 g/dL 12.0-15.0 [facility] Blood lymphocytes/100 leukoc ytesOrdered By: Enedina Medel on 12-06-2022 Lymphocytes/100 WBC (Bld) 12.8 % 19-41 [facility] Blood monocytes/100 leukocyt esOrdered By: Enedina Medel on 12-06-2022 Monocytes/100 WBC (Bld) 7.2 % 0-10 [facility] Blood platelet mean volumeOr dered By: Enedina Medel on 12-06-2022 Platelet mean volume (Bld) [Entitic vol] 10.5 fL 6.2-12.0 [facility] Determination of erythrocyte mean corpuscular volume (MCV)Ordered By: Enedina Medel on 12-06-2022 MCV (RBC) [Entitic vol] 99.0 fL 81-99 [facility] Hematocrit Auto (Bld) [Volum e fraction]Ordered By: Enedina Medel on 12-06-2022 Hematocrit (Bld) [Volume fraction] 39.9 % 37-47 [facility] - Chemistry and C hemistry - challengeOrdered By: Enedina Medel on 12-06-2022 ALP [Catalytic activity/Vol] 51 U/L 45-117 [facility] ALT [Catalytic activity/Vol] 33 U/L 13-56 [facility] CO2 [Moles/Vol] 27.0 mmol/L 21.0-32.0 [facility] Free T4 [Mass/Vol] 1.29 ng/dL 0.76-1.46 [facility] Globulin (S) [Mass/Vol] 3.7 g/dL 2.2-4.2 [facility] Urea nitrogen/Creatinine [Mass ratio] 16.5 mg/mg 10-20 [facility] - Hematology and Cell countsOrdered By: Enedina Medel on 12-06-2022 Erythrocyte distribution width (RBC) [Entitic vol] 46.9 fL 35.1-43.9 [facility] Erythrocyte distribution width (RBC) [Ratio] 12.9 % 11.6-14.6 [facility] Immature granulocytes/100 WBC (Bld) 0.300 % 0.0-0.9 [facility] Comment on above: IG% - Immature Granu locytes (promyelocytes, myelocytes and metamyelocytes) > 1% indicates that a LEFT SHIFT is Present. MCH (RBC) [Entitic mass] 32.5 pg 27.0-32.0 [facility] Nucleated RBC/100 WBC (Bld) [Ratio] 0 % 0-5 [facility] MCHC Auto (RBC) [Mass/Vol]Or dered By: Enedina Medel on 12-06-2022 MCHC (RBC) [Mass/Vol] 32.8 g/dL 32-36 [facility] No Panel InformationOrdered By: Enedina Medel on 12-06-2022 Estimated GFR (MDRD) Amer 75 mL/min >60 [facility] Comment on above: GFR Calc Estimated GFR (MDRD) Non-Af Amer 62 mL/min >60 [facility] Comment on above: Non- GFR Calc Thyroid Stimulating Hormone (TSH) 6.69 uIU/mL 0.358-3.74 [facility] Vitamin D 25-Hydroxy 51.5 ng/mL [facility] Comment on above: Vitamin D 25(OH) Sta tus Range Deficiency <20 ng/mL (50nmol/L) Insufficiency 20 - 30 ng/mL (50 - 75 nmol/L) Sufficiency 30 - 100 ng/mL (75 - 250 nmol/L) Toxicity >100 ng/mL (>250 nmol/L) Platelets bldOrdered By: Gibson Medel on 12-06-2022 Platelets (Bld) [#/Vol] 169 10*3/uL 150-450 [facility] Serum or plasma albumin cat urement (mass/volume)Ordered By: Enedina Medel on 12-06-2022 Albumin [Mass/Vol] 3.9 g/dL 3.2-5.0 [facility] Serum or plasma albumin/glob ulin mass ratioOrdered By: Enedina Medel on 12-06-2022 Albumin/Globulin [Mass ratio] 1.1 {ratio} 0.9-2.4 [facility] Serum or plasma calcium cat urement (mass/volume)Ordered By: Enedina Medel on 12-06-2022 Calcium [Mass/Vol] 8.9 mg/dL 8.5-10.1 [facility] Serum or plasma cholesterol in HDL measurement (mass/volume)Ordered By: Enedina Medel on 12-06-2022 Cholesterol in HDL [Mass/Vol] 67 mg/dL >40 [facility] Comment on above: The drugs N-Acetylcy steine and Metamizole may falsely depress this assay. Reference Range HDL <40 mg/dL Low HDL Cholesterol HDL >or= 60 mg/dL High HDL Cholesterol Serum or plasma cholesterol in VLDL measurement (mass/volume)Ordered By: Enedina Medel on 12-06-2022 Cholesterol in VLDL [Mass/Vol] 8 mg/dL 5-40 [facility] Serum or plasma creatinine m easurement (mass/volume)Ordered By: Enedina Medel on 12-06-2022 Creatinine [Mass/Vol] 1.03 mg/dL 0.55-1.02 [facility] Comment on above: The validity of the calculated GFR & GFRAA in patients over 70 years has not been determined. Clinical correlation is essential. Serum or plasma low density lipoprotein (LDL) cholesterol measurement (mass/volume)Ordered By: Enedina Medel on 12-06-2022 Cholesterol in LDL [Mass/Vol] 83 mg/dL 0-130 [facility] Serum or plasma urea nitroge n measurement (mass/volume)Ordered By: Enedina Medel on 12-06-2022 Urea nitrogen [Mass/Vol] 17 mg/dL 7-18 [facility] Thin prep Papanicolaou smear with manual screeningOrdered By: Enedina Medel on 12-06-2022 Thin prep Papanicolaou smear with manual screening 19 U/L 15-37 [facility] Thin prep Papanicolaou smear with manual screening 3 5-15 [facility] Laboratory - Chemistry and C hemistry - challengeon 02-22-2022 Free T4 [Mass/Vol] 1.32 ng/dL 0.76-1.46 [facility] Work Phone: No Panel Informationon 02-22 Thyroid Stimulating Hormone (TSH) 3.19 uIU/mL 0.358-3.74 [facility] Work Phone: Laboratory - Chemistry and C hemistry - challengeon 12-19-2021 Free T4 [Mass/Vol] 1.38 ng/dL 0.76-1.46 [facility] Work Phone: No Panel Informationon 12-19 Thyroid Stimulating Hormone (TSH) 4.20 uIU/mL 0.358-3.74 [facility] Work Phone: Laboratory - Chemistry and C hemistry - challengeon 11-07-2021 Free T4 [Mass/Vol] 1.19 ng/dL 0.76-1.46 [facility] Work Phone: No Panel Informationon 11-07 Thyroid Stimulating Hormone (TSH) 7.71 uIU/mL 0.358-3.74 [facility] Work Phone: Vital Signs Date Time Vital Sign Value Performing Clinician Faci samy 09-04-2024 12:33-0400 Body temperature 98.2 [degF] Dr. Enedina Medel MD Work Phone: [facility] 09-04-2024 12:33-0400 Diastolic blood pressure 96 mm[Hg] Dr. Enedina Medel MD Work Phone: [facility] 09-04-2024 12:33-0400 Heart rate 85 /min Dr. Enedina Medel MD Work Phone: [facility] 09-04-2024 12:33-0400 Respiratory rate 18 /min Dr. Enedina Medel MD Work Phone: [facility] 09-04-2024 12:33-0400 SaO2% (BldA) [Mass fraction] 98 % Dr. Enedina Medel MD Work Phone: [facility] 09-04-2024 12:33-0400 Systolic blood pressure 113 mm[Hg] Dr. Enedina Medel MD Work Phone: [facility] 09-04-2024 08:39-0400 Body height 157.[address] Enedina Medel MD Work Phone: [facility] 09-04-2024 08:39-0400 Body mass index (BMI) [Ratio] 19.3 kg/m2 Dr. Enedina Medel MD Work Phone: [facility] 09-04-2024 08:39-0400 Body weight 47.[address] Endeina Medel MD Work Phone: [facility] 08-19-2023 10:28-0500 Body weight 48.26 kg Ana María Goode APRN.INDUSTRIAL HYGENIST Work Phone: [facility] 08-19-2023 10:28-0500 Diastolic blood pressure 78 mm[Hg] Ana María Goode APRN.INDUSTRIAL HYGENIST Work Phone: [facility] 08-19-2023 10:28-0500 Systolic blood pressure 110 mm[Hg] Ana María Goode APRN.INDUSTRIAL HYGENIST Work Phone: [facility] 08-18-2023 07:03-0500 Body weight 48.63 kg Ana María Goode APRN.INDUSTRIAL HYGENIST Work Phone: [facility] 08-18-2023 07:03-0500 Diastolic blood pressure 60 mm[Hg] Ana María Goode VIDEO NEWS EDITOR.INDUSTRIAL HYGENIST Work Phone: [facility] 08-18-2023 07:03-0500 Systolic blood pressure 90 mm[Hg] Ana María Goode VIDEO NEWS EDITOR.INDUSTRIAL HYGENIST Work Phone: [facility] Encounters Encounter Date Encounter Type Care Provider Facility Start: 12-07-2024 End: 12-07-[address] Enedina Medel MD Work Phone: -Laboratory García Shoemaker [facility] Start: 12-07-2024 End: 12-07-[address] Enedina Medel MD -Laboratory García Shoemaker [facility] Start: 12-07-2024 End: 12-07-2024 ambulatory Enedina Miaquilino Facility:[facility] Start: [facility] Start: 09-04-2024 End: 09-04-2024 Emergency department patient visit Dr. Enedina Medel MD Work Phone: -Emergency Department Work Phone: Start: 09-03-2024 End: 09-03-[address] Enedina Medel MD -Laboratory Work Phone: Start: 09-03-[address] Enedina tucker MD -Laboratory Work Phone: Start: 09-03-2024 End: 09-03-[address] Enedina Medel MD Work Phone: [facility] Work Phone: Start: 05-05-2024 Encounter for genera l adult medical examination without abnormal findings Enedina Medel [facility] Start: 04-16-2024 End: 04[facility]16[facility] Start: 01-21-2024 End: 01-21-2024 ambulatory [facility] Facility:[facility] Start: 10-10-2023 End: 10-10-2023 ambulatory [facility] Work Phone: Start: 10-10-2023 End: 10-10-2023 Patient encounter procedure [facility] Work Phone: Start: 08-21-2023 Telephone encounter Ana María mcgovern APRN.INDUSTRIAL HYGENIST Work Phone: OB/Gynecology Comment on above: Results Start: 08-19-2023 End: 08-19-2023 ambulatory [facility] Facility:[facility] Start: 08-19-2023 End: 08-19-2023 Patient encounter procedure Ana María Goode APRN.INDUSTRIAL HYGENIST Work Phone: OB/Gynecology Comment on above: Cervical polyp (Prim danilo Dx) Start: 08-18-2023 End: 08-18-2023 [facility] Facility:[facility] Start: 08-18-2023 End: 08-18-2023 Patient encounter procedure Ana María Goode APRN.INDUSTRIAL HYGENIST Work Phone: OB/Gynecology Comment on above: Encounter for gyneco logical examination with abnormal finding (Primary Dx); Amenorrhea; Cervical polyp; Encounter for Papanicolaou smear for cervical cancer screening; Special screening examination for human papillomavirus (HPV); Screening mammogram for breast cancer Start: 08-18-2023 End: 08-18-2023 Patient encounter status Ana María Goode APRN.INDUSTRIAL HYGENIST Work Phone: [facility] Start: 07-04-2023 End: 07-04-2023 Patient encounter procedure [facility] Work Phone: Start: 04-16-2023 End: 04-16-2023 ambulatory [facility] Work Phone: Start: 04-16-2023 End: 04-16-2023 Patient encounter procedure [facility] Work Phone: Start: 02-03-2023 End: 02-03-2023 ambulatory [facility] Work Phone: Start: 02-03-2023 End: 02-03-2023 Patient encounter procedure [facility], García Shoemaker [facility] Start: 12-06-2022 End: 12-06-2022 ambulatory [facility] Work Phone: Start: 12-06-2022 End: 12-06-2022 [facility] Start: 02-22-2022 End: 02-22-2022 ambulatory [facility] Work Phone: Start: 02-22-2022 End: 02-22-2022 Patient encounter procedure [facility] Start: 12-19-2021 End: 12-19-2021 [facility] Start: 11-07-2021 End: 11-07-2021 [facility] Procedures Date Procedure Procedure Detail Performing [...] section H/O s ection Ana María Goode APRN.INDUSTRIAL HYGENIST Work Phone: Start: 02-21-2012 Lipid 1996 panel - S leopoldo or Plasma Ana María Goode APRN.INDUSTRIAL HYGENIST Work Phone: Plan of Treatment Date Care Activity Detail Author Start: 11-26-2025 Urine microalbumin profile DTaP,Tdap,Td Vaccine (8 - Td or Tdap) [facility] Start: 09-04-2024 [facility] Start: 09-04-2024 [facility] Start: 06-15-2023 Depression Assessment Depression Ass essment [facility] Start: 02-13-2023 Influenza vaccination Influenza Vacc ine (#1) [facility] Start: 2023 Diabetes Screening Diabetes Screenin g [facility] Start: 2023 Lipid panel Lipid Screening [facility] Start: 2023 Screening for malign ant neoplasm of colon [facility] Start: 2018 Screening for malign ant neoplasm of breast Mammogram Screening [facility] Start: 01-22-2017 Screening for malign ant neoplasm of cervix [facility] Start: 01-13-1996 Annual PCP Team Physical Science Aide dwain Disease Visit Annual PCP Team Chronic Disease Visit [facility] Start: 01-13-1996 Hepatitis C screening Hepatitis C Sc reening [facility] Start: 1978 Covid-19 Vaccine (#1) Covid-19 Vacci ne (#1) [facility] Start: 1978 Hepatitis B Vaccine (1 of 3 - 3-dose series) Hepatitis B Vaccine (1 of 3 - 3-dose series) [facility] Biopsy cervix single/mult/excision of lesion spx CERVICAL BIOPSY OR EXCISION Procedures Routine Cervical polyp Ordered: 08/18/2023 [facility] Work Phone: Comment on above: Ordered: 08/18/2023 Biopsy cervix single/mult/excision of lesion spx CERVICAL BIOPSY OR EXCISION Procedures Routine Cervical polyp Ordered: 08/19/2023 [facility] Work Phone: Comment on above: Ordered: 08/19/2023 HPV W/GENOTYPE THIN PREP HPV W/GENOTYPE THIN PREP Lab Routine Encounter for Papanicolaou smear for cervical cancer screening Special screening examination for human papillomavirus (HPV) Encounter for gynecological examination with abnormal finding 08/18/2023 8:07 AM EST [facility] Work Phone: End: 09-16-2024 MG Breast Screening NYDIA SCREENING Radiology Routine Screening mammogram for breast cancer Encounter for gynecological examination with abnormal finding 1 Occurrences starting 08/18/2023 until 09/16/2024 [facility] Work Phone: Comment on above: 1 Occurrences starti ng 08/18/2023 until 09/16/2024 PAP TEST PAP TEST Lab Rou ann marie Encounter for Papanicolaou smear for cervical cancer screening Special screening examination for human papillomavirus (HPV) Encounter for gynecological examination with abnormal finding 08/18/2023 8:07 AM [facility] Work Phone: Patient referral [facility] Work Phone: SURGICAL PATHOLOGY SURGICAL PATH OLOGY Lab Routine Cervical polyp 08/19/2023 11:00 AM [facility] Immunization Date Immunization Notes Care Provider Lashanda gama 06-26-2016 influenza virus vacc ine, unspecified formulation Ana María Goode VIDEO NEWS EDITOR.INDUSTRIAL HYGENIST Work Phone: [facility] 11-27-2015 tetanus toxoid, redu ray diphtheria toxoid, and acellular pertussis vaccine, adsorbed Ana María Goode VIDEO NEWS EDITOR.INDUSTRIAL HYGENIST Work Phone: [facility] 09-14-2013 tetanus toxoid, redu ray diphtheria toxoid, and acellular pertussis vaccine, adsorbed Ana María Goode VIDEO NEWS EDITOR.INDUSTRIAL HYGENIST Work Phone: [facility] 04-14-2013 influenza virus vacc ine, unspecified formulation Ana María Goode VIDEO NEWS EDITOR.INDUSTRIAL HYGENIST Work Phone: [facility] 02-08-2013 tetanus toxoid, redu ray diphtheria toxoid, and acellular pertussis vaccine, adsorbed Ana María Goode VIDEO NEWS EDITOR.INDUSTRIAL HYGENIST Work Phone: [facility] 11-11-1991 measles, mumps and rubella virus vaccine Ana María Goode VIDEO NEWS EDITOR.INDUSTRIAL HYGENIST Work Phone: [facility] 02-25-1980 poliovirus vaccine, inactivated Ana María Goode APRN.INDUSTRIAL HYGENIST Work Phone: [facility] 02-20-1980 DTP-Haemophilus influenzae type b conjugate vaccine Ana María Topetehrie VIDEO NEWS EDITOR.INDUSTRIAL HYGENIST Work Phone: [facility] 05-13-1979 measles, mumps and rubella virus vaccine Ana María Goode VIDEO NEWS EDITOR.INDUSTRIAL HYGENIST Work Phone: [facility] 1980 DTP-Haemophilus influenzae type b conjugate vaccine Ana María Goode APRN.INDUSTRIAL HYGENIST Work Phone: [facility] 1980 DTP-Haemophilus influenzae type b conjugate vaccine Ana María Goode APRN.INDUSTRIAL HYGENIST Work Phone: [facility] 1978 poliovirus vaccine, inactivated Ana María Goode VIDEO NEWS EDITOR.INDUSTRIAL HYGENIST Work Phone: [facility] 1980 DTP-Haemophilus influenzae type b conjugate vaccine Ana María Goode VIDEO NEWS EDITOR.INDUSTRIAL HYGENIST Work Phone: [facility] 1978 poliovirus vaccine, inactivated Ana María Goode VIDEO NEWS EDITOR.INDUSTRIAL HYGENIST Work Phone: [facility] 1980 DTP-Haemophilus influenzae type b conjugate vaccine Ana María Topetehrie VIDEO NEWS EDITOR.INDUSTRIAL HYGENIST Work Phone: [facility] 1980 poliovirus vaccine, inactivated Ana María Goode VIDEO NEWS EDITOR.INDUSTRIAL HYGENIST Work Phone: [facility] 1980 DTP-Haemophilus influenzae type b conjugate vaccine Ana María Goode VIDEO NEWS EDITOR.INDUSTRIAL HYGENIST Work Phone: [facility] Payers Date Payer Category Payer Self-pay [id number] 2023 Private Health Insurance [facility] CHOICE PLUS [id number] 2023-Present [phone] [address] [place] [address] [facility] [id number] 2023 Unknown [id number] 2015 Unknown [id number] Private Health Insurance [id number] Unknown [id number] Unknown [id number] Unknown [id number] Unknown [id number] Unknown [id number] Unknown [id number] Unknown [id number] Unknown [id number] Social History Date Type Detail Facility Start: 08-22-2018 End: 07-31-2022 Tobacco smoking status HIIS Unknown if ever smoked [facility] Start: 1980 Sex Assigned At Female [facility] Start: 08-18-2023 End: 09-04-2024 Tobacco smoking status NHIS Never smoked tobacco [facility] Start: 08-18-2023 Tobacco use and exposure Smokeless tobacco non-user [facility] Start: 08-18-2023 End: 08-19-2023 Alcohol intake Current non-drinker of alcohol (finding) [facility] Start: 08-18-2023 End: 08-19-2023 History of Social function [facility] Start: 08-18-2023 End: 08-19-2023 Tobacco use panel [facility] National Score (1-100), lower number is lower risk 46 [facility] Start: 1980 Sex Assigned At Not on file [facility] Start: 09-04-2024 End: 09-12-2024 Sex Female (finding) [facility] NEGATED: Highlighted rowStart: NINF History of tobacco use Passive smoker [facility] Medical Equipment Procedure Code Equipment Code [...] Level Of Cons ciousness Awake;Alert;Appropriate;Follow s Commands [facility] Work Phone: Clinical Notes 07-17-2015 to 09-04-2024 Telephone Encounter - Kasia Aaron RN - 08/21/2023 2:09 PM ESTTelephone Encounter - Ana María Goode APRN.CNP - 08/21/2023 12:59 PM ESTPatient InstructionsPatient Instructions Note Date & Type Note Facility 09-04-2024 Discharge summary [facility] 09-04-2024 Radiology Diagnostic study note [facility] Services [address] [place], [place] [address] Chest PA and Lateral MR#: [id number] Acct: [id number] Name: PERFECTO HOLMAN Rep #: [id number] : 1980 F 44 From: Thai Tripp MD PCP: Dr. Enedina Medel MD Status: REG ER Study:Chest PA and Lateral Date of Exam: 09/04/24 Exam# [id number] Ordering Dr: Chanelle Goodwin DO EXAM: CHEST [...] evidence of acute cardiopulmonary disease. Reading Location: [address] CC: Dr. Enedina Medel MD; Dr. Seb Goodwin DO ~ Bookmaker Map: Signed [facility] 08-21-2023 Miscellaneous Notes Patient notified. KASIA AARON RN Please notify pt - cervical polyp pathology is benign. Ana María Goode APRN.CNP documented in this encounter [facility] 08-19-2023 Note HNO ID: [id number] Author: ANA MARÍA GOODE APRN.CNP Service: ? 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 Perfecto Holman presents for [...] to the patient. Ana María Goode APRN.CNP [facility] 08-19-2023 Instructions Juan Victor MA - [...] contact the office. 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 Perfecto Holman presents for [...] María Goode APRN.CNP documented in this encounter [facility] 08-18-2023 Note HNO ID: [id number] Author: ANA MARÍA GOODE APRN.CNP Service: ? Author Type: Nurse Practitioner Type: Progress Notes Filed: 08/18/2023 09:34 Note Text: Machine Veneer Repairer offered: Patient declines. Perfecto is a 43 [...] L2 SAB0 IAB0 Ectopic0 Multiple0 Live Births2 Clinical Studies Specialist History LMP: 01/15/2023, Having periods Age at Menarche: Age at First : Age at Menopause: Clinical Studies Specialist History Comments: Sexual Activity: Yes; Male Contraception: [...] external genitalia normal, normal Bartholin's glands, urethra, [place]'s glands, no vulvar lesions, good vaginal support, [...] at cervical polypectomy Ana María Goode APRN.ROSS [facility] 08-18-2023 Instructions Ana María Goode APRN.ROSS [...] hot flashes and has been approved by [place] [employer] for only 6 months of use, however has NOT been well studied in the [place] for adjunct faculty for medical terminology effects and THERE HAVE BEEN REPORTS OF [...] salmon and sardines and vegetables, such as Bengali cabbage, kale, and broccoli. Foods fortified with [...] acid, calcium carbonate is found in some iddx-coa-kpodnlv antacid products, such as Tums and Rolaids [...] by your doctor. 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 Perfecto is a 43 [...] L2 SAB0 IAB0 Ectopic0 Multiple0 Live Births2 Clinical Studies Specialist History LMP: 01/15/2023, Having periods Age at Menarche: Age at First : Age at Menopause: Clinical Studies Specialist History Comments: Sexual Activity: Yes; Male Contraception: [...] external genitalia normal, normal Bartholin's glands, urethra, [place]'s glands, no vulvar lesions, good vaginal support, [...] María Goode APRN.ROSS documented in this encounter [facility] 07-17-2015 History of Past i llness [...] years. She has seen Dr. Mcnamara in [place] in the past. Patient conceived on her own without any fertility medication. TKRN Family history of defects 04/14/2013 12/08/2013 Overview: 04/14/2013Patient's niece was born with cleft palate. TKRN Thyroid nodule 12/04/2010 06/26/2016 documented as of this encounter (statuses as of 08/18/2023) [facility] History of Past illness Narrative* Problem [...] years. She has seen Dr. Mcnamara in [place] in the past. Patient conceived on her own without any fertility medication. TKRN Family history of defects 04/14/2013 12/08/2013 Overview: 04/14/2013Patient's niece was born with cleft palate. TKRN Thyroid nodule 12/04/2010 06/26/2016 documented as of this encounter (statuses as of 08/19/2023) [facility] History of Past illness Narrative* Problem [...] years. She has seen Dr. Mcnamara in [place] in the past. Patient conceived on her own without any fertility medication. TKRN Family history of defects 04/14/2013 12/08/2013 Overview: 04/14/2013Patient's niece was born with cleft palate. TKRN Thyroid nodule 12/04/2010 06/26/2016 documented as of this encounter (statuses as of 08/21/2023) [facility] Author Seb Goodwin [facility] Note Date/Time September 04, 2024 12: 37pm [facility] Medical Records Department [address] [place] [address] Emergency Department Summary 09/04/24 MR#: [id number] Acct: [id number] Name: PERFECTO HOLMAN Rep #:[id number] : [...] clots. Patient denies any recent sick contacts. 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 [...] % (Auto) 64.9 Lymph % (Auto) 24.2 Long % (Auto) 7.3 Eos % (Auto) 2.3 [...] evidence of acute cardiopulmonary disease. Reading Location: [address] Discharge Plan Triage Chief Complaint: Palpitations [...] blood work was normal today. Print Language: [place] Islander Disposition Disposition: Home, Self Care What to do if you have Problems For any increased pain, shortness of breath, bleeding, nausea or vomiting, chestpain, or any unexpected problems, contact your Primary Care Provider. Call [facility] ([phone]) or report to the closest Emergency Room. Call 911 if necessary. 09/04/24 2641 <Electronically signed by Seb Goodwin DO> Suzi Signature (if applicable): CC: Dr. Enedina Medel MD ~ Signed [facility] Work Phone: Evaluation noteNo assessment information available [facility] Work Phone: Evaluation note* Diagnosis Encounter for gynecological examination with abnormal finding- Primary Routine gynecological examination Amenorrhea Absence of menstruation Cervical polyp Mucous polyp of cervix Encounter for Papanicolaou smear for cervical cancer screening Special screening examination for human papillomavirus (HPV) Screening mammogram for breast cancer [facility] Cervical polyp- Primary Mucous polyp of cervix documented in this encounter [facility] Discharge instructions Additional Instructions Follow-up with your doctor in outpatient setting. Discussed with them about wearing a Holter monitor. Return with worsening symptoms or any concerns. Your thyroid test were normal. Your chest x-ray looked normal and your rest your blood work was normal today.[facility] Work Phone: Reason for referral (narrative)* Diagnostic Procedure Only (Routine) - Pending Review Specialty Diagnoses / Procedures Referred By Grant t Referred To Contact [facility] Diagnoses Screening mammogram for breast cancer Encounter for gynecological examination with abnormal finding Procedures NYDIA SCREENING SCREENING MAMMOGRAPHY BI 2-VIEW BREAST INC Ana María Eldridge APRN.CNP [address] [place] [address] [facility] [address] [place] [address] Referral ID Status Reason Start Date Expiration Date Visits Requested Visits Authorized [id number] Pending Review Auto-Generat ed Referral 08/18/2023 09/16/2024 [address] [facility] for referral (narrative)No reason for referral information availableWH[facility] Work Phone: Advance Directives No Advanced Directives Records Found Advance Directive Response Recorded Date/ Time Advance Directives No July 02, 2018 12:17pm Living Will Yes August 22, 2018 8:52pm Power of Roll Skinner Yes August 22 8:52pm Advance Directive Response Recorded Date/ Time Advance Directives No July 02, 2018 12:17pm Living Will No July 31, 2 023 11:24pm Power of Roll Skinner No July 31, 2022 11:24pm Advance Directive Response Recorded Date/ Time Advance Directives No July 02, 2018 11:17am Living Will No July 31, 2 023 10:24pm Power of Roll Skinner No July 31, 2022 10:24pm Advance Directive Response Recorded Date/ Time Living Will No September 04, 2024 8:52am Do you have a Healthcare Power of Roll Skinner? No September 04, 2024 8:52am Advance Directives [...] Prov ider, Attending Provider, Referring Provider Active [employer] Relationship Specialty Start Date End Date Enedina Medel MD [address] [place] [address] PCP - General Family Medicine 10/20/19 Church Organist Relationship Specialty Start Date End Date Enedina Medel MD [address] [place] [address] PCP - General Family Medicine 10/20/19 Church Organist Relationship Specialty Start Date End Date Enedina Medel MD [address] [place] [address] PCP - General Family Medicine 10/20/19 Team [...] 03, 2024 End: September 03, 2024 Dr. Enedian Medel MD Referring Provider Active Start: September [...] or prosecute any alcohol or drug abuse patient.[facility] the event this information is protected by the Federal Confidentiality of Alcohol and Drug Abuse Patient Records regulations: The Federal rules restrict any use of the information to criminally investigate or prosecute any alcohol or drug abuse patient.[facility] the event this information is protected by the Federal Confidentiality of Alcohol and Drug Abuse Patient Records regulations: The Federal rules restrict any use of the information to criminally investigate or prosecute any alcohol or drug abuse patient.[facility] Reason for Visit (unrecogniz ed section and content) Reason Comments Discussion Reason Comments cervical polypectomy Reason Comments Results INFORMATION SOURCE (unrecogn ized section and content) DATE CREATED AUTHOR 09/02/2023 [facility] DATE CREATED AUTHOR AUTHOR'S ORGANIZ ATION 12/11/2024 [facility] FOR RECORDS PERTAINING TO PATIENTS WHO ARE [...] BE BASED ON THE PRIMARY CLINICAL RECORDS. [facility] [facility]. provides no warranty or guarantee of the accuracy or completeness of information in this document.
[2025-03-18 08:52] LABS: Hematocrit 37.2 % (37-47); Hemoglobin 12.1 g/dL (12.0-15.0); Immature Granulocytes Count 0.000 X10^3/uL (0.0-0.0); Mean Corp Hgb Conc 32.5 g/dL (32-36); Mean Corpuscular Volume 95.1 fL (81-99); Mean Platelet Vol. 10.7 fl (6.2-12.0); NRBC Flagged by Analyzer 0 % (0-5); Platelet Count 183 K/mm3 (150-450); RBC Distribution Width CV 13.5 % (11.6-14.6); RBC Distribution Width SD 47.7 fl (35.1-43.9); Red Blood Count 3.91 M/mm3 (4.2-5.4); White Blood Count 4.2 K/mm3 (4.4-11.0)
[2025-03-18 09:51] LABS: Cholesterol 185 mg/dL (<=200); Low Density Lipoprotein Calc. 98 mg/dL; Triglycerides 85 mg/dL; Very Low Density Lipoprotein 17 mg/dL (5-40); cholesterol:hdl ratio screen 2.65
[2025-03-18 09:55] LABS: AST(SGOT) 24 U/L (<=31); Alanine Aminotransfer ALT/SGPT 22 U/L (<=34); Albumin, Serum 4.4 g/dL (3.5-5.0); Alkaline Phosphatase 64 U/L (35-104); Anion Gap 12 (5-15); BUN 20 mg/dL (4-19); BUN/Creat Ratio 18.2 RATIO (10-20); Calcium,Total 9.1 mg/dL (7.6-11.0); Carbon Dioxide 25.3 mmol/L (21.0-32.0); Chloride 105 mmol/L (98-108); Globulin 2.7 g/dL (2.2-4.2); Glucose 94 mg/dL (70-99); Potassium 4.0 mmol/L (3.3-5.1); Vitamin D,25 Hydroxy 44.9 ng/mL (30-100)
== END | disposition home or self-care (01) ==
LOC: LAB 08:12
PROVIDERS: PCP Family Medicine; Referring Provider Family Medicine; Visit Provider Family Medicine
DX: Z00.00 Encounter for general adult medical examination without abnormal findings (principal); F31.81 Bipolar II disorder; E03.9 Hypothyroidism, unspecified; E55.9 Vitamin D deficiency, unspecified
CPT/HCPCS: 36415; 80053; 80061; 82306; 84439; 84443; 85025